=== PATIENT | female | born 1940 | race Caucasian/White ===

== ENCOUNTER 2016-11-26 19:45 | Emergency (ER) | payer MEDICARE, OTHER ==
[~2016-11-26] VITALS: Ht 157.4 cm; Wt 73.9 kg
[~2016-11-26 19:45] MED LIST: ALBUTEROL0.09 MG/A1 INH; APRESOLINE25 MG PO; ASPIRIN ADULT L81 M2 PO; ASPIRIN81 M1 PO; AUGMENTIN XR1000 MG PO; B-COMPLEX-501 CAP PO; BIAXIN500 MG PO; CARVEDILOL3.125 MG PO; CENTRUM1 TAB PO; CHERATUSSIN AC120 ML PO; CIPRO500 MG PO; CLINDAMYCIN300 MG PO; COUMADIN2.5 M1 PO; COUMADIN5 MG PO; COZAAR100 MG PO; DELTASONE20 MG PO; DIGOXIN0.25 MG PO; DILTIAZEM120 MG PO; DOXYCYCLINE HY100 M3 PO; DOXYCYCLINE100 M3 PO; DUONEB 3 MG/3 ML3 M1 INH; DUONEB 3ML 3 MG/3 ML INH; Esidrex,Oretic,25 MG PO; FELODIPINE10 MG PO; FUROSEMIDE40 MG PO; HYDR25T PO; HYDRALAZINE HYD50 MG PO; HYDROCHLOROTHIAZIDE; IMDUR SA30 MG PO; ISOSORBIDE30 MG PO; JANUVIA100 MG PO; JANUVIA50 MG PO; KLOR-CON M2020 MEQ PO; LANTUS100 U/ML SC; LASIX20 MG PO; LASIX40 MG PO; LISINOPRIL10 M1 PO; LISINOPRIL40 MG PO; Lasix80 MG PO; MEDROL DOSEPAK4 MG; MEDROL DOSEPAK4 MG PO; METFORMIN1000 MG PO; METOPROLOL SR25 MG PO; METOPROLOL SUCC50 M2 PO; MILK OF MA400 MG/5 M PO; MYSOLINE50 MG PO; Metformin Hydr500 MG PO; NAPROSYN375 MG PO; NIACIN400 MG PO; OMEPRAZOLE20 MG PO; PERCOCET 325 MG1 TA2 PO; PREDNISONE10 MG PO; PRIMIDONE50 MG PO; PROVENTIL0.09 MG/AC IH; Proloprim100 MG PO; ROBITUSSIN DM 105 ML PO; ROBITUSSIN PO; SYMBICORT1 AE1 INH; TOPROL XL100 MG PO; TOPROL XL50 M1 PO; VICODIN 5/500 505 MG PO; VITAMIN D1000 IU PO; XARE15TA PO; ZOCOR40 MG PO
[2016-11-26 20:18] LABS: BASO % 0.1 % (0.0-1.0); EOS # 0.1 10*3/uL (0.0-0.4); EOS % 1.6 % (1.0-4.0); HEMATOCRIT 36.5 % (37.0-47.0); HEMOGLOBIN 11.7 g/dl (12.0-16.0); LYMPH # 1.7 10*3/uL (1.3-4.4); LYMPH % 20.8 % (27.0-41.0); MEAN CELL VOLUME 90.3 fl (81.0-99.0); MEAN CORPUSCULAR HGB CONC 32.1 g/dl (33.0-37.0); MEAN PLATELET VOLUME 9.7 fl (9.6-12.3); MONO # 0.6 10*3/uL (0.1-1.0); MONO % 7.6 % (3.0-9.0); NEUT # 5.8 10*3/uL (2.3-7.9); NEUT % 69.7 % (47.0-73.0); PLATELET COUNT AUTOMATED 198 10*3/uL (130-400); RED BLOOD COUNT 4.04 10*6/uL (4.10-5.10); WHITE BLOOD COUNT 8.3 10*3/uL (4.8-10.8)
[2016-11-26 20:55] LABS: BILIRUBIN NEGATIVE (NEGATIVE); BLOOD 1+ (NEGATIVE); CLARITY SL CLOUDY (CLEAR); COLOR YELLOW (YELLOW); GLUCOSE NEGATIVE (NEGATIVE); KETONE NEGATIVE (NEGATIVE); LEUKO ESTERASE 2+ (NEGATIVE); NITRITE NEGATIVE (NEGATIVE); PROTEIN TRACE (NEGATIVE); SPECIFIC GRAVITY 1.015 (1.005-1.030); UROBILINOGEN 0.2 E.U./dl (0.2-1.0)
[2016-11-26 21:17] LABS: URINE REFLEX COMMENT YES (NO); WBC TNTC wbc/hpf (0-5)
[2016-11-26] MEDS ORDERED: CIPRO500 MG PO (22:26)
[2016-12-12] MEDS ORDERED: APRESOLINE25 MG PO (17:33)
[2016-12-12] MEDS ORDERED: SYMBICORT1 AE1 INH (17:34)
[2016-12-12] MEDS ORDERED: TYLENOL EXTRA500 M2 PO (17:35)
[2016-12-12] MEDS ORDERED: CALAN120 M1 PO (17:35)
[2016-12-12] MEDS ORDERED: TOPROL XL100 MG PO (17:40)
[2016-12-12] MEDS ORDERED: LISINOPRIL10 M1 PO (17:41)
[2016-12-13] MEDS ORDERED: OMEPRAZOLE D/R20 MG PO (10:08)
[2016-12-14] MEDS ORDERED: FUROSEMIDE80 MG PO (10:11)
[2016-12-14] MEDS ORDERED: METOPROLOL TART50 M1 PO (10:13)
[2016-12-21] MEDS ORDERED: K-LOR 20MEQ20 ME1 PO (11:20)
[2016-12-21] MEDS ORDERED: CALAN120 M1 PO (11:22)
[2016-12-21] MEDS ORDERED: LISINOPRIL10 M1 PO (11:24)
== END 2016-11-26 22:30 | disposition home or self-care (01) ==
LOC: ED 19:45
PROVIDERS: Emergency Medicine
DX: N39.0 Urinary tract infection, site not specified (principal); R50.9 Fever, unspecified; I48.91 Unspecified atrial fibrillation; I50.9 Heart failure, unspecified; I12.9 Hypertensive chronic kidney disease with stage 1 through stage 4 chronic kidney disease, or unspecified chronic kidney disease; N18.3 Chronic kidney disease, stage 3 (moderate); K21.9 Gastro-esophageal reflux disease without esophagitis; E78.5 Hyperlipidemia, unspecified; I25.2 Old myocardial infarction; E11.9 Type 2 diabetes mellitus without complications; E66.3 Overweight; Z68.29 Body mass index [BMI] 29.0-29.9, adult; Z88.8 Allergy status to other drugs, medicaments and biological substances

== ENCOUNTER → 2016-12-04 | Outpatient (CLI) | payer MEDICARE, OTHER ==
[~2016-12-04] MED LIST changes: +CALAN120 M1 PO; +FUROSEMIDE80 MG PO; +K-LOR 20MEQ20 ME1 PO; +METOPROLOL TART50 M1 PO; +OMEPRAZOLE D/R20 MG PO; +TYLENOL EXTRA500 M2 PO
[2016-12-04 10:34] LABS: POTASSIUM 4.5 mmol/L (3.5-5.1)
== END | disposition home or self-care (01) ==
LOC: LAB 09:46
PROVIDERS: Specialist
DX: I11.0 Hypertensive heart disease with heart failure (principal); I50.30 Unspecified diastolic (congestive) heart failure; R06.00 Dyspnea, unspecified; I48.91 Unspecified atrial fibrillation; N39.0 Urinary tract infection, site not specified

== ENCOUNTER → 2016-12-17 | Outpatient (CLI) | payer MEDICARE, OTHER ==
[2016-12-17 09:07] LABS: POTASSIUM 3.7 mmol/L (3.5-5.1)
== END | disposition home or self-care (01) ==
LOC: LAB 08:17
PROVIDERS: Specialist
DX: I11.0 Hypertensive heart disease with heart failure (principal); I50.30 Unspecified diastolic (congestive) heart failure; R06.00 Dyspnea, unspecified; I48.91 Unspecified atrial fibrillation; N39.0 Urinary tract infection, site not specified

== ENCOUNTER → 2017-02-18 | Outpatient (CLI) | payer MEDICARE, OTHER ==
[2017-02-18 08:57] LABS: POTASSIUM 4.4 mmol/L (3.5-5.1)
== END | disposition home or self-care (01) ==
LOC: LAB 08:01
PROVIDERS: Specialist
DX: I11.0 Hypertensive heart disease with heart failure (principal); I50.30 Unspecified diastolic (congestive) heart failure; R06.00 Dyspnea, unspecified; I48.91 Unspecified atrial fibrillation; N39.0 Urinary tract infection, site not specified

== ENCOUNTER → 2017-04-11 | Outpatient (CLI) | payer MEDICARE, OTHER ==
[2017-04-11 13:52] LABS: POTASSIUM 4.4 mmol/L (3.5-5.1)
== END | disposition home or self-care (01) ==
LOC: LAB 12:29
PROVIDERS: Specialist
DX: R05 Cough (principal); I11.0 Hypertensive heart disease with heart failure; I50.30 Unspecified diastolic (congestive) heart failure; E11.9 Type 2 diabetes mellitus without complications; J40 Bronchitis, not specified as acute or chronic; R06.00 Dyspnea, unspecified; I48.91 Unspecified atrial fibrillation; N39.0 Urinary tract infection, site not specified; Z95.0 Presence of cardiac pacemaker

== ENCOUNTER → 2017-04-23 | Outpatient (CLI) | payer MEDICARE, OTHER ==
[2017-04-23 09:40] LABS: POTASSIUM 4.1 mmol/L (3.5-5.1)
== END | disposition home or self-care (01) ==
LOC: LAB 08:40
PROVIDERS: Specialist
DX: I11.0 Hypertensive heart disease with heart failure (principal); I50.30 Unspecified diastolic (congestive) heart failure; I48.91 Unspecified atrial fibrillation; I44.2 Atrioventricular block, complete; R06.00 Dyspnea, unspecified; N39.0 Urinary tract infection, site not specified

== ENCOUNTER → 2017-05-09 | Outpatient (CLI) | payer MEDICARE, OTHER ==
[2017-05-09 08:52] LABS: POTASSIUM 4.6 mmol/L (3.5-5.1)
== END | disposition home or self-care (01) ==
LOC: LAB 08:11
PROVIDERS: Specialist
DX: I50.9 Heart failure, unspecified (principal); I48.91 Unspecified atrial fibrillation; I44.2 Atrioventricular block, complete

== ENCOUNTER → 2017-06-11 | Outpatient (CLI) | payer MEDICARE, OTHER ==
[2017-06-11 09:37] LABS: BILIRUBIN NEGATIVE (NEGATIVE); BLOOD TRACE-INTACT (NEGATIVE); CLARITY CLEAR (CLEAR); COLOR YELLOW (YELLOW); GLUCOSE NEGATIVE (NEGATIVE); KETONE NEGATIVE (NEGATIVE); LEUKO ESTERASE 2+ (NEGATIVE); NITRITE NEGATIVE (NEGATIVE); PROTEIN NEGATIVE (NEGATIVE); UROBILINOGEN 0.2 E.U./dl (0.2-1.0)
[2017-06-11 09:55] LABS: BACTERIA TRACE; RBC 0-2 rbc/hpf (0-2); WBC 16-20 wbc/hpf (0-5)
== END | disposition home or self-care (01) ==
LOC: LAB 09:20
PROVIDERS: Internal Medicine
DX: N39.0 Urinary tract infection, site not specified (principal)

== ENCOUNTER → 2017-07-02 | Outpatient (CLI) | payer MEDICARE, OTHER | END | disposition home or self-care (01) | LOC: RAD 09:43 | DX: N20.0 Calculus of kidney (principal); M47.896 Other spondylosis, lumbar region ==

== ENCOUNTER → 2017-07-22 | Outpatient (CLI) | payer MEDICARE, OTHER ==
[2017-07-22 12:51] LABS: CREATININE 1.26 mg/dL (0.55-1.02); POTASSIUM 4.2 mmol/L (3.5-5.1)
== END | disposition home or self-care (01) ==
LOC: LAB 11:59
PROVIDERS: Specialist
DX: I11.0 Hypertensive heart disease with heart failure (principal); I50.30 Unspecified diastolic (congestive) heart failure; I44.2 Atrioventricular block, complete; I48.91 Unspecified atrial fibrillation; N39.9 Disorder of urinary system, unspecified

== ENCOUNTER 2017-07-25 22:53 | Inpatient (IN) | payer MEDICARE, OTHER ==
[~2017-07-25] VITALS: Ht 157.4 cm; Wt 81.4 kg
--- NOTE | ~2017-07-25 | PR ---
[place], [place] PROGRESS NOTE NAME: JULIANNE MCNAMARA [facility] #: [id number] UNIT #: [id number] ROOM: 422 DOCTOR: JAVIER WHITT MD BIRTHDATE: [birth year] DOS: 07/29/2017 CARDIOLOGY PROGRESS NOTE. SUBJECTIVE: The patient is being seen prior to stress testing on 07/29/2017. The patient states that over the weekend, she did have episodes of hypotension and some breathlessness. Her diuretics were adjusted and she is feeling better today. She is breathing better. She does not have any peripheral edema. She denies any chest pain and her blood pressure is adequate. We did receive records from the [facility]. She was hospitalized in 12/2016 and did undergo an AV ashley ablation for heart rate control, followed by the placement of a Medtronic model 5076. A single ventricular lead and a Medtronic MRI safe pacemaker model A3SR01, serial #[id number]. PHYSICAL EXAMINATION: VITAL SIGNS: Today, her pulse is 70 and regular, blood pressure of 146/67. She is afebrile. NECK: Supple. She has no jugular distention. Carotids are full. LUNGS: Respirations are unlabored. Her chest is clear to auscultation and percussion. She has no presacral edema. HEART: Has a regular rhythm. I could not hear any gallops or murmurs. ABDOMEN: Soft. EXTREMITIES: Showed no edema. LABORATORY DATA: Monitor shows 100% ventricular pacing. She does have sinus rhythm with AV dissociation. Troponin levels over the weekend did show mild elevation in troponin consistent with demand supply mismatch. She did not have a typical rise/fall pattern to suggest acute myocardial infarction. IMPRESSION: 1. Chronic diastolic heart failure with acute exacerbation. 2. Status post AV ashley ablation for heart rate control. 3. Paroxysmal atrial fibrillation. The patient is currently in sinus rhythm with AV dissociation. 4. Hypotension from over diuresis. 5. Elevated troponin level, etiology to be determined, but likely due to supply demand mismatch brought on by the patient's urinary tract infection. PLAN: We will continue to adjust her medicines as indicated. She will proceed with a pharmacologic stress test today. Further recommendations will depend upon the results of her stress test. 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 I thank the hospitalist physicians for asking our advice regarding her care. [place], [place] PROGRESS NOTE NAME: JULIANNE MCNAMARA UNIT #: [id number] ROOM: [facility] DOCTOR: JAVIER WHITT MD BIRTHDATE: [birth year] JAVIER WHITT MD CM:PNTRANS [id number] JAVIER WHITT MD 07/29/17 1137 interface
[~2017-07-25 22:53] MED LIST changes: -JANUVIA50 MG PO; +ZESTRIL10 MG PO
[2017-07-25 22:59] VITALS: BP 202/93
[2017-07-25 23:41] VITALS: BP 129/56; BP 136/62
--- NOTE | 2017-07-26 00:07 | NUR ---
DR. SALTER NOTIFIED OF CRITICAL LACTIC ACID 2.5.
[2017-07-26 00:13] LABS: ACT PARTIAL THROMBO TIME 27.1 SECONDS (20.8-31.5)
[2017-07-26 00:21] LABS: ALBUMIN 3.5 gm/dl (3.1-4.5); ALKALINE PHOSPHATASE 77 U/L (45-117); BUN 23 mg/dl (7-24); CHLORIDE 108 mmol/L (98-107); CREATININE 1.06 mg/dL (0.55-1.02); LIPASE 208 U/L (73-393); MAGNESIUM 2.1 mg/dL (1.5-2.1); POTASSIUM 4.5 mmol/L (3.5-5.1); SGOT/AST 19 IU/L (3-35); SGPT/ALT 22 U/L (12-78); SODIUM 140 mmol/L (136-145)
[2017-07-26 00:28] LABS: BASO % 0.1 % (0.0-1.0); EOS # 0.3 10*3/uL (0.0-0.4); EOS % 1.9 % (1.0-4.0); HEMOGLOBIN 12.2 g/dl (12.0-16.0); LYMPH % 13.9 % (27.0-41.0); MEAN CELL VOLUME 90.5 fl (81.0-99.0); MEAN CORPUSCULAR HGB 29.8 pg (27.0-31.0); MEAN PLATELET VOLUME 11.1 fl (9.6-12.3); MONO # 0.9 10*3/uL (0.1-1.0); MONO % 6.1 % (3.0-9.0); NEUT # 11.1 10*3/uL (2.3-7.9); NEUT % 77.6 % (47.0-73.0); PLATELET COUNT AUTOMATED 191 10*3/uL (130-400); RED BLOOD COUNT 4.09 10*6/uL (4.10-5.10); RED CELL DISTRI WIDTH 12.6 % (0-14.5); TROPONIN I < 0.015 ng/ml (<0.045); WHITE BLOOD COUNT 14.3 10*3/uL (4.8-10.8)
[2017-07-26 01:07] LABS: BILIRUBIN NEGATIVE (NEGATIVE); BLOOD 1+ (NEGATIVE); CLARITY SL CLOUDY (CLEAR); COLOR YELLOW (YELLOW); GLUCOSE NEGATIVE (NEGATIVE); KETONE NEGATIVE (NEGATIVE); LEUKO ESTERASE 3+ (NEGATIVE); NITRITE NEGATIVE (NEGATIVE); PH 5.5 (5.0-9.0); SPECIFIC GRAVITY 1.025 (1.005-1.030); UROBILINOGEN 0.2 E.U./dl (0.2-1.0)
[2017-07-26 01:23] LABS: BACTERIA TRACE; WBC TNTC wbc/hpf (0-5)
[2017-07-26 02:03] VITALS: BP 129/54
[2017-07-26 02:50] VITALS: BP 121/53
--- NOTE | 2017-07-26 02:50 | NUR ---
A 76, admitted to , under the services of MICHAEL Sherman DO with a diagnosis of SOB, CHF. Chief complaint is SOB. Patient arrived via bed from ER. Monitor applied. Initial assessment completed. Vital signs taken and recorded. MICHAEL SHERMAN DO notified of admission to the unit. Orders received. See assessment for past medical history, medications and allergies. Patient and/or family oriented to unit. [facility] visitation policy reviewed. Clothing/patient valuable form completed. DEEPA PIZANO
--- NOTE | 2017-07-26 03:08 | NUR ---
CALLED DR. FUNEZ AT THIS TIME PERTAINING TO ABG ORDER THAT WAS ORDERED BY ER DOCTOR AT 11PM THAT WAS NEVER COLLECTED. ASKED IF HE STILL WANTED IT COLLECTED OR IF IT CAN BE CANCELLED, DR. FUNEZ STATED THAT IT COULD BE CANCELLED
[2017-07-26] MEDS ORDERED: VITAMIN C500 M4 PO (03:38)
[2017-07-26] MEDS ORDERED: METHENAMINE HIPP1 G1 PO (03:39)
[2017-07-26] MEDS ORDERED: MILLTRIUM SENI1 EACH PO (03:40)
--- NOTE | 2017-07-26 03:40 | NUR ---
MED REC UPDATED PER LIST PROVIDED BY LYSSA SHAH. MEDS REVIEWED ON MED REC. OTHER MEDS THAT WERE INCLUDED WERE NOT REVIEWED, BUT WERE SHOWN FILLED IN THE PATIENTS MED CLAIM HISTORY. WILL HAVE PHARMACY CALLED IN THE MORNING TO VERIFY MEDS
--- NOTE | 2017-07-26 03:58 | NUR ---
DR. FUNEZ NOTIFIED THAT PATIENTS MED REC UPDATED PER LIST PROVIDED, BUT NOTIFIED DR. FUNEZ OF MEDS THAT WERE ON THE PATIENTS MED CLAIM HISTORY AND NOT ON THE LIST. DR. FUNEZ STATED THAT HE WOULD LOOK MORE INTO IT AND THAT HE HAS TO COME UP AND SEE THE PATIENT STILL. THIS NURSE STATED THAT IT WOULD BE PASSED ON TO CALL [facility] BLOORS.
[2017-07-26 04:39] LABS: BASO % 0.2 % (0.0-1.0); EOS # 0.1 10*3/uL (0.0-0.4); EOS % 0.6 % (1.0-4.0); HEMATOCRIT 35.8 % (37.0-47.0); HEMOGLOBIN 11.5 g/dl (12.0-16.0); LYMPH # 1.8 10*3/uL (1.3-4.4); LYMPH % 15.8 % (27.0-41.0); MEAN CELL VOLUME 91.6 fl (81.0-99.0); MEAN CORPUSCULAR HGB 29.4 pg (27.0-31.0); MEAN CORPUSCULAR HGB CONC 32.1 g/dl (33.0-37.0); MEAN PLATELET VOLUME 10.4 fl (9.6-12.3); MONO # 0.9 10*3/uL (0.1-1.0); MONO % 7.3 % (3.0-9.0); NEUT # 8.8 10*3/uL (2.3-7.9); NEUT % 75.8 % (47.0-73.0); PLATELET COUNT AUTOMATED 171 10*3/uL (130-400); RED BLOOD COUNT 3.91 10*6/uL (4.10-5.10); RED CELL DISTRI WIDTH 12.9 % (0-14.5); WHITE BLOOD COUNT 11.6 10*3/uL (4.8-10.8)
--- NOTE | 2017-07-26 04:42 | NUR ---
Dr. Rivero notified of Lactic Acid of 2.7.
[2017-07-26 04:49] LABS: ACT PARTIAL THROMBO TIME 26.3 SECONDS (20.8-31.5)
[2017-07-26 05:11] LABS: ALBUMIN 3.5 gm/dl (3.1-4.5); CREATININE 1.09 mg/dL (0.55-1.02); MAGNESIUM 1.8 mg/dL (1.5-2.1); PHOSPHOROUS 2.8 mg/dL (2.5-4.9); POTASSIUM 4.5 mmol/L (3.5-5.1)
[2017-07-26 05:15] LABS: THYROID STIM HORMONE (HS) 1.1 uIU/ml (0.358-4.75)
--- NOTE | 2017-07-26 05:44 | NUR ---
DR. FUNEZ NOTIFIED OF CRITICAL LACTIC ACID. NO NEW ORDERS RECIEVED
--- NOTE | 2017-07-26 06:16 | NUR ---
DR. FUNEZ NOTIFIED OF CRITICAL TROPONIN. ORDER RECIEVED FOR PATIENT TO HAVE CONSULT WITH [facility] CARD[facility]
--- NOTE | 2017-07-26 06:24 | NUR ---
DR. WHITT PAGED AT THIS TIME
--- NOTE | 2017-07-26 06:31 | NUR ---
DR. WHITT NOTIFIED OF CONSULT SAID HE WOULD SEE PT. THIS MORNING.
[2017-07-26 07:06] LABS: VITAMIN D, 25-HYDROXY 33.7 ng/mL (30-100)
[2017-07-26 08:00] VITALS: BP 116/55
--- NOTE | 2017-07-26 09:00 | NUR ---
[employer] in to talk to patient. Patient states lives at home with son. There are no steps in the home. Physician: byron lua Pharmacy: [facility] Health services: none Patient's level of ADLs: INDEPENDENT Patient has working utilities: all working DME: none Follow-up physician's appointment after d/c: will be made by hospitalist nurse director upon discharge Does patient want to access PORTAL?: no Discharge plan discussed with patient, patient lives at home with son, states she is independent in adls and ambualtion, drives, patient states she will be going back home when able and denies any home needs. DMITRY OSULLIVAN
--- NOTE | 2017-07-26 09:44 | NUR ---
I spoke with Dr. Tejeda. Notified of consult, he states he was notified this am at 6. Aware of elevated troponins and notified him of last one of 0.242.
[2017-07-26 12:00] VITALS: BP 131/62
[2017-07-26] MEDS ORDERED: METOPROLOL SUC100 M1 PO (15:07)
--- NOTE | 2017-07-26 15:29 | NUR ---
CURRENT MEDICATION LIST FROM [facility] AND [facility] PUT IN CHART PER ORDERS FROM DR. JUARES. LIST WAS OBSERVE BY DR FOSTER AND DR JUARES.
[2017-07-26 16:00] VITALS: BP 110/52
[2017-07-26 20:00] VITALS: BP 99/50
[2017-07-27] VITALS (9 sets, daily range): BP systolic 80–116; BP diastolic 48–64
--- NOTE | 2017-07-27 00:10 | NUR ---
DOCTOR ONOFRE TO THE FLOOR INFORMED PATIENTS BP IS 82/52 PATIENT ASYPMTOMATIC AT THIS TIME. NO NEW RODERS AT THIS TIME.
[2017-07-27 07:05] LABS: BASO % 0.2 % (0.0-1.0); EOS # 0.2 10*3/uL (0.0-0.4); EOS % 2.2 % (1.0-4.0); HEMATOCRIT 35.3 % (37.0-47.0); HEMOGLOBIN 11.5 g/dl (12.0-16.0); LYMPH # 2.6 10*3/uL (1.3-4.4); LYMPH % 29.5 % (27.0-41.0); MEAN CELL VOLUME 92.4 fl (81.0-99.0); MEAN CORPUSCULAR HGB 30.1 pg (27.0-31.0); MEAN CORPUSCULAR HGB CONC 32.6 g/dl (33.0-37.0); MEAN PLATELET VOLUME 10.8 fl (9.6-12.3); MONO # 0.6 10*3/uL (0.1-1.0); MONO % 6.7 % (3.0-9.0); NEUT # 5.3 10*3/uL (2.3-7.9); NEUT % 60.9 % (47.0-73.0); PLATELET COUNT AUTOMATED 166 10*3/uL (130-400); RED BLOOD COUNT 3.82 10*6/uL (4.10-5.10); WHITE BLOOD COUNT 8.7 10*3/uL (4.8-10.8)
[2017-07-27 07:12] LABS: CREATININE 1.44 mg/dL (0.55-1.02); PHOSPHOROUS 3.4 mg/dL (2.5-4.9); POTASSIUM 4.6 mmol/L (3.5-5.1)
--- NOTE | 2017-07-27 07:55 | NUR ---
Shift chart check completed.
--- NOTE | 2017-07-27 11:27 | NUR ---
250CC BOLUS UP
--- NOTE | 2017-07-27 12:20 | NUR ---
DR. ELSA JUAREZ NOTIFIED OF MANUAL BLOOD PRESSURE POST 250CC IV FLUID BOLUS
--- NOTE | 2017-07-27 13:47 | NUR ---
SPOKE TO DR. JUAREZ/DR. GUSTAFSON AND NOTIFIED OF BLOOD PRESSURE OF 80/54, WELL PATIENT FEELING SYMPTOMATIC DIZZY AND NAUSEA. ORDER TO ADMINISTER ANOTHER 250CC NS BOLUS
--- NOTE | 2017-07-27 14:07 | NUR ---
PT COMPLAIN OF NAUSEA, ZOFRAN GIVEN
--- NOTE | 2017-07-27 15:00 | NUR ---
DR. JUAREZ NOTIFIED OF BLOOD PRESSURE 90/50 MANUAL AND PT STATES NO LONGER DIZZY AND NAUSEA HAS RESOLVED. NO NEW ORDERS AT THIS TIME
[2017-07-28] VITALS (7 sets, daily range): BP systolic 102–138; BP diastolic 50–72
--- NOTE | 2017-07-28 04:52 | NUR ---
24 HR chart check completed.
[2017-07-28 06:44] LABS: BUN 32 mg/dl (7-24); CHLORIDE 107 mmol/L (98-107); CREATININE 1.06 mg/dL (0.55-1.02); POTASSIUM 4.6 mmol/L (3.5-5.1); SODIUM 140 mmol/L (136-145)
--- NOTE | 2017-07-28 09:57 | NUR ---
MANUAL BLOOD PRESSURE READING 130/60. SCHEDULED METOPROLOL GIVEN. WILL MONITOR BLOOD PRESSURE. PT AWARE TO NOTIFY STAFF WITH DIZZINESS/NAUSEA.
--- NOTE | 2017-07-28 14:27 | NUR ---
PT GOT UP TO GO TO BATHROOM ON WAY BACK FELT SLIGHTLY DIZZY AND WEAK. BLOOD PRESSURE CHECKED 94/46. WILL CONTINUE TO MONITOR
--- NOTE | 2017-07-28 16:16 | NUR ---
MANUAL BLOOD PRESSURE DONE, PT STATE NO LONGER DIZZY OR NAUSEATED. NO COMPLAINTS AT THIS TIME
--- NOTE | 2017-07-28 16:20 | NUR ---
PT BLOOD SUGAR 195. PT DOES NOT WANT TO TAKE INSULIN FOR DINNER, SHE STATES SHE MAY NOT EAT DINNER OR IF SHE DOES SHE IS ONLY GOING TO ORDER TOAST. PT WILL BE NPO AT MIDNIGHT FOR TESTING.
[2017-07-29] VITALS: BP 124/76
--- NOTE | 2017-07-29 03:40 | NUR ---
24 HR chart check completed.
[2017-07-29 08:00] VITALS: BP 146/67
--- NOTE | 2017-07-29 08:55 | NUR ---
PATIENT TO CARDIAC REHAB FOR STRESS TEST BY WHEELCHAIR.
--- NOTE | 2017-07-29 09:32 | NUR ---
case management attempts to visit with patient, patient out of room for testing
--- NOTE | 2017-07-29 10:57 | NUR ---
INFORMED SIGNED CONSENT OBTAINED FOR LEXISCAN STRESS TEST WITH DR WHITT RESTING EKG PACED HR 75 BP 142/66. PULSE OX 98% LUNGS CLEAR. PT COMPLETED ONE MINUTE OF A LEXISCAN PROTOCOL WITH PT RECEIVING LEXISCAN 0.4MG IV OVER 10 SECONDS. PVC AND AV DISSOCIATION. NO ST CHANGES. PT C/O DIZZINESS, HEADACHE AND NAUSEA WITH INJECTIONS. LAST RECOVERY HR OF 70 BP 130/50. PT IN STABLE CONDITION, AWAITING NUCLEAR IMAGES.
[2017-07-29 12:00] VITALS: BP 154/58
--- NOTE | 2017-07-29 13:10 | NUR ---
PATIENT BACK FROM STRESS TEST, RESUMING DIET AND MEDS, SEE SHIFT ASSESSMENTS FOR DETAILS.
--- NOTE | 2017-07-29 14:31 | NUR ---
PHYSICAL THERAPY PAtient respectfully declines PT this date. Thank you for this referral. Christine Dukes,PT
--- NOTE | 2017-07-29 15:50 | NUR ---
PATIENT C/O SHORTNESS OF BREATH, DIZZINESS, NAUSEA, AND MALAISE/LOSS OF APPETITE AFTER AMBULATING TO . MEDICATED WITH PRN IV ZOFRAN FOR NAUSEA AND REPIRATORY THERAPIST IN TO ADMINISTER BREATHING TREATMENT.
[2017-07-29 16:00] VITALS: BP 144/60
--- NOTE | 2017-07-29 17:00 | NUR ---
PRN IV ZOFRAN EFFECTIVE FOR NAUSEA, PATIENT STATES STILL HAS A LOSS OF APPETITE, BUT FEELING BETTER AND NOT SHORT OF BREATH. PATIENT WAS SEEN BY RESIDENTS, WHO HAVE ENTERED DISCHARGE ORDERS AND THE PATIENT IS AWARE.
[2017-07-29] MEDS ORDERED: XARE20MG PO (17:01)
--- NOTE | 2017-07-29 19:00 | NUR ---
Discharge instructions reviewed with patient. Patient receptive and verbalizes understanding. Follow-up care arranged. Written instructions given to patient. PATIENT DISCHARGED TO [facility] BY WHEELCHAIR, ACCOMPANIED BY [facility], FOR TRANSPORT HOME BY PRIVATE VEHICLE WITH SON. MARYJANE NAVARRETE
== END 2017-07-29 19:00 | disposition home or self-care (01) | DRG 291 ==
LOC: ED 22:53 → 4E 07-26 02:30 → EDHOLD 07-26 02:30 → 4E 07-26 02:36
PROVIDERS: Hospitalist; Internal Medicine; Student in an Organized Health Care Education/Training Program; ADMIT Internal Medicine
PROC: 4A02XM4 Measurement of Cardiac Total Activity, External Approach (ICD-10-PCS; principal; 2017-07-29)
PROC: 3E073KZ Introduction of Other Diagnostic Substance into Coronary Artery, Percutaneous Approach (ICD-10-PCS; principal; 2017-07-29)
DX: I13.0 Hypertensive heart and chronic kidney disease with heart failure and stage 1 through stage 4 chronic kidney disease, or unspecified chronic kidney disease (principal); A41.9 Sepsis, unspecified organism; I95.9 Hypotension, unspecified; E11.22 Type 2 diabetes mellitus with diabetic chronic kidney disease; I48.0 Paroxysmal atrial fibrillation; N39.0 Urinary tract infection, site not specified; N18.3 Chronic kidney disease, stage 3 (moderate); I50.43 Acute on chronic combined systolic (congestive) and diastolic (congestive) heart failure; K21.9 Gastro-esophageal reflux disease without esophagitis; E78.5 Hyperlipidemia, unspecified; D64.9 Anemia, unspecified; E66.9 Obesity, unspecified; Z95.0 Presence of cardiac pacemaker; Z82.49 Family history of ischemic heart disease and other diseases of the circulatory system; Z79.4 Long term (current) use of insulin; Z84.89 Family history of other specified conditions; Z79.899 Other long term (current) drug therapy; Z68.32 Body mass index [BMI] 32.0-32.9, adult

== ENCOUNTER 2017-09-04 15:19 | Inpatient (IN) | payer MEDICARE, OTHER ==
[~2017-09-04] VITALS: Ht 157.4 cm; Wt 76.7 kg
[~2017-09-04 15:19] MED LIST changes: +METHENAMINE HIPP1 G1 PO; +METOPROLOL SUC100 M1 PO; +MILLTRIUM SENI1 EACH PO; +VITAMIN C500 M4 PO; +XARE20MG PO
[2017-09-04 15:28] VITALS: BP 94/53
--- NOTE | 2017-09-04 15:28 | NUR ---
PATIENT ALSO CO SOB WELL. PATIENT HAS CARDIAC HISTORY OF PACEMAKER.
[2017-09-04 15:37] VITALS: BP 94/58
[2017-09-04 16:01] LABS: BASO % 0.2 % (0.0-1.0); EOS # 0.1 10*3/uL (0.0-0.4); EOS % 0.7 % (1.0-4.0); HEMATOCRIT 44.1 % (37.0-47.0); HEMOGLOBIN 14.6 g/dl (12.0-16.0); LYMPH # 1.8 10*3/uL (1.3-4.4); LYMPH % 10.3 % (27.0-41.0); MEAN CELL VOLUME 89.8 fl (81.0-99.0); MEAN CORPUSCULAR HGB 29.7 pg (27.0-31.0); MEAN CORPUSCULAR HGB CONC 33.1 g/dl (33.0-37.0); MEAN PLATELET VOLUME 10.8 fl (9.6-12.3); MONO # 0.9 10*3/uL (0.1-1.0); MONO % 4.9 % (3.0-9.0); NEUT # 14.5 10*3/uL (2.3-7.9); NEUT % 83.4 % (47.0-73.0); PLATELET COUNT AUTOMATED 208 10*3/uL (130-400); RED BLOOD COUNT 4.91 10*6/uL (4.10-5.10); RED CELL DISTRI WIDTH 12.6 % (0-14.5); WHITE BLOOD COUNT 17.4 10*3/uL (4.8-10.8)
[2017-09-04 16:18] LABS: ALBUMIN 4.2 gm/dl (3.1-4.5); ALKALINE PHOSPHATASE 124 U/L (45-117); BUN 32 mg/dl (7-24); CHLORIDE 99 mmol/L (98-107); CREATININE 1.56 mg/dL (0.55-1.02); MAGNESIUM 1.9 mg/dL (1.5-2.1); SGOT/AST 153 IU/L (3-35); SGPT/ALT 66 U/L (12-78); SODIUM 142 mmol/L (136-145); TOTAL PROTEIN 8.5 gm/dL (6.4-8.2)
[2017-09-04 16:21] LABS: TROPONIN I < 0.015 ng/ml (<0.045)
[2017-09-04 16:42] LABS: ACT PARTIAL THROMBO TIME 21.2 SECONDS (20.8-31.5)
[2017-09-04 17:09] LABS: LIPASE 78345 U/L (73-393)
--- NOTE | 2017-09-04 18:00 | NUR ---
A 76, admitted to , under the services of MICHAEL Sherman DO with a diagnosis of ACUTE PANCREATITIS. Chief complaint is DIARRHEA. Patient arrived via ambulatory from ER. Monitor applied. Initial assessment completed. Vital signs taken and recorded. MICHAEL SHERMAN DO notified of admission to the unit. Orders received. See assessment for past medical history, medications and allergies. Patient and/or family oriented to unit. [facility] visitation policy reviewed. Clothing/patient valuable form completed. MASOOD RIVERA
[2017-09-04 18:09] VITALS: BP 103/47
[2017-09-04 20:00] VITALS: BP 126/52
[2017-09-05] VITALS: BP 124/50
[2017-09-05 02:02] LABS: BILIRUBIN NEGATIVE (NEGATIVE); BLOOD 1+ (NEGATIVE); CLARITY SL CLOUDY (CLEAR); COLOR YELLOW (YELLOW); GLUCOSE NEGATIVE (NEGATIVE); KETONE NEGATIVE (NEGATIVE); LEUKO ESTERASE 2+ (NEGATIVE); NITRITE NEGATIVE (NEGATIVE); PH 5.5 (5.0-9.0); SPECIFIC GRAVITY 1.025 (1.005-1.030); UROBILINOGEN 0.2 E.U./dl (0.2-1.0)
[2017-09-05 02:11] LABS: YEAST 1+
[2017-09-05 02:12] LABS: BACTERIA 1+; WBC 41-50 wbc/hpf (0-5)
[2017-09-05 06:21] LABS: BASO % 0.1 % (0.0-1.0); EOS # 0.2 10*3/uL (0.0-0.4); LYMPH # 2.1 10*3/uL (1.3-4.4); LYMPH % 28.1 % (27.0-41.0); MEAN CELL VOLUME 92.6 fl (81.0-99.0); MEAN CORPUSCULAR HGB 30.1 pg (27.0-31.0); MEAN CORPUSCULAR HGB CONC 32.5 g/dl (33.0-37.0); MEAN PLATELET VOLUME 10.5 fl (9.6-12.3); MONO # 0.5 10*3/uL (0.1-1.0); MONO % 6.9 % (3.0-9.0); NEUT # 4.7 10*3/uL (2.3-7.9); NEUT % 62.5 % (47.0-73.0); PLATELET COUNT AUTOMATED 151 10*3/uL (130-400); RED BLOOD COUNT 3.92 10*6/uL (4.10-5.10); WHITE BLOOD COUNT 7.6 10*3/uL (4.8-10.8)
[2017-09-05 06:25] LABS: HEMATOCRIT 36.3 % (37.0-47.0); HEMOGLOBIN 11.8 g/dl (12.0-16.0)
[2017-09-05 07:01] LABS: ALBUMIN 3.3 gm/dl (3.1-4.5); CREATININE 1.18 mg/dL (0.55-1.02); MAGNESIUM 1.9 mg/dL (1.5-2.1); PHOSPHOROUS 3.7 mg/dL (2.5-4.9); POTASSIUM 3.8 mmol/L (3.5-5.1); TOTAL PROTEIN 6.4 gm/dL (6.4-8.2)
[2017-09-05 07:06] LABS: ACT PARTIAL THROMBO TIME 23.6 SECONDS (20.8-31.5)
[2017-09-05 08:00] VITALS: BP 112/47
--- NOTE | 2017-09-05 08:26 | NUR ---
PT RESTING IN BED, NO DISTRESS NOTED, WILL MONITOR. CALL LIGHT WITHIN REACH
--- NOTE | 2017-09-05 08:30 | NUR ---
[employer]ations [employer]ists in to talk to patient. Patient states lives at HOME with HER SON. There are 0 steps in the home. Physician: DR BEAVERS Pharmacy: [facility] health services: NONE Patient's level of ADLs: INDEPENDENT Patient has working utilities: YES DME: NONE Follow-up physician's appointment after d/c: WILL BE MADE PRIOR TO DC Does patient want to access PORTAL?: Discharge plan HOME. MARIA D REA
[2017-09-05 11:10] LABS: CHOLESTEROL 158 mg/dL (<200); HDL CHOLESTEROL 52 mg/dl (40-60); LDL CHOLESTEROL 66 mg/dL (9-159); TRIGLYCERIDES 201 mg/dl (<150); VLDL CHOLESTEROL 40 mg/dL (6-40)
[2017-09-05 12:00] VITALS: BP 127/86
--- NOTE | 2017-09-05 12:23 | NUR ---
PT CONITNUES TO REST QUIETLY IN BED. NO DISTRESS NOTED. NO VOICED C/O. CALL LIGHT WITHIN REACH
--- NOTE | 2017-09-05 13:20 | NUR ---
PT AND PT FAMILY CONCERNED ABOUT PT NOT GETTING HER HOME MEDS (FLORIAN LASIX) DR RUEDA CALLED AND NOTIFIED
[2017-09-05 16:00] VITALS: BP 125/39
--- NOTE | 2017-09-05 17:08 | NUR ---
PT CONTINUES TO RET QUIETLY IN BED. NO DISTRESS NOTED. WILL MONITOR NO VOICED C/O. FAMILY AT BEDSIDE
--- NOTE | 2017-09-05 19:45 | NUR ---
PATIENT IS AWAKE, ALERT AND ORIENTED X3. PLEASANT AND COOPERATIVE. LUNGS ARE DIMINISHED THROUGHOUT LUNGFIELDS. ROOM AIR. ABDOMEN IS SOFT AND NON-TENDER UPON PALPATION, BOWEL SUONDS ARE NORMOACTIVE X 4 QUADS. NO EDEMA TO BLE , PPP. PATIETN DNEIES ANY PAIN OR DISCOMFORT. PATIENTS SON AND ARE IN THE ROOM AT THIS TIME. PATIETNS SON AND ARE ASKING MULITPLE QUESTIONS ABOUT WHY THIS PATIEN IS NOT GETTING HER HOME MEDICATIONS. EXPLAINED TO PATIETNS FAMILY THAT THE PHYSICIANS ARE AWARE AND THAT PATIETNS WITH PANCREATITIS DO NOT USUALLY GET ORAL MEDICAITON. FAMILY STATES THAT SHE MUST HAVE HER LASIX. ALSO INFORMED THAT THE PHYSICIANS ARE AWARE THAT THIS PATIENT TAKES LASIX AND THAT THEY ARE WATCHING FOR ANY S/S OF CHF ALSO WITH ALL OF THE NURSES. PATIENT FAMILY STILL INSISTS THAT THIS DOES NOT MAKE ANY SENSE TO THEM AT THIS TIME. INFORMED DR. BARRAZA OF THE FAMILYS CONCERNS AND THE REQUEST FROM THE FAMILY TO SPEAK WITH THE PHYSICIAN . PER DR. BARRAZA HE WILL COME UP AND SPEAK TO THEM.
[2017-09-05 20:00] VITALS: BP 145/72
--- NOTE | 2017-09-05 21:16 | NUR ---
DR. BARRAZA CALLED AT THIS TIME. DUE THE FAMILY STATING THAT THEY HAVE BEEN WAITING A LONG TIME. EXPLAINED TO FMAILY THAT DR. BARRAZA WOULDBE UP SHORTLY TO SPEAK WITH THEM AND THAT HE HAS BEEN DOING ADMISSIONS . FAMLY STATES THAT THEY UNDERSTAND. DR. BARRAZA STATES THAT HE WILL BE UP SHORTLY.
--- NOTE | 2017-09-05 21:50 | NUR ---
PATIENTS SON AT THE DESK AT THIS TIME STATING THAT HE IS VERY DISSAPPOINTED AND DOESN'T UNDERSTAND WHY THE PHYSICIAN HAS NOT AT LEAST MADE A FEW MINUTES TO SPEAK WITH HIM ND HIS BROTHER ABOUT THEIR CONCERNS. AGAIN A CALL WAS PLACED TO DR. AYERS WHO STATED TO INFORM THE FAMILY THAT HE HAD BEEN REVIEWING THE PATIENTS CHART AND ADDING BACK SOME HOME MEDICATIONS AND WOULOD BE UP SOON TO SPEK WITH THEM. INFOMRED THE FAMILY. THE SON PABLO STATES THAT HE CANNOT WAIT ANY LONGER BUT THAT HIS BROTHER MITZI WILL STAY A FEW MORE MINUTES.
--- NOTE | 2017-09-05 22:00 | NUR ---
DR. MALDONADO AND DR. AYERS IN THE ROOM AT THIS TIME TO SPEAK WITH PATIETNS SON MITZI AND ALSO PATIENT.
--- NOTE | 2017-09-05 23:05 | NUR ---
DR. MALDONADO AND DR. AYERS AT THIS TIME FINISHING UP SPEAKING WITH THIS PATIENT NAD HER SON. BOTH VERBALIZE UNDERSTANDING OF THE TEACHING PROVIDED BY THE PHYSICIANS.
[2017-09-06] VITALS: BP 143/7
--- NOTE | 2017-09-06 | NUR ---
PATIENT RESTING IN BED WITH EYES CLOSED BILATERALLY. RESPIRATIONS ARE EASY AND REGULAR. NO S/S OF PAIN OR DISCOMFORT. CALL LIGHT IS IN REACH.
--- NOTE | 2017-09-06 00:20 | NUR ---
PER DR. AYERS THIS PATIENTS FLUIDS MAY BE DECREASED TO 40ML/HR.
--- NOTE | 2017-09-06 02:00 | NUR ---
PATIENT AMBULATORY AT THIS TIEM TO THE RESTROOM. TOLERATED THE EXERTION WELL. NO SHORTNESS OF BREATH AT THIS TIME. DENIES ANY PAIN OR DISCOMFORT. CALL LIGHT IS IN REACH.
--- NOTE | 2017-09-06 04:30 | NUR ---
PATIENT STATES THAT SHE CANNOT GET ANY REST IN THE BED AND THAT IT IS UNCOMFORTABLE. PATIENT PROVIDED WITH A RECLINER CHAIR AT THIS TIME. CALL LIGHT IS IN REACH.
--- NOTE | 2017-09-06 06:00 | NUR ---
PATIENT RESTING IN RECLINER , EYES CLOSED BILATERALLY. RESPIRATIONS ARE EASY AND REGULAR. PATIENT AROUSES EASILY FOR MORNING MEDICATION. DENIES ANY NEEDS AT THE PRESENT TIME. CALL LIGHT IS IN REACH.
[2017-09-06 07:54] LABS: BASO % 0.2 % (0.0-1.0); EOS # 0.1 10*3/uL (0.0-0.4); EOS % 1.6 % (1.0-4.0); HEMOGLOBIN 11.3 g/dl (12.0-16.0); LYMPH # 2.1 10*3/uL (1.3-4.4); LYMPH % 23.8 % (27.0-41.0); MEAN CELL VOLUME 92.3 fl (81.0-99.0); MEAN CORPUSCULAR HGB 29.8 pg (27.0-31.0); MEAN CORPUSCULAR HGB CONC 32.3 g/dl (33.0-37.0); MEAN PLATELET VOLUME 11.1 fl (9.6-12.3); MONO # 0.6 10*3/uL (0.1-1.0); MONO % 6.5 % (3.0-9.0); NEUT # 5.8 10*3/uL (2.3-7.9); NEUT % 67.6 % (47.0-73.0); PLATELET COUNT AUTOMATED 139 10*3/uL (130-400); RED BLOOD COUNT 3.79 10*6/uL (4.10-5.10); RED CELL DISTRI WIDTH 12.7 % (0-14.5); WHITE BLOOD COUNT 8.6 10*3/uL (4.8-10.8)
[2017-09-06 08:00] VITALS: BP 170/78
--- NOTE | 2017-09-06 08:04 | NUR ---
PT RESTING AT SIDE OF BED WITH FAMILY MEMBER STATES "FEELING S.O.B & NAUSEOUS" DENIES C/O CHEST PAIN. EASY RESPIRATIONS WITH SKIN W/D. ABD SOFT WITH ACTIVE BS THRUGHOUT. NON-TENDER TO PALPATION. GAVE ANTIHYPERTENSIVE DUE TO INCREASED BP & PRN ZOFRAN AT PTS REQUEST FOR C/O NAUSEA. NASAL O2 FOR COMFORT. OFFERED SUPPORTIVE CARE, ASSISTED TO LIE BACK INTO THE BED. ENCOURAGED TO USE CALL LIGHT SYSTEM FOR ASSISTANCE. IVF PER ORDERS. SEE SHIFT ASSESSMENT.
[2017-09-06 08:15] LABS: ALBUMIN 3.2 gm/dl (3.1-4.5); ALKALINE PHOSPHATASE 88 U/L (45-117); CHLORIDE 105 mmol/L (98-107); CREATININE 0.92 mg/dL (0.55-1.02); LIPASE 321 U/L (73-393); SGOT/AST 38 IU/L (3-35); SGPT/ALT 48 U/L (12-78); SODIUM 143 mmol/L (136-145); TOTAL PROTEIN 6.6 gm/dL (6.4-8.2)
[2017-09-06 08:19] LABS: BUN 20 mg/dl (7-24)
--- NOTE | 2017-09-06 10:29 | NUR ---
DR GUSTAFSON IN TO SEE PT & DISCUSS PLAN OF CARE.
[2017-09-06 12:00] VITALS: BP 129/60
--- NOTE | 2017-09-06 14:55 | NUR ---
PT STATES CLI LIQ DIET DID NOT SETTLE WELL WITH HER. SHE DENIES NAUSEA BUT ADMITS TO "BLOATING FEELING" AND JUST GENERALLLY NOT WANTING TO EAT.
[2017-09-06 16:00] VITALS: BP 134/60
--- NOTE | 2017-09-06 18:12 | NUR ---
PT GIVEN TYLENOL FOR LOW GRADE TEMP.
[2017-09-06 20:00] VITALS: BP 103/57
[2017-09-07] VITALS: BP 112/58
[2017-09-07 06:58] LABS: BASO % 0.1 % (0.0-1.0); EOS # 0.2 10*3/uL (0.0-0.4); EOS % 2.5 % (1.0-4.0); HEMOGLOBIN 10.3 g/dl (12.0-16.0); LYMPH # 1.5 10*3/uL (1.3-4.4); LYMPH % 22.4 % (27.0-41.0); MEAN CELL VOLUME 90.4 fl (81.0-99.0); MEAN CORPUSCULAR HGB CONC 33.2 g/dl (33.0-37.0); MONO # 0.6 10*3/uL (0.1-1.0); MONO % 8.5 % (3.0-9.0); NEUT # 4.5 10*3/uL (2.3-7.9); NEUT % 66.1 % (47.0-73.0); PLATELET COUNT AUTOMATED 103 10*3/uL (130-400); RED BLOOD COUNT 3.43 10*6/uL (4.10-5.10); RED CELL DISTRI WIDTH 12.8 % (0-14.5); WHITE BLOOD COUNT 6.7 10*3/uL (4.8-10.8)
[2017-09-07 07:06] LABS: ALBUMIN 2.9 gm/dl (3.1-4.5); ALKALINE PHOSPHATASE 86 U/L (45-117); BUN 20 mg/dl (7-24); CHLORIDE 106 mmol/L (98-107); CREATININE 0.89 mg/dL (0.55-1.02); LIPASE 178 U/L (73-393); POTASSIUM 3.7 mmol/L (3.5-5.1); SGOT/AST 35 IU/L (3-35); SGPT/ALT 49 U/L (12-78); SODIUM 140 mmol/L (136-145); TOTAL PROTEIN 6.2 gm/dL (6.4-8.2)
[2017-09-07 08:00] VITALS: BP 131/47
--- NOTE | 2017-09-07 09:45 | NUR ---
DR GUSTAFSON IN TO SEE PT. NEW ORDERS RECEIVED.
[2017-09-07 12:00] VITALS: BP 110/68
--- NOTE | 2017-09-07 12:43 | NUR ---
DR SPRAGUE NOTIFIED THAT PT TOLERATE A SOFT DIET WITHOUT ANY ABD. PAIN OR NAUSEA. PT DID C/O SOME DIZZINESS EARLIER BUT DENIES DIZZINESS NOW. DR SPRAGUE STATES THEY WILL WORK ON DISCHARGING PT.
--- NOTE | 2017-09-07 14:25 | NUR ---
Discharge instructions reviewed with patient/family. Patient receptive and verbalizes understanding. Follow-up care arranged. Written instructions given to patient/family. SHERRY LICONA
== END 2017-09-07 14:25 | disposition home or self-care (01) | DRG 438 ==
LOC: ED 15:19 → EDHOLD 17:14 → 5E 17:14
PROVIDERS: Hospitalist; Internal Medicine; Physician Assistant; ADMIT Internal Medicine
DX: K85.90 Acute pancreatitis without necrosis or infection, unspecified (principal); I21.4 Non-ST elevation (NSTEMI) myocardial infarction; N17.0 Acute kidney failure with tubular necrosis; I50.32 Chronic diastolic (congestive) heart failure; I13.0 Hypertensive heart and chronic kidney disease with heart failure and stage 1 through stage 4 chronic kidney disease, or unspecified chronic kidney disease; D64.9 Anemia, unspecified; E78.5 Hyperlipidemia, unspecified; K21.9 Gastro-esophageal reflux disease without esophagitis; N18.3 Chronic kidney disease, stage 3 (moderate); E11.22 Type 2 diabetes mellitus with diabetic chronic kidney disease; E66.9 Obesity, unspecified; K80.20 Calculus of gallbladder without cholecystitis without obstruction; I48.91 Unspecified atrial fibrillation; Z87.440 Personal history of urinary (tract) infections; Z95.0 Presence of cardiac pacemaker; Z88.8 Allergy status to other drugs, medicaments and biological substances; Z79.899 Other long term (current) drug therapy; Z79.4 Long term (current) use of insulin; Z82.49 Family history of ischemic heart disease and other diseases of the circulatory system; Z80.8 Family history of malignant neoplasm of other organs or systems; Z84.89 Family history of other specified conditions; Z68.30 Body mass index [BMI] 30.0-30.9, adult

== ENCOUNTER → 2017-10-07 | Outpatient (CLI) | payer MEDICARE, OTHER ==
[2017-10-07 10:59] LABS: BASO % 0.1 % (0.0-1.0); EOS # 0.3 10*3/uL (0.0-0.4); EOS % 2.9 % (1.0-4.0); HEMATOCRIT 40.9 % (37.0-47.0); HEMOGLOBIN 13.2 g/dl (12.0-16.0); LYMPH # 3.5 10*3/uL (1.3-4.4); MEAN CELL VOLUME 91.3 fl (81.0-99.0); MEAN CORPUSCULAR HGB 29.5 pg (27.0-31.0); MEAN CORPUSCULAR HGB CONC 32.3 g/dl (33.0-37.0); MEAN PLATELET VOLUME 10.4 fl (9.6-12.3); MONO # 0.6 10*3/uL (0.1-1.0); MONO % 7.1 % (3.0-9.0); NEUT # 4.5 10*3/uL (2.3-7.9); NEUT % 50.7 % (47.0-73.0); PLATELET COUNT AUTOMATED 195 10*3/uL (130-400); RED BLOOD COUNT 4.48 10*6/uL (4.10-5.10); RED CELL DISTRI WIDTH 13.4 % (0-14.5); WHITE BLOOD COUNT 8.9 10*3/uL (4.8-10.8)
[2017-10-07 11:22] LABS: CREATININE 1.39 mg/dL (0.55-1.02); POTASSIUM 4.4 mmol/L (3.5-5.1); TOTAL PROTEIN 8.1 gm/dL (6.4-8.2)
== END | disposition home or self-care (01) ==
LOC: LAB 10:32
PROVIDERS: Nurse Practitioner Primary Care
DX: R06.02 Shortness of breath (principal); R09.89 Other specified symptoms and signs involving the circulatory and respiratory systems; R05 Cough; R19.7 Diarrhea, unspecified; I10 Essential (primary) hypertension; I48.91 Unspecified atrial fibrillation

== ENCOUNTER → 2017-10-23 | Outpatient (CLI) | payer MEDICARE, OTHER ==
[2017-10-23 09:21] LABS: BUN 29 mg/dl (7-24); CHLORIDE 105 mmol/L (98-107); CREATININE 0.97 mg/dL (0.55-1.02); POTASSIUM 4.3 mmol/L (3.5-5.1); SODIUM 144 mmol/L (136-145)
== END | disposition home or self-care (01) ==
LOC: LAB 08:22
PROVIDERS: Specialist
DX: I44.2 Atrioventricular block, complete (principal)

== ENCOUNTER 2017-11-27 20:05 | Inpatient (IN) | payer MEDICARE, OTHER ==
[~2017-11-27] VITALS: Ht 157 cm; Wt 81.2 kg
[2017-11-27 20:13] VITALS: BP 136/62
[2017-11-27 20:43] LABS: BILIRUBIN NEGATIVE (NEGATIVE); BLOOD 1+ (NEGATIVE); CLARITY CLOUDY (CLEAR); COLOR YELLOW (YELLOW); GLUCOSE NEGATIVE (NEGATIVE); KETONE NEGATIVE (NEGATIVE); LEUKO ESTERASE 3+ (NEGATIVE); NITRITE NEGATIVE (NEGATIVE); PH 5.5 (5.0-9.0); UROBILINOGEN 0.2 E.U./dl (0.2-1.0)
[2017-11-27 20:48] LABS: WBC TNTC wbc/hpf (0-5)
[2017-11-27 21:00] VITALS: BP 100/60
[2017-11-27 21:20] LABS: BASO % 0.2 % (0.0-1.0); EOS # 0.1 10*3/uL (0.0-0.4); EOS % 0.3 % (1.0-4.0); HEMATOCRIT 37.7 % (37.0-47.0); HEMOGLOBIN 12.6 g/dl (12.0-16.0); LYMPH # 2.2 10*3/uL (1.3-4.4); LYMPH % 12.6 % (27.0-41.0); MEAN CELL VOLUME 88.9 fl (81.0-99.0); MEAN CORPUSCULAR HGB 29.7 pg (27.0-31.0); MEAN CORPUSCULAR HGB CONC 33.4 g/dl (33.0-37.0); MEAN PLATELET VOLUME 10.8 fl (9.6-12.3); MONO # 0.9 10*3/uL (0.1-1.0); MONO % 4.9 % (3.0-9.0); NEUT # 14.3 10*3/uL (2.3-7.9); NEUT % 81.5 % (47.0-73.0); PLATELET COUNT AUTOMATED 220 10*3/uL (130-400); RED BLOOD COUNT 4.24 10*6/uL (4.10-5.10); RED CELL DISTRI WIDTH 13.3 % (0-14.5); WHITE BLOOD COUNT 17.6 10*3/uL (4.8-10.8)
[2017-11-27 21:30] LABS: ACT PARTIAL THROMBO TIME 29.3 SECONDS (20.8-31.5); INTERNATIONAL NORM RATIO 1.1 (2.0-3.5)
[2017-11-27 21:40] LABS: ALBUMIN 3.7 gm/dl (3.1-4.5); CREATININE 1.16 mg/dL (0.55-1.02); TOTAL PROTEIN 7.7 gm/dL (6.4-8.2)
[2017-11-27 21:51] LABS: TROPONIN I 0.056 ng/ml (<0.045)
[2017-11-27 22:00] VITALS: BP 95/53
[2017-11-27 22:55] VITALS: BP 98/57
[2017-11-28 03:20] LABS: BASO % 0.1 % (0.0-1.0); EOS % 0.2 % (1.0-4.0); LYMPH % 20.8 % (27.0-41.0); MEAN CELL VOLUME 90.1 fl (81.0-99.0); MEAN CORPUSCULAR HGB 29.3 pg (27.0-31.0); MEAN CORPUSCULAR HGB CONC 32.5 g/dl (33.0-37.0); MEAN PLATELET VOLUME 10.4 fl (9.6-12.3); MONO # 0.7 10*3/uL (0.1-1.0); MONO % 6.9 % (3.0-9.0); NEUT # 6.9 10*3/uL (2.3-7.9); NEUT % 71.6 % (47.0-73.0); PLATELET COUNT AUTOMATED 155 10*3/uL (130-400); RED BLOOD COUNT 3.55 10*6/uL (4.10-5.10); RED CELL DISTRI WIDTH 13.2 % (0-14.5); WHITE BLOOD COUNT 9.6 10*3/uL (4.8-10.8)
[2017-11-28 03:29] LABS: HEMOGLOBIN 10.4 g/dl (12.0-16.0)
[2017-11-28 03:30] LABS: INTERNATIONAL NORM RATIO 1.1 (2.0-3.5)
[2017-11-28 03:36] LABS: ALBUMIN 3.1 gm/dl (3.1-4.5); ALKALINE PHOSPHATASE 69 U/L (45-117); BUN 24 mg/dl (7-24); CHLORIDE 106 mmol/L (98-107); CHOLESTEROL 143 mg/dL (<200); CREATININE 1.02 mg/dL (0.55-1.02); HDL CHOLESTEROL 51 mg/dl (40-60); LDL CHOLESTEROL 67 mg/dL (9-159); PHOSPHOROUS 4.3 mg/dL (2.5-4.9); POTASSIUM 3.7 mmol/L (3.5-5.1); SGOT/AST 17 IU/L (3-35); SGPT/ALT 21 U/L (12-78); SODIUM 142 mmol/L (136-145); TOTAL PROTEIN 6.4 gm/dL (6.4-8.2); TRIGLYCERIDES 123 mg/dl (<150); VLDL CHOLESTEROL 25 mg/dL (6-40)
[2017-11-28 03:41] LABS: THYROID STIM HORMONE (HS) 0.557 uIU/ml (0.358-4.75)
[2017-11-28 04:04] LABS: VITAMIN D, 25-HYDROXY 17.5 ng/mL (30-100)
[2017-11-28 08:00] VITALS: BP 106/62
[2017-11-28 12:00] VITALS: BP 104/63
[2017-11-28 16:00] VITALS: BP 125/69
[2017-11-28 20:00] VITALS: BP 122/71
[2017-11-29] VITALS: BP 107/54
[2017-11-29 06:38] LABS: BASO % 0.2 % (0.0-1.0); EOS # 0.2 10*3/uL (0.0-0.4); EOS % 1.9 % (1.0-4.0); HEMATOCRIT 32.8 % (37.0-47.0); HEMOGLOBIN 10.9 g/dl (12.0-16.0); LYMPH # 2.7 10*3/uL (1.3-4.4); LYMPH % 30.9 % (27.0-41.0); MEAN CELL VOLUME 90.4 fl (81.0-99.0); MEAN CORPUSCULAR HGB CONC 33.2 g/dl (33.0-37.0); MONO # 0.6 10*3/uL (0.1-1.0); MONO % 7.2 % (3.0-9.0); NEUT # 5.2 10*3/uL (2.3-7.9); NEUT % 59.6 % (47.0-73.0); PLATELET COUNT AUTOMATED 172 10*3/uL (130-400); RED BLOOD COUNT 3.63 10*6/uL (4.10-5.10); RED CELL DISTRI WIDTH 13.3 % (0-14.5); WHITE BLOOD COUNT 8.8 10*3/uL (4.8-10.8)
[2017-11-29 06:58] LABS: CREATININE 1.11 mg/dL (0.55-1.02); POTASSIUM 3.7 mmol/L (3.5-5.1)
[2017-11-29 08:00] VITALS: BP 118/64
[2017-11-29 12:00] VITALS: BP 118/64
[2017-11-29 16:00] VITALS: BP 120/59
[2017-11-29 20:00] VITALS: BP 125/65
[2017-11-30] VITALS: BP 120/68
[2017-11-30 08:00] VITALS: BP 122/87
[2017-11-30] MEDS ORDERED: ASPIRIN ADULT L81 M2 PO (11:58)
[2017-11-30] MEDS ORDERED: CIPRO500 MG PO (11:58)
[2017-11-30 12:00] VITALS: BP 126/82
== END 2017-11-30 13:50 | disposition home or self-care (01) | DRG 683 ==
LOC: ED 20:05 → 5E 22:25 → EDHOLD 22:25 → 5E 22:36
PROVIDERS: Hospitalist; Physician Assistant; Student in an Organized Health Care Education/Training Program
DX: N17.9 Acute kidney failure, unspecified (principal); N39.0 Urinary tract infection, site not specified; E11.22 Type 2 diabetes mellitus with diabetic chronic kidney disease; E87.2 Acidosis; E11.65 Type 2 diabetes mellitus with hyperglycemia; I13.0 Hypertensive heart and chronic kidney disease with heart failure and stage 1 through stage 4 chronic kidney disease, or unspecified chronic kidney disease; I50.42 Chronic combined systolic (congestive) and diastolic (congestive) heart failure; N18.3 Chronic kidney disease, stage 3 (moderate); I25.5 Ischemic cardiomyopathy; K21.9 Gastro-esophageal reflux disease without esophagitis; E66.9 Obesity, unspecified; I48.0 Paroxysmal atrial fibrillation; E78.5 Hyperlipidemia, unspecified; Z95.0 Presence of cardiac pacemaker; Z82.49 Family history of ischemic heart disease and other diseases of the circulatory system; I25.2 Old myocardial infarction; Z79.899 Other long term (current) drug therapy; Z82.3 Family history of stroke; Z81.2 Family history of tobacco abuse and dependence; Z80.8 Family history of malignant neoplasm of other organs or systems; Z79.4 Long term (current) use of insulin; Z68.31 Body mass index [BMI] 31.0-31.9, adult; Z79.84 Long term (current) use of oral hypoglycemic drugs

== ENCOUNTER → 2017-12-26 | Outpatient (CLI) | payer MEDICARE, OTHER ==
[2017-12-26 09:01] LABS: CREATININE 1.15 mg/dL (0.55-1.02); POTASSIUM 4.3 mmol/L (3.5-5.1)
== END | disposition home or self-care (01) ==
LOC: LAB 08:24
PROVIDERS: Specialist
DX: I44.2 Atrioventricular block, complete (principal)

== ENCOUNTER → 2018-01-27 | Outpatient (CLI) | payer MEDICARE, OTHER ==
[2018-01-27 11:46] LABS: BUN 31 mg/dl (7-24); CHLORIDE 104 mmol/L (98-107); CREATININE 0.97 mg/dL (0.55-1.02); POTASSIUM 4.1 mmol/L (3.5-5.1); SODIUM 141 mmol/L (136-145)
== END | disposition home or self-care (01) ==
LOC: LAB 10:50
PROVIDERS: Specialist
DX: I44.2 Atrioventricular block, complete (principal); I48.91 Unspecified atrial fibrillation; I50.9 Heart failure, unspecified

== ENCOUNTER → 2018-02-25 | Outpatient (CLI) | payer MEDICARE, OTHER ==
[2018-02-25 08:21] LABS: BASO % 0.3 % (0.0-1.0); EOS # 0.3 10*3/uL (0.0-0.4); EOS % 3.1 % (1.0-4.0); HEMATOCRIT 39.1 % (37.0-47.0); HEMOGLOBIN 12.5 g/dl (12.0-16.0); LYMPH # 2.2 10*3/uL (1.3-4.4); LYMPH % 23.9 % (27.0-41.0); MEAN CELL VOLUME 91.1 fl (81.0-99.0); MEAN CORPUSCULAR HGB 29.1 pg (27.0-31.0); MEAN PLATELET VOLUME 10.2 fl (9.6-12.3); MONO # 0.6 10*3/uL (0.1-1.0); MONO % 6.8 % (3.0-9.0); NEUT % 65.6 % (47.0-73.0); PLATELET COUNT AUTOMATED 206 10*3/uL (130-400); RED BLOOD COUNT 4.29 10*6/uL (4.10-5.10); WHITE BLOOD COUNT 9.1 10*3/uL (4.8-10.8)
[2018-02-25 08:55] LABS: ALBUMIN 3.7 gm/dl (3.1-4.5); ALKALINE PHOSPHATASE 76 U/L (45-117); BILIRUBIN, DIRECT < 0.1 mg/dL (0.0-0.2); BUN 33 mg/dl (7-24); CHLORIDE 102 mmol/L (98-107); CHOLESTEROL 182 mg/dL (<200); CREATININE 0.98 mg/dL (0.55-1.02); HDL CHOLESTEROL 56 mg/dl (40-60); LDL CHOLESTEROL 85 mg/dL (9-159); POTASSIUM 4.1 mmol/L (3.5-5.1); SGOT/AST 18 IU/L (3-35); SGPT/ALT 20 U/L (12-78); SODIUM 143 mmol/L (136-145); TOTAL PROTEIN 7.7 gm/dL (6.4-8.2); TRIGLYCERIDES 203 mg/dl (<150); VLDL CHOLESTEROL 41 mg/dL (6-40)
== END | disposition home or self-care (01) ==
LOC: LAB 07:52
PROVIDERS: Specialist
DX: I48.2 Chronic atrial fibrillation (principal); I50.32 Chronic diastolic (congestive) heart failure; E11.8 Type 2 diabetes mellitus with unspecified complications; R82.99 Other abnormal findings in urine

== ENCOUNTER → 2018-04-03 | Outpatient (CLI) | payer MEDICARE, OTHER | END | disposition home or self-care (01) | LOC: RAD 11:42 | DX: N20.0 Calculus of kidney (principal); E11.9 Type 2 diabetes mellitus without complications; N39.0 Urinary tract infection, site not specified; I10 Essential (primary) hypertension; Z95.0 Presence of cardiac pacemaker ==

== ENCOUNTER → 2018-05-06 | Outpatient (CLI) | payer MEDICARE, OTHER ==
[2018-05-06 11:27] LABS: BASO % 0.2 % (0.0-1.0); EOS # 0.3 10*3/uL (0.0-0.4); EOS % 3.8 % (1.0-4.0); HEMATOCRIT 38.3 % (37.0-47.0); HEMOGLOBIN 12.5 g/dl (12.0-16.0); LYMPH # 2.3 10*3/uL (1.3-4.4); LYMPH % 27.6 % (27.0-41.0); MEAN CELL VOLUME 89.7 fl (81.0-99.0); MEAN CORPUSCULAR HGB 29.3 pg (27.0-31.0); MEAN CORPUSCULAR HGB CONC 32.6 g/dl (33.0-37.0); MEAN PLATELET VOLUME 10.4 fl (9.6-12.3); MONO # 0.7 10*3/uL (0.1-1.0); MONO % 8.2 % (3.0-9.0); NEUT # 4.9 10*3/uL (2.3-7.9); NEUT % 59.8 % (47.0-73.0); PLATELET COUNT AUTOMATED 184 10*3/uL (130-400); RED BLOOD COUNT 4.27 10*6/uL (4.10-5.10); RED CELL DISTRI WIDTH 13.6 % (0-14.5); WHITE BLOOD COUNT 8.2 10*3/uL (4.8-10.8)
[2018-05-06 11:54] LABS: ALBUMIN 3.8 gm/dl (3.1-4.5); ALKALINE PHOSPHATASE 81 U/L (45-117); BILIRUBIN, DIRECT < 0.1 mg/dL (0.0-0.2); BUN 37 mg/dl (7-24); CHLORIDE 107 mmol/L (98-107); CHOLESTEROL 186 mg/dL (<200); CREATININE 1.11 mg/dL (0.55-1.02); HDL CHOLESTEROL 53 mg/dl (40-60); LDL CHOLESTEROL 101 mg/dL (9-159); POTASSIUM 3.9 mmol/L (3.5-5.1); SGOT/AST 10 IU/L (3-35); SGPT/ALT 20 U/L (12-78); SODIUM 146 mmol/L (136-145); TOTAL PROTEIN 7.8 gm/dL (6.4-8.2); TRIGLYCERIDES 160 mg/dl (<150); VLDL CHOLESTEROL 32 mg/dL (6-40)
== END | disposition home or self-care (01) ==
LOC: LAB 11:02
PROVIDERS: Specialist
DX: I50.32 Chronic diastolic (congestive) heart failure (principal); I48.2 Chronic atrial fibrillation; E11.8 Type 2 diabetes mellitus with unspecified complications

== ENCOUNTER → 2018-06-10 | Outpatient (CLI) | payer MEDICARE, OTHER ==
[2018-06-10 09:41] LABS: BASO % 0.5 % (0.0-1.0); EOS # 0.4 10*3/uL (0.0-0.4); EOS % 4.1 % (1.0-4.0); HEMATOCRIT 39.8 % (37.0-47.0); HEMOGLOBIN 12.9 g/dl (12.0-16.0); LYMPH # 2.5 10*3/uL (1.3-4.4); LYMPH % 28.8 % (27.0-41.0); MEAN CELL VOLUME 90.7 fl (81.0-99.0); MEAN CORPUSCULAR HGB 29.4 pg (27.0-31.0); MEAN CORPUSCULAR HGB CONC 32.4 g/dl (33.0-37.0); MEAN PLATELET VOLUME 10.2 fl (9.6-12.3); MONO # 0.6 10*3/uL (0.1-1.0); MONO % 7.3 % (3.0-9.0); NEUT # 5.2 10*3/uL (2.3-7.9); PLATELET COUNT AUTOMATED 207 10*3/uL (130-400); RED BLOOD COUNT 4.39 10*6/uL (4.10-5.10); RED CELL DISTRI WIDTH 13.7 % (0-14.5); WHITE BLOOD COUNT 8.8 10*3/uL (4.8-10.8)
[2018-06-10 10:11] LABS: ALBUMIN 3.9 gm/dl (3.1-4.5); ALKALINE PHOSPHATASE 85 U/L (45-117); BILIRUBIN, DIRECT < 0.1 mg/dL (0.0-0.2); BUN 29 mg/dl (7-24); CHLORIDE 101 mmol/L (98-107); CHOLESTEROL 183 mg/dL (<200); CREATININE 1.27 mg/dL (0.55-1.02); HDL CHOLESTEROL 48 mg/dl (40-60); LDL CHOLESTEROL 78 mg/dL (9-159); POTASSIUM 4.2 mmol/L (3.5-5.1); SGOT/AST 16 IU/L (3-35); SGPT/ALT 22 U/L (12-78); SODIUM 143 mmol/L (136-145); TOTAL PROTEIN 7.8 gm/dL (6.4-8.2); TRIGLYCERIDES 287 mg/dl (<150); VLDL CHOLESTEROL 57 mg/dL (6-40)
== END | disposition home or self-care (01) ==
LOC: LAB 09:08
PROVIDERS: Specialist
DX: I48.2 Chronic atrial fibrillation (principal); I50.32 Chronic diastolic (congestive) heart failure; E11.8 Type 2 diabetes mellitus with unspecified complications

== ENCOUNTER → 2018-08-12 | Outpatient (CLI) | payer MEDICARE, OTHER ==
[~2018-08-12] MED LIST changes: +ALDACTONE25 MG PO; -ZESTRIL10 MG PO; +ZESTRIL5 MG PO
[2018-08-12 09:57] LABS: CREATININE 1.11 mg/dL (0.55-1.02); POTASSIUM 3.9 mmol/L (3.5-5.1)
== END | disposition home or self-care (01) ==
LOC: LAB 09:04
PROVIDERS: Specialist
DX: I48.2 Chronic atrial fibrillation (principal); I50.32 Chronic diastolic (congestive) heart failure; E11.8 Type 2 diabetes mellitus with unspecified complications

== ENCOUNTER → 2018-08-27 | Outpatient (CLI) | payer MEDICARE, OTHER | END | disposition home or self-care (01) | LOC: RAD 10:34 | DX: M47.896 Other spondylosis, lumbar region (principal); M54.41 Lumbago with sciatica, right side; E11.9 Type 2 diabetes mellitus without complications; I10 Essential (primary) hypertension; R20.0 Anesthesia of skin ==

== ENCOUNTER → 2018-09-08 | Outpatient (CLI) | payer MEDICARE, OTHER ==
[2018-09-08 09:22] LABS: BUN 29 mg/dl (7-24); CHLORIDE 99 mmol/L (98-107); CREATININE 1.07 mg/dL (0.55-1.02); POTASSIUM 3.7 mmol/L (3.5-5.1); SODIUM 142 mmol/L (136-145)
== END | disposition home or self-care (01) ==
LOC: LAB 08:40
PROVIDERS: Specialist
DX: I48.91 Unspecified atrial fibrillation (principal); I44.2 Atrioventricular block, complete; I50.32 Chronic diastolic (congestive) heart failure; R06.00 Dyspnea, unspecified; R53.83 Other fatigue

== ENCOUNTER → 2018-09-15 | Outpatient (CLI) | payer MEDICARE, OTHER ==
[2018-09-15 10:46] LABS: BUN 26 mg/dl (7-24); CHLORIDE 103 mmol/L (98-107); CREATININE 1.07 mg/dL (0.55-1.02); POTASSIUM 3.8 mmol/L (3.5-5.1); SODIUM 143 mmol/L (136-145)
== END | disposition home or self-care (01) ==
LOC: LAB 09:14
PROVIDERS: Specialist
DX: I48.91 Unspecified atrial fibrillation (principal); I44.2 Atrioventricular block, complete; I50.32 Chronic diastolic (congestive) heart failure; R06.00 Dyspnea, unspecified; R53.83 Other fatigue

== ENCOUNTER 2018-09-22 19:17 | Inpatient (IN) | payer MEDICARE, OTHER ==
[~2018-09-22] VITALS: Ht 157.4 cm; Wt 78.1 kg
--- NOTE | ~2018-09-22 | EKG ---
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
[~2018-09-22 19:17] MED LIST changes: -ALDACTONE25 MG PO
[2018-09-22 19:19] VITALS: BP 136/62
[2018-09-22 20:05] LABS: BASO % 0.2 % (0.0-1.0); EOS # 0.3 10*3/uL (0.0-0.4); EOS % 3.3 % (1.0-4.0); HEMATOCRIT 33.2 % (37.0-47.0); HEMOGLOBIN 11.3 g/dl (12.0-16.0); LYMPH # 2.5 10*3/uL (1.3-4.4); LYMPH % 30.5 % (27.0-41.0); MEAN CELL VOLUME 89.5 fl (81.0-99.0); MEAN CORPUSCULAR HGB 30.5 pg (27.0-31.0); MEAN PLATELET VOLUME 10.4 fl (9.6-12.3); MONO # 0.7 10*3/uL (0.1-1.0); MONO % 8.1 % (3.0-9.0); NEUT # 4.8 10*3/uL (2.3-7.9); NEUT % 57.7 % (47.0-73.0); PLATELET COUNT AUTOMATED 170 10*3/uL (130-400); RED BLOOD COUNT 3.71 10*6/uL (4.10-5.10); RED CELL DISTRI WIDTH 13.2 % (0-14.5); WHITE BLOOD COUNT 8.3 10*3/uL (4.8-10.8)
[2018-09-22 20:14] LABS: INTERNATIONAL NORM RATIO 1.1 (2.0-3.5)
[2018-09-22 20:22] LABS: ALBUMIN 3.5 gm/dl (3.1-4.5); ALKALINE PHOSPHATASE 103 U/L (45-117); BUN 29 mg/dl (7-24); CHLORIDE 103 mmol/L (98-107); CREATININE 1.39 mg/dL (0.55-1.02); POTASSIUM 3.3 mmol/L (3.5-5.1); SGOT/AST 25 IU/L (3-35); SGPT/ALT 27 U/L (12-78); SODIUM 143 mmol/L (136-145); TOTAL PROTEIN 7.3 gm/dL (6.4-8.2)
[2018-09-22 20:30] LABS: TROPONIN I < 0.015 ng/ml (<0.045)
[2018-09-22 20:52] VITALS: BP 133/43
[2018-09-22 21:17] LABS: BILIRUBIN NEGATIVE (NEGATIVE); BLOOD 1+ (NEGATIVE); CLARITY SL CLOUDY (CLEAR); COLOR YELLOW (YELLOW); GLUCOSE NEGATIVE (NEGATIVE); KETONE NEGATIVE (NEGATIVE); LEUKO ESTERASE 3+ (NEGATIVE); NITRITE NEGATIVE (NEGATIVE); UROBILINOGEN 0.2 E.U./dl (0.2-1.0)
[2018-09-22 21:42] LABS: BACTERIA 1+; WBC TNTC wbc/hpf (0-5); YEAST TRACE
[2018-09-22 22:35] VITALS: BP 138/59
[2018-09-22 23:17] VITALS: BP 138/59
[2018-09-22] MEDS ORDERED: FUROSEMIDE40 MG PO (23:18)
[2018-09-23 06:28] LABS: BASO % 0.3 % (0.0-1.0); EOS # 0.3 10*3/uL (0.0-0.4); EOS % 3.1 % (1.0-4.0); HEMATOCRIT 33.4 % (37.0-47.0); HEMOGLOBIN 11.1 g/dl (12.0-16.0); LYMPH # 1.9 10*3/uL (1.3-4.4); MEAN CORPUSCULAR HGB 30.2 pg (27.0-31.0); MEAN CORPUSCULAR HGB CONC 33.2 g/dl (33.0-37.0); MEAN PLATELET VOLUME 10.5 fl (9.6-12.3); MONO # 0.6 10*3/uL (0.1-1.0); MONO % 7.5 % (3.0-9.0); NEUT # 5.2 10*3/uL (2.3-7.9); PLATELET COUNT AUTOMATED 150 10*3/uL (130-400); RED BLOOD COUNT 3.67 10*6/uL (4.10-5.10); RED CELL DISTRI WIDTH 13.3 % (0-14.5)
[2018-09-23 07:04] LABS: BUN 26 mg/dl (7-24); CHLORIDE 103 mmol/L (98-107); CHOLESTEROL 139 mg/dL (<200); CREATININE 1.05 mg/dL (0.55-1.02); PHOSPHOROUS 2.8 mg/dL (2.5-4.9); POTASSIUM 3.5 mmol/L (3.5-5.1); SODIUM 141 mmol/L (136-145); TRIGLYCERIDES 204 mg/dl (<150); VLDL CHOLESTEROL 41 mg/dL (6-40)
[2018-09-23 07:14] LABS: FREE T4 1.02 ng/dl (0.76-1.46); HDL CHOLESTEROL 42 mg/dl (40-60); LDL CHOLESTEROL 56 mg/dL (9-159)
[2018-09-23 07:50] LABS: VITAMIN D, 25-HYDROXY 27.1 ng/mL (30-100)
[2018-09-23 08:00] VITALS: BP 148/56
[2018-09-23 12:00] VITALS: BP 165/58
[2018-09-23 16:00] VITALS: BP 102/62; BP 143/60
[2018-09-23 20:00] VITALS: BP 121/87
[2018-09-24] VITALS: BP 116/59
[2018-09-24 07:52] LABS: BASO % 0.4 % (0.0-1.0); EOS # 0.3 10*3/uL (0.0-0.4); EOS % 3.2 % (1.0-4.0); HEMATOCRIT 33.6 % (37.0-47.0); HEMOGLOBIN 11.2 g/dl (12.0-16.0); LYMPH % 25.6 % (27.0-41.0); MEAN CELL VOLUME 89.4 fl (81.0-99.0); MEAN CORPUSCULAR HGB 29.8 pg (27.0-31.0); MEAN CORPUSCULAR HGB CONC 33.3 g/dl (33.0-37.0); MEAN PLATELET VOLUME 10.6 fl (9.6-12.3); MONO # 0.6 10*3/uL (0.1-1.0); NEUT # 4.9 10*3/uL (2.3-7.9); NEUT % 62.4 % (47.0-73.0); PLATELET COUNT AUTOMATED 163 10*3/uL (130-400); RED BLOOD COUNT 3.76 10*6/uL (4.10-5.10); RED CELL DISTRI WIDTH 13.2 % (0-14.5); WHITE BLOOD COUNT 7.9 10*3/uL (4.8-10.8)
[2018-09-24 08:00] VITALS: BP 136/60
[2018-09-24 08:00] LABS: BUN 26 mg/dl (7-24); CHLORIDE 102 mmol/L (98-107); CREATININE 0.94 mg/dL (0.55-1.02); SODIUM 140 mmol/L (136-145)
[2018-09-24 08:01] LABS: POTASSIUM 3.5 mmol/L (3.5-5.1)
[2018-09-24 12:00] VITALS: BP 130/84
[2018-09-24] MEDS ORDERED: ALDACTONE25 MG PO (14:21)
== END 2018-09-24 15:55 | disposition home or self-care (01) | DRG 291 ==
LOC: ED 19:17 → 4E 22:14 → EDHOLD 22:14 → 4E 22:18
PROVIDERS: Emergency Medicine; Internal Medicine; Internal Medicine Nephrology
DX: I13.0 Hypertensive heart and chronic kidney disease with heart failure and stage 1 through stage 4 chronic kidney disease, or unspecified chronic kidney disease (principal); N17.0 Acute kidney failure with tubular necrosis; I50.33 Acute on chronic diastolic (congestive) heart failure; N39.0 Urinary tract infection, site not specified; E87.6 Hypokalemia; E78.1 Pure hyperglyceridemia; E11.65 Type 2 diabetes mellitus with hyperglycemia; K21.9 Gastro-esophageal reflux disease without esophagitis; E78.5 Hyperlipidemia, unspecified; N18.3 Chronic kidney disease, stage 3 (moderate); G89.29 Other chronic pain; M43.16 Spondylolisthesis, lumbar region; I25.10 Atherosclerotic heart disease of native coronary artery without angina pectoris; I08.1 Rheumatic disorders of both mitral and tricuspid valves; I27.20 Pulmonary hypertension, unspecified; E55.9 Vitamin D deficiency, unspecified; B37.3 Candidiasis of vulva and vagina; E11.22 Type 2 diabetes mellitus with diabetic chronic kidney disease; E66.9 Obesity, unspecified; I48.0 Paroxysmal atrial fibrillation; Z95.0 Presence of cardiac pacemaker; I25.2 Old myocardial infarction; Z87.442 Personal history of urinary calculi; Z91.81 History of falling; Z79.82 Long term (current) use of aspirin; Z87.440 Personal history of urinary (tract) infections; Z98.49 Cataract extraction status, unspecified eye; Z82.49 Family history of ischemic heart disease and other diseases of the circulatory system; Z81.2 Family history of tobacco abuse and dependence; Z80.9 Family history of malignant neoplasm, unspecified; Z79.899 Other long term (current) drug therapy; Z68.32 Body mass index [BMI] 32.0-32.9, adult

== ENCOUNTER 2019-05-29 15:56 | Inpatient (IN) | payer MEDICARE, OTHER ==
[~2019-05-29] VITALS: Ht 157.5 cm; Wt 83.5 kg
--- NOTE | ~2019-05-29 | PR ---
[place], [place] PROGRESS NOTE NAME[id number] #: [id number] ROOM: 404 DOCTOR: SOFIA RICHTER MD,BROCK BIRTHDATE: [birth year] DOS: 06/01/2019 PULMONARY PROGRESS NOTE SUBJECTIVE: The patient noted comfortable at this time, resting on the bed, has been started corticosteroids yesterday, stating reduction in respiratory symptoms, but the symptoms reported to me were not very clear. Denies symptoms of fever or chills, coughing or any hemoptysis. OBJECTIVE: VITAL SIGNS: Normal temperature, respiratory rate 18, heart rate 106, blood pressure 124/54-130/60. The pulse oxygen saturation on 2 liters nasal cannula 96% saturation recorded. HEENT: Examination shows head was atraumatic. Eyes nonicterus. NECK: Supple. CARDIOVASCULAR: S1, S2 is audible. LUNGS: Moderate decreased breath sounds in the lungs bilaterally. ABDOMEN: Soft, nontender. Bowel sounds present. EXTREMITIES: No new change. IMPRESSION: Stable respiratory status, acute exacerbation of bronchial asthma with congestive heart failure, severe muscle deconditioning with shortness of breath as well was suspected. PLAN OF MANAGEMENT: No changes in plan of care at this time. Continuation of current plan of management and corticosteroids. Bronchodilator therapy, plan of management and additional treatment changes with be done based on progression of illness. Supportive care, plan of management, care plan and treatment and therapies. Assessment possibility of pulmonary hypertension should be considered in help with Cardiology consultation. BROCK BLACK MD CM:PNTRANS [id number] BROCK RICHTER MD 06/01/19 1317 interface
--- NOTE | ~2019-05-29 | EKG ---
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: : 1940 Requested By: ALANNA JUAREZ Order Number: [id number] Reading MD: Sandy Moreau Measurements Intervals [place] Rate: 75 P: MO: QRS: 235 QRSD: 119 T: 94 QT: 413 QTc: 462 Interpretive Statements Sinus rhythm Mobitz I AV block Nonspecific intraventricular conduction delay Anterolateral infarct, age indeterminate Baseline wander in lead(s) I,II,aVR Compared to ECG 04/07/2019 18:02:18 Accelerated junctional rhythm now present Intraventricular conduction delay now present Myocardial infarct finding now present Ventricular-paced complex(es) or rhythm no longer present Electronically Signed On 05-31-2019 9:46:52 PDT by Sandy Moreau CM:EKGRPT:ELECTROCARDIOGRAM REPORT [id number] ALANNA MARLOW DRAFT REPORT ALANNA JUAREZ DO
--- NOTE | ~2019-05-29 | EKG ---
[place], [place] ELECTROCARDIOGRAM REPORT NAME: JULIANNE MCNAMARA UNIT #: [id number] ROOM: 404 DOCTOR: KIRK DRAFT REPORT BIRTHDATE: [birth year] [facility] Test Date: 2019-05-29 Test Time: 21:32:46 Pat Name: JULIANNE MCNAMARA Department: Room: 404 Gender: F Lens Assistant: CAROL : 1940 Requested By: ALANNA JUAREZ Order Number: [id number] Reading MD: Sandy Moreau Measurements Intervals [place] Rate: 71 P: 0 MT: 218 QRS: 255 QRSD: 120 T: 101 QT: 415 QTc: 451 Interpretive Statements Sinus rhythm Ventricular-paced rhythm Compared to ECG 04/07/2019 18:02:18 No significant changes Electronically Signed On 05-31-2019 9:47:53 PDT by Sandy Moreau CM:EKGRPT:ELECTROCARDIOGRAM REPORT [id number] ALANNA MARLOW DRAFT REPORT ALANNA JUAREZ DO
--- NOTE | ~2019-05-29 | CON ---
[place], [place] REPORT OF CONSULTATION NAME: [facility]NE [facility]NAMARA [id number] UNIT #: [id number] ROOM: 404 DOCTOR: BROCK CASTANO MD BIRTHDATE: [birth year] DOS: 05/31/2019 PULMONARY CONSULTATION AND EVALUATION REASON FOR CONSULTATION: Assess the patient's symptoms of shortness of breath. HISTORY OF PRESENT ILLNESS: A 78-year-old white female patient, who has been noted with previous hospitalization with history of heart failure with preserved ejection fraction. She has been admitted to the hospital. The patient has been noted progressively getting increasing shortness of breath according to the patient with walking about 15-20 feet on level surface. Shortness breath is relieved after resting some time. She denies symptoms of chest pain. There were no symptoms of hemoptysis stated by the patient. The patient denies any symptoms of wheezing. There were no symptoms of hematemesis or melena also stated. The patient has been followed by the [facility] Cardiology Service as well and receiving different medications for that and adjustment been made. She has been admitted to the hospital with current medical management. Still noted symptoms of shortness breath that occurs with walking a few feet on a level surface. There were no symptoms of chest pain reported by the patient. REVIEW OF SYSTEMS: CONSTITUTIONAL: Fatigue and tiredness noted. Denies symptoms of fever or chills. EYES: Denies any burning, redness, or tenderness. EARS, NOSE, THROAT SYMPTOMS: Denies sore throat, hoarseness, otalgia, postnasal drainage or epistaxis. CARDIOVASCULAR: Denies anginal pain, edema or pain of the lower extremities. GASTROINTESTINAL: Denies dysphagia, nausea, vomiting, diarrhea, abdominal pain, hematemesis, melena, or hematochezia. SKIN: Denies abnormal lesions or rashes. CENTRAL NERVOUS SYSTEM: Denies dizziness, headache, diplopia, or syncopal episode. Remaining systems were reviewed, they were noted all negative. PAST MEDICAL HISTORY: 1. Type 2 diabetes mellitus. 2. Uncomplicated moderate persistent bronchial asthma. 3. Essential hypertension. 4. Nephrolithiasis. 5. Permanent atrial fibrillation with a previous electrical cardioversion. 6. History of mild obesity. 7. Nephrolithiasis. 8. Congestive heart failure with preserved ejection fraction reported. 8. History of essential tremors. PAST SURGICAL HISTORY: 1. Several lithotripsies in the past. 2. Biopsy of the breast. 3. Therapeutic bronchoscopy. [place], [place] REPORT OF CONSULTATION NAME: JULIANNE MCNAMARA [facility] [id number] UNIT #: [id number] ROOM: [facility] DOCTOR: SOFIA RICHTER MD,BROCK BIRTHDATE: [birth year] SOCIAL HISTORY: The patient is , has 2 children, lives at home. Nonsmoker lifetime. No history of alcohol use or illicit drug use. FAMILY HISTORY: The patient's father at 53 from complication of rheumatic fever. Mother at the age of 51 from complication of aneurysm of the brain. MEDICATIONS: Listed from home as use of vitamin C, aspirin, vitamin D, Lasix 80 mg p.o. b.i.d., lisinopril, methenamine, metoprolol succinate, multivitamin, primidone, Xarelto, simvastatin, Januvia, Aldactone, and trospium. The current medications which have been administered on this hospitalization were noted as simvastatin, Aldactone, aspirin, Xarelto, metoprolol succinate, lisinopril, primidone, vitamin D, Lasix oral, Protonix, IV Rocephin, and some other medications. ALLERGIES: Noted as no known drug allergies. PHYSICAL EXAMINATION: GENERAL: This is a 78-year-old female patient who has been noted currently awake and alert without any distress. Height of 5 feet 2 inches, weight of 82 kilograms, BMI 33. VITAL SIGNS: Which have been recorded showed the temperature noted normal since admission, respiratory rate 16-18, heart rate 70-71, blood pressure 104/48 to 130/47. The pulse oxygen saturation recorded at rest on room air was 98% saturation, 80% recorded on admission. HEENT: Shows head was atraumatic, eyes nonicterus. NECK: Supple. CARDIOVASCULAR: S1 and S2 audible. LUNGS: The patient was noted with decreased breath sounds with basilar crackles. There was no wheezing. ABDOMEN: Soft, nontender. Bowel sounds present. EXTREMITIES: The patient was noted without any deformities. Mild edema of the bilateral lower extremity was noted. VISIBLE SKIN: No lesions or rashes. CENTRAL NERVOUS SYSTEM: Intact. LABORATORY DATA: Reviewed. The CBC that was done on 05/29/2019, WBC count 12.5, hemoglobin and hematocrit normal, platelet count normal, eosinophils of 1.4%. PT/PTT noted as normal. CMP on 05/29/2019, BUN 29, creatinine 1.12. Troponin was noted normal on that day. The lactic acid was 2.1 on 05/29/2019, lactic acid followup was 1.6. BMP this morning, the patient has BUN 33, creatinine 1.17, glucose 165. CBC, WBC count normal, hemoglobin 9.2, platelet count normal. The chest x-ray, one-view, which was done on this admission was reviewed, shows evidence of increased pulmonary venous congestion marking with finding of congestive heart failure. CT scan of the chest that was done in one of the previous admissions on 04/07/2019, parenchymal view was noted, evidence of chronic calcification in the lungs bilaterally as well. This would be considered a small airway disease. There were no pleural effusions at that time or other abnormalities. [place], [place] REPORT OF CONSULTATION NAME: JULIANNE MCNAMARA UNIT #: [id number] ROOM: 404 DOCTOR: CELINE CASTANO MDM BIRTHDATE: [birth year] IMPRESSION: 1. The patient has been currently admitted to the hospital, noted with significant shortness of breath, most likely combination from acute congestive heart failure with preserved ejection fraction and combination from bronchial asthma would be considered as well. 2. Exertional hypoxia. 3. Rule out pulmonary hypertension as well. There is no past history of tobacco use. 4. History of essential tremor, history of nephrolithiasis, and other problems with mild azotemia related to diuretics. PLAN OF MANAGEMENT: The patient will be ordered a trial of the corticosteroids at this time. She will be assessed walking to assess for the possibility of hypoxia. Cardiology consultation with pending echocardiogram as well. Other additional treatment changes will be made based on progression of the illness. Supportive care. She is not receiving any regular bronchodilators or medications at the present time during this hospitalization. Pulmicort Respules will be started. She has not been seen in my office for regular visit as well. To further assess the pulmonary disease as well and make any changes in the management as well. The assessment and management have been discussed with the patient's son and the patient in detail at the bedside. Thanks for allowing me to participate in the care of this patient. BROCK BLACK MD CM:CONSTR:REPORT OF CONSULTATION 1125 06/01/19 0135 interface
--- NOTE | ~2019-05-29 | PR ---
[place], [place] PROGRESS NOTE NAME: JULIANNE MCNAMARA UNIT #: [id number] ROOM: 404 DOCTOR: GERMAN BEAVERS MD BIRTHDATE: [birth year] DOS: 06/02/2019 CARDIOLOGY PROGRESS NOTE REASON FOR VISIT: CHF. SUBJECTIVE: The patient is feeling better. Breathing is much improved. No PND, no orthopnea. Still gets short of breath on activity. No palpitation, no dizziness. No nausea or vomiting. No chest pains. No fever and chills. No cough. She is anticipating discharge today to rehabilitation. REVIEW OF SYSTEMS: Review of 8 systems negative except as mentioned above. PHYSICAL EXAMINATION: VITAL SIGNS: Blood pressure 120/70, pulse 70, respiratory rate 20, weight 83.4 kilos. GENERAL: Alert, comfortable, in no acute distress. NECK: Supple. No distended neck veins. No carotid bruit. CHEST: Symmetrical, nontender. LUNGS: Few scattered rhonchi, but good air entry bilaterally. HEART: Regular rate and rhythm, no S3. Grade 1/6 systolic murmur. ABDOMEN: Obese, nontender. EXTREMITIES: Showed trace edema. Distal pulse was palpable. SKIN: Warm and dry. No cyanosis, no clubbing. RECTAL: Deferred. GENITOURINARY: Deferred. NEUROLOGIC: The patient is alert with no focal neurologic deficit. LABORATORY DATA AND MEDICATIONS: Reviewed. IMPRESSION: 1. Acute on chronic heart failure with preserved ejection fraction, now ejection fraction is normal at 55%. 2. Morbid obesity. 3. Chronic obstructive pulmonary disease. 4. Paroxysmal atrial fibrillation. 5. Status post pacemaker. 6. Hypertension. RECOMMENDATIONS: 1. Continue current medication. 2. Wean off oxygen as she can tolerate. 3. She can be discharged to either home or rehab from the cardiac standpoint. 4. She is to follow up with Dr. Sevilla, her screwhead stoner and polisher in [place]. 5. Above recommendation was discussed with the patient and her family members who are at bedside and all questions were answered. [place], [place] PROGRESS NOTE NAME: JULIANNE MCNAMARA UNIT #: [id number] ROOM: 404 DOCTOR: GERMAN BEAVERS MD BIRTHDATE: [birth year] GERMAN BEAVERS MD CM:FINN [phone] GERMAN BEAVERS MD 06/03/19 0007 interface
--- NOTE | ~2019-05-29 | PR ---
[place], [place] PROGRESS NOTE NAME: JULIANNE MCNAMARA [facility] #: [id number] UNIT #: [id number] ROOM: 404 DOCTOR: BROCK CASTANO MD BIRTHDATE: [birth year] DOS: 06/02/2019 SUBJECTIVE: She was noted with shortness breath noted with only minimal exertion. She has been assessed, the patient cannot ambulate without getting significant shortness of breath. There was no significant hypoxia reported. The patient does not have any coughing or wheezing. There were symptoms of pain or edema of the lower extremities. OBJECTIVE: VITAL SIGNS: This morning, normal temperature, respiratory rate 20, heart rate 70, blood pressure 120/76, pulse ox saturation on 2 liters nasal cannula 94% saturation. HEENT: Examination shows head was atraumatic. Eyes nonicterus. NECK: Supple. CARDIOVASCULAR: S1, S2 audible. LUNGS: The patient was noted without any wheeze or crackles at the present time. ABDOMEN: Soft and nontender. Bowel sounds present. EXTREMITIES: Without acute edema. LABORATORY DATA: The echocardiogram that was completed yesterday, noted evidence of moderate pulmonary hypertension with preserved left ventricular ejection fraction. IMPRESSION: 1. The patient with severe shortness of breath secondary to the congestive heart failure and possibility of additional shortness of breath, resulting from the pulmonary hypertension. 2. History of bronchial asthma. PLAN OF TREATMENT: Discontinue Solu-Medrol at the present time. The patient was planned for transfer to another facility for the medical management of the congestive heart failure and pulmonary hypertension. In the meantime, no other changes or new treatment changes need to be done. [place], [place] PROGRESS NOTE NAME: JULIANNE MCNAMARA [facility] #: [id number] UNIT #: [id number] ROOM: 404 DOCTOR: BROCK CASTANO MD BIRTHDATE: [birth year] BROCK BLACK MD CM:PNTRANS [phone] BROCK RICHTER MD 06/10/19 0853 interface
--- NOTE | ~2019-05-29 | EKG ---
[place], [place] ELECTROCARDIOGRAM REPORT NAME: JULIANNE MCNAMARA UNIT #: [id number] ROOM: 404 DOCTOR: KIRK DRAFT REPORT BIRTHDATE: [birth year] [facility] Test Date: 2019-05-29 Test Time: 19:01:03 Pat Name: JULIANNE MCNAMARA Department: Room: 404 Gender: F Greige Goods Inspector: Maria E Wang : 1940 Requested By: ALANNA JUAREZ Order Number: [id number] Reading MD: Sandy Moreau Measurements Intervals [place] Rate: 70 P: 0 VA: 232 QRS: 251 QRSD: 120 T: 97 QT: 409 QTc: 442 Interpretive Statements Ventricular-paced complexes No further analysis attempted due to paced rhythm Baseline wander in lead(s) I,III,aVL Compared to ECG 04/07/2019 18:02:18 No significant changes Electronically Signed On 05-31-2019 9:47:13 PDT by Sandy Moreau CM:EKGRPT:ELECTROCARDIOGRAM REPORT [id number] ALANNA MARLOW DRAFT REPORT ALANNA JUAREZ DO
--- NOTE | ~2019-05-29 | PR ---
[place], [place] PROGRESS NOTE NAME: JULIANNE MCNAMARA UNIT #: [id number] ROOM: 404 DOCTOR: RUTHANN ESTRADA,GERMAN BIRTHDATE: [birth year] DOS: 05/31/2019 CARDIOLOGY FOLLOWUP NOTE REASON FOR VISIT: CHF. SUBJECTIVE: The patient is feeling better, less short of breath. Edema is mostly resolved. Denies any PND or orthopnea. No chest pain, no palpitations or dizziness. No nausea or vomiting. REVIEW OF SYSTEMS: Review of 10 systems negative, except as mentioned above. PHYSICAL EXAMINATION: VITAL SIGNS: Blood pressure 104/48, pulse 70, respiratory rate 20. Weight 85.2 kilos. RHYTHM STRIPS: The patient was in sinus rhythm with occasional ventricular pacing. GENERAL: Alert, comfortable, in no acute distress. HEAD AND NECK: Pupils are round and equal. No jaundice. Tongue was moist and pharynx clear. NECK: Supple, no distended neck veins, no carotid bruit. CHEST: Symmetrical, nontender. LUNGS: A few rhonchi and minimal rales at the right base. HEART: Mostly regular. No S3. Grade 1/6 systolic murmur. ABDOMEN: Obese, nontender. Bowel sounds normal. EXTREMITIES: Showed trace edema. Distal pulses palpable. SKIN: Warm and dry. No cyanosis, no clubbing. RECTAL: Deferred. GENITOURINARY: Deferred. NEUROLOGIC: The patient is alert with no focal neurologic deficit. PSYCHIATRIC: The patient is alert with good mood and affect. LABORATORY DATA AND MEDICATIONS: Reviewed. IMPRESSION: 1. Acute on chronic heart failure with preserved ejection fraction, ejection fraction 50% in 2018. 2. Valvular heart disease. 3. Paroxysmal atrial fibrillation. 4. Status post pacemaker. 5. Recurrent urinary tract infections. 6. Mild hypoxemia with acute respiratory failure, improving. RECOMMENDATIONS: 1. Continue current medications. 2. Wean off her nasal oxygen. 3. A 2D echo is ordered for tomorrow. 4. Tentative discharge in 24-48 hours. 5. The patient again advised to increase her activity at home to improve her endurance and stamina. [place], [place] PROGRESS NOTE NAME: JULIANNE MCNAMARA UNIT #: [id number] ROOM: 404 DOCTOR: RUTHANN ESTRADA,GERMAN BIRTHDATE: [birth year] 6. Her dyspnea on exertion is multifactorial including diastolic heart failure, atrial fibrillation, obesity as well as some deconditioning. Above recommendation was discussed with the patient and her family members, several sisters at bedside, and all questions were answered. GERMAN BEAVERS MD CM:FINN [phone] GERMAN BEAVERS MD 06/01/19 1716 interface
--- NOTE | ~2019-05-29 | PR ---
[place], [place] PROGRESS NOTE NAME: JULIANNE MCNAMARA UNIT #: [id number] ROOM: 404 DOCTOR: GERMAN BEAVERS MD BIRTHDATE: [birth year] DOS: 06/01/2019 REASON FOR VISIT: CHF and pulmonary hypertension. HISTORY OF PRESENT ILLNESS: The patient is feeling better. Edema has significantly improved. Denies any PND or orthopnea. No fever or chills. No chest pain or palpitations. No nausea, vomiting, or diarrhea. No bladder or bowel symptoms, no neurologic symptoms. No musculoskeletal symptoms. REVIEW OF SYSTEMS: Review of 10 system negative except as mentioned above. PHYSICAL EXAMINATION: VITAL SIGNS: Reviewed. RHYTHM STRIPS: The patient is in a ventricular pacing. GENERAL: Alert and oriented, in no acute distress. HEENT: Pupils are round and equal. No jaundice. Tongue was moist and pharynx clear. NECK: Supple, no distended neck veins, no carotid bruit. CHEST: Symmetrical, nontender. LUNGS: A few scattered rhonchi, diminished at the bases. HEART: Regular, no S3 and grade 1/6 systolic murmur. ABDOMEN: Benign, nontender, obese. EXTREMITIES: Showed trace edema. Distal pulses palpable. SKIN: Warm and dry. No cyanosis, no clubbing. RECTAL: Deferred. GENITOURINARY: Deferred. NEUROLOGIC: The patient is alert and oriented. No focal neurologic deficits. MUSCULOSKELETAL: No joint tenderness. MEDICATIONS AND LABORATORY DATA: Reviewed. IMPRESSION: 1. Acute on chronic heart failure with preserved ejection fraction. 2. Pulmonary hypertension. 3. Paroxysmal atrial fibrillation. 4. Status post pacemaker. 5. Chronic obstructive pulmonary disease exacerbation. 6. Urinary tract infection. 7. Non-morbid obesity. 8. Deconditioning. RECOMMENDATIONS: 1. Continue current medication. 2. Check 2D echo for LV function and valvular function. 3. Possible discharge in the next 24 hours. 4. She will follow up with Dr. Sevilla, her raw stock machine feeder after discharge. 5. No family at bedside at the time of my examination. [place], [place] PROGRESS NOTE NAME: JULIANNE MCNAMARA UNIT #: [id number] ROOM: 404 DOCTOR: RUTHANN ESTRADA,GERMAN BIRTHDATE: [birth year] GERMAN BEAVERS MD CM:JEFFERYTRANS [phone] GERMAN BEAVERS MD 06/02/19 0109 interface
--- NOTE | ~2019-05-29 | CON ---
[place], [place] REPORT OF CONSULTATION NAME: JULIANNE MCNAMARA UNIT #: [id number] ROOM: 404 DOCTOR: GERMAN BEAVERS MD BIRTHDATE: [birth year] DOS: 05/30/2019 CARDIOLOGY CONSULTATION REASON FOR CONSULT: Congestive heart failure. HISTORY OF PRESENT ILLNESS: This is a 78-year-old patient with history of paroxysmal atrial fibrillation, valvular heart disease, pulmonary hypertension, pacemaker, was presented for progressive shortness of breath for the past 2 days. She had a history of mild LV dysfunction with EF of 50% by echo in 11/2017. Also, she has a stage 3 diastolic dysfunction. She follows with Dr. Sevilla, crm solution architect at [facility]. Her home medications include Lasix, lisinopril, and Aldactone. I discussed with her family. Per her family, the patient is very sedative at home. She does not do any activities, is mostly bedridden and this is partly because of her short of breath and weakness on activity, which has been progressively getting worse. There is no PND, no orthopnea. No nausea, vomiting, diarrhea. She had recurrent urinary tract infections. No chest pains. No dizziness or syncope. The Cardiology consulted for her [id number] heart failure. The patient is compliant with her medications and diet. REVIEW OF SYSTEMS: Review of 10 systems negative except as mentioned above. PAST MEDICAL HISTORY: 1. Paroxysmal atrial fibrillation. 2. Coronary artery disease. 3. Chronic diastolic heart failure. 4. Pacemaker. 5. Hypertension. 6. Acid reflux. 7. Dyslipidemia. 8. History of renal stones. 9. Diabetes type 2. 10. Non-morbid obesity. PAST SURGICAL HISTORY: History of pacemaker, history of right breast lumpectomy, history of cataract surgery. MEDICATIONS AND ALLERGIES: Reviewed. SOCIAL HISTORY: The patient does not smoke, does not use illicit drugs. Occasionally drinks alcohol. FAMILY HISTORY: Nil contributory due to her age. Father at the age of 52 from heart failure. Mother at 56 from intracranial bleed. ALLERGIES: No known drug allergies. PHYSICAL EXAMINATION: VITAL SIGNS: Blood pressure 130/47, pulse 70, respiratory rate 17, weight 81.6 [place], [place] REPORT OF CONSULTATION NAME: JULIANNE MCNAMARA UNIT #: [id number] ROOM: [facility] DOCTOR: RUTHANN ESTRADAGERMAN BIRTHDATE: [birth year] kg, BMI 35. GENERAL: Alert, comfortable, in no acute distress. NECK: Supple, no distended neck veins, no carotid bruit. CHEST: Symmetric, nontender. LUNGS: The patient had a fine crepitus bilaterally, also fine rales, diminished at bases. HEART: Regular rhythm, no S3. Grade 1/6 systolic murmur. ABDOMEN: Obese, nontender. Bowel sounds normal. EXTREMITIES: Showed 1+ edema. Distal pulses palpable. SKIN: Warm and dry. No cyanosis, no clubbing. RECTAL: Deferred. GENITOURINARY: Deferred. NEUROLOGIC: The patient is alert with no focal neurologic deficit. REVIEW OF THE DIAGNOSTIC TESTS: EKG showed sinus rhythm with ventricular pacing. CBC, chemistry reviewed. Troponins are negative. BNP 2710. Echo from 11/2017 showed EF of 50%, diastolic dysfunction, mild mitral regurgitation, mild tricuspid regurgitation and mild pulmonary hypertension. IMPRESSION: 1. Echo done due to her CHF with preserved ejection fraction, EF 50% by 11/2017 echo. 2. Paroxysmal atrial fibrillation. 3. Valvular heart with mild mitral regurgitation and mild tricuspid regurgitation. 4. Mild pulmonary hypertension. 5. Exertional dyspnea. 6. Recurrent urinary tract infections. 7. Status post pacemaker implant. 8. Non-morbid obesity. RECOMMENDATIONS: 1. Continue her diuretics. 2. Continue her home cardiac medications to include Xarelto, beta blockers, RADHA inhibitors and Aldactone. 3. Try to wean off her oxygen by nasal cannula. 4. A 2D echo was ordered and this will be done on Saturday. 5. Long discussion with the patient and her family members regarding her symptoms. Her dyspnea on exertion is multifactorial including chronic diastolic heart failure, valvular heart disease, pulmonary hypertension, atrial fibrillation, obesity and also deconditioning. 6. The patient is advised for increasing her activity as tolerated and try to build up some stamina and endurance by increasing her activity as she tolerates. 7. Consider Pulmonary consult and CT of the chest, if the patient did not improve in the next 24-48 hours. 8. She will follow up with Dr. Sevilla after her discharge. [place], [place] REPORT OF CONSULTATION NAME: JULIANNE MCNAMARA UNIT #: [id number] ROOM: 404 DOCTOR: RUTHANN ESTRADA,GERMAN BIRTHDATE: [birth year] GERMAN BEAVERS MD CM:CONSTR:REPORT OF CONSULTATION 14 06/12/19 0743 interface
[~2019-05-29 15:56] MED LIST changes: +ALDACTONE25 MG PO; +TROSPIUM CHLORI60 M1 PO
[2019-05-29 17:11] LABS: BASO % 0.3 % (0.0-1.0); EOS # 0.2 10*3/uL (0.0-0.4); EOS % 1.4 % (1.0-4.0); HEMATOCRIT 39.9 % (37.0-47.0); HEMOGLOBIN 12.8 g/dl (12.0-16.0); LYMPH % 15.7 % (27.0-41.0); MEAN CELL VOLUME 94.3 fl (81.0-99.0); MEAN CORPUSCULAR HGB 30.3 pg (27.0-31.0); MEAN CORPUSCULAR HGB CONC 32.1 g/dl (33.0-37.0); MEAN PLATELET VOLUME 10.8 fl (9.6-12.3); MONO # 0.9 10*3/uL (0.1-1.0); MONO % 7.3 % (3.0-9.0); NEUT # 9.4 10*3/uL (2.3-7.9); PLATELET COUNT AUTOMATED 203 10*3/uL (130-400); RED BLOOD COUNT 4.23 10*6/uL (4.10-5.10); WHITE BLOOD COUNT 12.5 10*3/uL (4.8-10.8)
[2019-05-29 17:23] LABS: ACT PARTIAL THROMBO TIME 28.3 SECONDS (20.0-32.1); INTERNATIONAL NORM RATIO 0.9 (2.0-3.5)
[2019-05-29 17:28] LABS: ALBUMIN 3.6 gm/dl (3.1-4.5); ALKALINE PHOSPHATASE 82 U/L (45-117); BUN 29 mg/dl (7-24); CHLORIDE 103 mmol/L (98-107); CREATININE 1.12 mg/dL (0.55-1.02); POTASSIUM 4.2 mmol/L (3.5-5.1); SGOT/AST 19 IU/L (3-35); SGPT/ALT 26 U/L (12-78); SODIUM 141 mmol/L (136-145); TOTAL PROTEIN 7.6 gm/dL (6.4-8.2)
[2019-05-29 17:30] LABS: TROPONIN I < 0.015 ng/ml (<0.045)
--- NOTE | 2019-05-29 17:33 | NUR ---
LAB CALLED WITH CRITICAL LACTIC OF 2.1. DR JUAREZ NOTIFIED.
[2019-05-29 17:45] LABS: BILIRUBIN NEGATIVE (NEGATIVE); BLOOD 2+ (NEGATIVE); CLARITY SL CLOUDY (CLEAR); COLOR YELLOW (YELLOW); GLUCOSE NEGATIVE (NEGATIVE); KETONE NEGATIVE (NEGATIVE); LEUKO ESTERASE 3+ (NEGATIVE); NITRITE NEGATIVE (NEGATIVE); UROBILINOGEN 0.2 E.U./dl (0.2-1.0)
[2019-05-29 18:00] VITALS: BP 140/64
[2019-05-29 18:01] LABS: WBC TNTC wbc/hpf (0-5)
--- NOTE | 2019-05-29 18:50 | NUR ---
FAMILY WOULD LIKE PT TO GET EVAL FOR HOME 02. FAMILY STATES THAT SHE IS FINE WHEN SHE GETS TO GO HOME BUT WHEN SHES HOME AND MOVING AROUND SHE GETS SOB. FAMILY WOULD LIKE HER TO GET MONITORED WHILE AMBULATING.
--- NOTE | 2019-05-29 21:25 | NUR ---
CALL SON TO GO OVER MEDICATION LIST , [phone]
[2019-05-29 21:30] VITALS: BP 136/51
--- NOTE | 2019-05-29 21:43 | NUR ---
pt transferred from room 9 to 10 for the bathroom due to sob when ambulating.
--- NOTE | 2019-05-29 22:36 | NUR ---
PT RESTING IN BED WITH EYES CLOSED. NO FURTHER COMPLAINTS AT THIS TIME. CALL LIGHT WITHIN REACH.
[2019-05-29 22:37] VITALS: BP 132/52
[2019-05-30 00:01] VITALS: BP 119/67
--- NOTE | 2019-05-30 02:40 | NUR ---
PATIENT UP AND TO THE RESTROOM AT THIS TIME.. NO DISTRESS NOTED. PATIENT STATES SHE FEELS A LITTLE WEAK AT THIS TIME. PATIENT GIVEN WATER.. RN WILL CONT TO MONITOR.. SIDE RAILS UP X2. CONT BREAD PACKER AND PULSE OX IN PLACE.. CALL LIGHT WITHIN REACH.
--- NOTE | 2019-05-30 03:43 | NUR ---
PATIENT STATES SHE IS FEELING BETTER AND IS BACK TO LAYING IN BED AT THIS TIME.. RESP EASY AND NONLABORED. RN WILL CONT TO MONITOR. CALL LIGHT WITHIN REACH.
[2019-05-30 06:13] LABS: BUN 26 mg/dl (7-24); CHLORIDE 104 mmol/L (98-107); CREATININE 1.02 mg/dL (0.55-1.02); POTASSIUM 3.5 mmol/L (3.5-5.1); SODIUM 141 mmol/L (136-145)
[2019-05-30 06:23] LABS: BASO % 0.2 % (0.0-1.0); EOS # 0.1 10*3/uL (0.0-0.4); EOS % 0.9 % (1.0-4.0); HEMATOCRIT 34.5 % (37.0-47.0); HEMOGLOBIN 11.2 g/dl (12.0-16.0); LYMPH # 1.7 10*3/uL (1.3-4.4); LYMPH % 16.6 % (27.0-41.0); MEAN CORPUSCULAR HGB 30.9 pg (27.0-31.0); MEAN CORPUSCULAR HGB CONC 32.5 g/dl (33.0-37.0); MEAN PLATELET VOLUME 10.6 fl (9.6-12.3); MONO % 9.2 % (3.0-9.0); NEUT # 7.6 10*3/uL (2.3-7.9); NEUT % 72.7 % (47.0-73.0); PLATELET COUNT AUTOMATED 150 10*3/uL (130-400); RED BLOOD COUNT 3.63 10*6/uL (4.10-5.10); WHITE BLOOD COUNT 10.4 10*3/uL (4.8-10.8)
[2019-05-30 08:20] VITALS: BP 130/47
--- NOTE | 2019-05-30 11:36 | NUR ---
MEDICATED WITH ZOFRAN ORDERED FOR C/O NAUSEA.
--- NOTE | 2019-05-30 13:05 | NUR ---
A 78, admitted to 4E, under the services of SNEHAL Ferrera DO with a diagnosis of UTI, AC RESP FAILURE W/ HYPOXIA. Chief complaint is SHORTNESS OF BREATH. Patient arrived via stretcher from ER. Monitor applied. Initial assessment completed. Vital signs taken and recorded. SNEHAL FERRERA DO notified of admission to the unit. Orders received. See assessment for past medical history, medications and allergies. Patient and/or family oriented to unit. [address] VISITATION AND POLICIES REVIEWED. Clothing/patient valuable form completed. ALIX ORTIZ
[2019-05-30 13:25] VITALS: BP 107/50
[2019-05-30 16:00] VITALS: BP 113/55
--- NOTE | 2019-05-30 16:00 | NUR ---
DR BLACK NOTIFIED OF CONSULT.
[2019-05-30 20:30] VITALS: BP 100/54
--- NOTE | 2019-05-30 20:30 | NUR ---
PT RESTING IN BED, ALERT ORIENTED AND PLEASANT WITH NO COMPLAINTS VOICED. ASSESSMENT COMPLETE. BLOOD SUGAR OBTAINED. PT DENIES NEEDING ANYTHING AT THIS TIME. ALL SAFETY MEASURES IN PLACE. WILL COVER PT WITH 3 UNITS OF INSULIN PER S/S. CALL LIGHT IN REACH.
[2019-05-31 05:30] VITALS: BP 94/50
--- NOTE | 2019-05-31 05:48 | NUR ---
0600 DOSE OF 80 MG LASIX HELD PER PHYSICIAN ORDERS DUE TO A BP OF 94/50 MANUALLY. WILL CONTINUE TO MONITOR PT.
[2019-05-31 07:14] LABS: BASO % 0.2 % (0.0-1.0); EOS # 0.3 10*3/uL (0.0-0.4); EOS % 3.2 % (1.0-4.0); HEMATOCRIT 29.7 % (37.0-47.0); HEMOGLOBIN 9.9 g/dl (12.0-16.0); LYMPH # 2.4 10*3/uL (1.3-4.4); LYMPH % 26.1 % (27.0-41.0); MEAN CELL VOLUME 92.2 fl (81.0-99.0); MEAN CORPUSCULAR HGB 30.7 pg (27.0-31.0); MEAN CORPUSCULAR HGB CONC 33.3 g/dl (33.0-37.0); MEAN PLATELET VOLUME 11.3 fl (9.6-12.3); MONO % 10.6 % (3.0-9.0); NEUT # 5.4 10*3/uL (2.3-7.9); NEUT % 59.6 % (47.0-73.0); PLATELET COUNT AUTOMATED 146 10*3/uL (130-400); RED BLOOD COUNT 3.22 10*6/uL (4.10-5.10); RED CELL DISTRI WIDTH 13.9 % (0-14.5)
[2019-05-31 07:31] LABS: CREATININE 1.17 mg/dL (0.55-1.02); POTASSIUM 3.8 mmol/L (3.5-5.1)
[2019-05-31 08:00] VITALS: BP 104/48
--- NOTE | 2019-05-31 08:01 | NUR ---
NOTIFIED REGARDING AM BP 104/48. PT ASYMPTOMATIC. NEW ORDERS RECEIVED.
--- NOTE | 2019-05-31 09:31 | NUR ---
IN TO SEE PATIENT.
--- NOTE | 2019-05-31 09:52 | NUR ---
WALKED PATIENT TO NURSES STATION PER . PULSE OX REMAINED 98% VIA RA ON THE WAY THERE. ON THE WAY BACK, PULSE OX DROPPED TO 90%. PATIENT VERY SOB AND HAD TO TAKE A BREAK. PT REPOSITIONED IN BED. 02 APPLIED. PULSE OX 98-100% VIA 3LNC. 02 TITRATED DOWN TO 2LNC. PULSE REMAINED 96-98%. RESPIRATORY IN TO SEE PATIENT. 02 CHECKED ON RA WHILE PATIENT WAS AT REST. PULSE OX DECREASED TO 90-91% ON RA. 02 APPLIED VIA 2LNC. WILL CONTINUE TO MONITOR. SON AT BEDSIDE.
--- NOTE | 2019-05-31 10:30 | NUR ---
PHYSICAL THERAPY PT EVAL COMPLETED TODAY ON LEVEL 4: FULL EVALUATION TO FOLLOW. RECOMMEND PT WHILE HERE TO ADDRESS DECREASED STRENGTH, ENDURANCE AND BALANCE WELL FUNCTIONAL MOBILITY. PT KOMALAL IS MDOERATE COMPLEXITY: [id number]. D/C REC: WOULD ADVISE HOME WITH HH AND FAMILY SUPPORT BASED ON EVALUATION TODAY. THANK YOU FOR REFERRAL MAGEN DIOR PT
[2019-05-31 12:00] VITALS: BP 108/84
[2019-05-31 16:00] VITALS: BP 121/50
[2019-05-31 20:00] VITALS: BP 112/53
--- NOTE | 2019-05-31 20:03 | NUR ---
24 HR chart check completed.
[2019-06-01] VITALS (7 sets, daily range): BP systolic 120–155; BP diastolic 50–67
[2019-06-01 07:23] LABS: BASO % 0.3 % (0.0-1.0); EOS # 0.1 10*3/uL (0.0-0.4); EOS % 0.8 % (1.0-4.0); HEMATOCRIT 30.8 % (37.0-47.0); HEMOGLOBIN 10.2 g/dl (12.0-16.0); LYMPH # 1.6 10*3/uL (1.3-4.4); LYMPH % 20.9 % (27.0-41.0); MEAN CELL VOLUME 92.8 fl (81.0-99.0); MEAN CORPUSCULAR HGB 30.7 pg (27.0-31.0); MEAN CORPUSCULAR HGB CONC 33.1 g/dl (33.0-37.0); MEAN PLATELET VOLUME 11.8 fl (9.6-12.3); MONO # 0.5 10*3/uL (0.1-1.0); MONO % 6.8 % (3.0-9.0); NEUT # 5.5 10*3/uL (2.3-7.9); NEUT % 70.7 % (47.0-73.0); PLATELET COUNT AUTOMATED 147 10*3/uL (130-400); RED BLOOD COUNT 3.32 10*6/uL (4.10-5.10); RED CELL DISTRI WIDTH 13.6 % (0-14.5); WHITE BLOOD COUNT 7.8 10*3/uL (4.8-10.8)
[2019-06-01 07:30] LABS: CREATININE 1.12 mg/dL (0.55-1.02); POTASSIUM 4.7 mmol/L (3.5-5.1)
--- NOTE | 2019-06-01 09:00 | NUR ---
Nutritional Assistant in to talk to patient. Patient states lives at home with son. There are few steps in the home. Physician: byron lua Pharmacy: [facility] services: none Patient's level of ADLs: BEDFAST Patient has working utilities: all working DME: none Follow-up physician's appointment after d/c: will be made by hospitalist nurse director upon discharge Does patient want to access PORTAL?: no Discharge plan discussed with patient, patient lives at home with son, she is independent in adls and ambulation but lately has become extremely short of breath on exertion, no home oxygen, discussed with patient and short term half-way for rehab prior to going back home, patient declined, also discussed with her VNA and she stated she would think about this but at this time did not want any services at this time, case management will follow. DMITRY OSULLIVAN
--- NOTE | 2019-06-01 11:25 | NUR ---
SENT TO ECHO VIA WHEELCHAIR
--- NOTE | 2019-06-01 14:24 | NUR ---
WALKED PATIENT IN TEE PER DR BLACK.PT WAS ONLY ABLE TO WALK 3 ROOMS DOWN IN THE TEE BEFORE BECOMING VISABLY SHORT OF BREATH, STATING SHE NEEDED TO TAKE A BREAK AND WANTED TO RETURN TO ROOM INSTEAD OF CONTINUING TO WALK TO NURSING STATION PLANNED. PT SAO2 ON ROOM AIR DROPPED TO 91% WHILE WALKING. WALKED PATIENT BACK TO ROOM, SAO2 91%, APPLIED O2 2 LITERS, 2 MINUTE RECOVERY AND PATIENT RETURNED TO SAO2 97%. DR. BLACK MADE AWARE, FROM HIS STAND POINT HE BELIEVES PATIENT SHOULD GO TO SKILLED NURING FACILITY UPON DISCHARGE
--- NOTE | 2019-06-01 18:00 | NUR ---
BLOOD SUGAR WAS NOT TAKEN PRIOR TO PATIETN EATING DINNER, PT REFUSED FOR BLOOD SUGAR TO BE TAKEN AT THIS TIME.
[2019-06-02] VITALS: BP 142/74
[2019-06-02 04:00] VITALS: BP 140/78
[2019-06-02 08:00] VITALS: BP 120/76
--- NOTE | 2019-06-02 08:35 | NUR ---
PHYSICAL THERAPY Patient gives informed consent for treatment. Patient was sitting on EOB upon this METALWORKING SPECIALIST arriving in the patient's room. Patient has no complaints of pain. Patient says she is a little SOB as usual. Patient is on 1 liter of spO2 via nasal canula. Patient sit to stand from EOB with SBA. Patient ambulated 60' x 1 with EVAPORATOR OPERATOR to Close Supervision and 1 liter of spO2 via nasal canula with 3 short rest breaks due to SOB. Patient then performed TUG TEST in 17 seconds total and no LOB. Patient performed 8 sit to stands with use of UEs in 30 seconds and SBA. Patient performed 1 minute standing tolerance EYES CLOSED with multiple LOB the patient was able to correct herself. Patient's O2 SATS were taken and recorded as 91% post ambulating and pulse was 87. Patient's O2 SATS quickly recovered within 30 seconds to 93% and pulse at 78. Patient was left in sitting on EOB with call light within reach, O2 connected to wall outlet with 1 liter of spO2, and tray table near patient. Patient was 1:1 with this METALWORKING SPECIALIST for 23 minutes. ALVIN MCCLENDON METALWORKING SPECIALIST
--- NOTE | 2019-06-02 08:53 | NUR ---
Patient requesting a referral to 1. [facility] and 2. [facility]. [facility] and faxed referral. waiting on review/acceptance.
--- NOTE | 2019-06-02 09:00 | NUR ---
case management visits with patient, patient has agreed to go to a short term residential prior to going home, production control planner will be referred to [facility] and [facility], case management will follow
--- NOTE | 2019-06-02 09:32 | NUR ---
DR PADILLA ROUNDED AND SEEN PT.
[2019-06-02 12:00] VITALS: BP 127/48
--- NOTE | 2019-06-02 12:06 | NUR ---
py walked on room air. pt did not qualify for home o2. started at hr72 spo2-94, when finished, pt sitting on bed with hr 93 spo2 96%. room air. dropped to 90% while walking
[2019-06-02] MEDS ORDERED: CIPRO500 MG PO (14:13)
--- NOTE | 2019-06-02 14:37 | NUR ---
Patient is discharged to [facility], family is transporting around 3:15PM. Notified [facility].
--- NOTE | 2019-06-02 14:44 | NUR ---
PHYSICAL THERAPY Pt completed sit-std sbax1. pt ambulated 75 feet x 1 minax1 hhax1. Pt in out bathroom sbax1. Pt pulse ox 84 with gait down chavarria mild unsteadiness education required on deep breathing. Pt pt pulse ox 94 at rest with 1 liter o2. Pt was seen for 24 minutes Humera Katz [id number]
--- NOTE | 2019-06-02 15:30 | NUR ---
REPORT CALLED TO THE ORCHARDS OF [facility].
--- NOTE | 2019-06-02 15:35 | NUR ---
Discharge instructions reviewed with patient/family. Patient receptive and verbalizes understanding. Follow-up care arranged. Written instructions given to patient/family. ROBERT JOSEPH
--- NOTE | 2019-06-03 07:47 | NUR ---
PHYSICAL THERAPY CO-SIGN I approve of the Physical Therapy notes written above. JUSTICE DOLL
== END 2019-06-02 15:35 | disposition other institution (70) | DRG 871 ==
LOC: ED 15:56 → EDHOLD 18:20 → 4E 18:20
PROVIDERS: Emergency Medicine; Family Medicine; Internal Medicine; ADMIT Internal Medicine
DX: A41.9 Sepsis, unspecified organism (principal); I50.33 Acute on chronic diastolic (congestive) heart failure; J96.01 Acute respiratory failure with hypoxia; N17.0 Acute kidney failure with tubular necrosis; N39.0 Urinary tract infection, site not specified; I13.0 Hypertensive heart and chronic kidney disease with heart failure and stage 1 through stage 4 chronic kidney disease, or unspecified chronic kidney disease; J44.1 Chronic obstructive pulmonary disease with (acute) exacerbation; J45.41 Moderate persistent asthma with (acute) exacerbation; E87.2 Acidosis; R65.20 Severe sepsis without septic shock; N18.3 Chronic kidney disease, stage 3 (moderate); N32.81 Overactive bladder; M19.90 Unspecified osteoarthritis, unspecified site; E11.22 Type 2 diabetes mellitus with diabetic chronic kidney disease; E11.65 Type 2 diabetes mellitus with hyperglycemia; G25.2 Other specified forms of tremor; K21.9 Gastro-esophageal reflux disease without esophagitis; E78.5 Hyperlipidemia, unspecified; I48.0 Paroxysmal atrial fibrillation; I25.10 Atherosclerotic heart disease of native coronary artery without angina pectoris; G89.29 Other chronic pain; I27.20 Pulmonary hypertension, unspecified; E66.01 Morbid (severe) obesity due to excess calories; R79.89 Other specified abnormal findings of blood chemistry; I08.3 Combined rheumatic disorders of mitral, aortic and tricuspid valves; T50.2X5A Adverse effect of carbonic-anhydrase inhibitors, benzothiadiazides and other diuretics, initial encounter; Y92.89 Other specified places as the place of occurrence of the external cause; I25.2 Old myocardial infarction; Z87.442 Personal history of urinary calculi; Z87.01 Personal history of pneumonia (recurrent); Z87.440 Personal history of urinary (tract) infections; Z91.81 History of falling; Z98.42 Cataract extraction status, left eye; Z98.41 Cataract extraction status, right eye; Z95.0 Presence of cardiac pacemaker; Z82.49 Family history of ischemic heart disease and other diseases of the circulatory system; Z81.2 Family history of tobacco abuse and dependence; Z80.8 Family history of malignant neoplasm of other organs or systems; Z84.89 Family history of other specified conditions; Z79.82 Long term (current) use of aspirin; Z79.899 Other long term (current) drug therapy; Z79.01 Long term (current) use of anticoagulants; Z68.33 Body mass index [BMI] 33.0-33.9, adult

== ENCOUNTER 2019-12-23 11:41 | Inpatient (IN) | payer MEDICARE, OTHER ==
[~2019-12-23] VITALS: Ht 157.4 cm; Wt 76.4 kg
[2019-12-23 11:50] VITALS: BP 94/57
[2019-12-23 12:22] VITALS: BP 119/48
[2019-12-23 12:33] LABS: BASO % 0.2 % (0.0-1.0); EOS # 0.3 10*3/uL (0.0-0.4); EOS % 2.5 % (1.0-4.0); HEMATOCRIT 36.4 % (37.0-47.0); HEMOGLOBIN 11.9 g/dl (12.0-16.0); LYMPH # 2.1 10*3/uL (1.3-4.4); LYMPH % 21.1 % (27.0-41.0); MEAN CELL VOLUME 92.6 fl (81.0-99.0); MEAN CORPUSCULAR HGB 30.3 pg (27.0-31.0); MEAN CORPUSCULAR HGB CONC 32.7 g/dl (33.0-37.0); MEAN PLATELET VOLUME 10.4 fl (9.6-12.3); MONO # 0.8 10*3/uL (0.1-1.0); MONO % 7.7 % (3.0-9.0); NEUT # 6.7 10*3/uL (2.3-7.9); NEUT % 68.1 % (47.0-73.0); PLATELET COUNT AUTOMATED 166 10*3/uL (130-400); RED BLOOD COUNT 3.93 10*6/uL (4.10-5.10); RED CELL DISTRI WIDTH 12.7 % (0-14.5); WHITE BLOOD COUNT 9.9 10*3/uL (4.8-10.8)
[2019-12-23 12:45] LABS: ACT PARTIAL THROMBO TIME 29.9 SECONDS (20.0-32.1)
[2019-12-23 12:57] LABS: ALBUMIN 3.5 gm/dl (3.1-4.5); CREATININE 1.19 mg/dL (0.55-1.02); POTASSIUM 3.7 mmol/L (3.5-5.1); TOTAL PROTEIN 7.4 gm/dL (6.4-8.2)
[2019-12-23 13:02] LABS: TROPONIN I 0.05 ng/ml (<0.045)
[2019-12-23 13:10] VITALS: BP 101/42
--- NOTE | 2019-12-23 13:15 | NUR ---
PT W/O ACUTE DISTRESS NOTED AWAITING ALL RESULTS FOR ADDITIONAL PLAN OF CARE,FAMILY @ BEDSIDE,SAFETY PRECAUTIONS INTACT AND CALL LIGHT WITHIN REACH.
--- NOTE | 2019-12-23 13:39 | NUR ---
PT POSITIONED FOR COMFORT WITH DIET MICHELLE JAMIE PROVIDED AND NO ADDITIONAL COMPLAINTS VOICED,WILL CONTINUE TO MONITOR.
[2019-12-23 14:34] LABS: CLARITY SL CLOUDY (CLEAR); COLOR YELLOW (YELLOW)
[2019-12-23 14:35] LABS: BILIRUBIN NEGATIVE (NEGATIVE); GLUCOSE NEGATIVE (NEGATIVE); KETONE NEGATIVE (NEGATIVE); LEUKO ESTERASE TRACE (NEGATIVE); NITRITE NEGATIVE (NEGATIVE); UROBILINOGEN 0.2 E.U./dl (0.2-1.0)
[2019-12-23 14:37] LABS: BLOOD 1+ (NEGATIVE); WBC 51-100 wbc/hpf (0-5)
[2019-12-23 14:38] LABS: BACTERIA 1+
[2019-12-23 15:14] VITALS: BP 114/44
[2019-12-23 16:00] VITALS: BP 120/76
[2019-12-23] MEDS ORDERED: Lasix80 MG PO (16:45)
[2019-12-23] MEDS ORDERED: SYMB160 INH (16:48)
--- NOTE | 2019-12-23 19:14 | NUR ---
DR GREENBERG NOTIFIED OF UPDATED MED REC.
[2019-12-23 20:00] VITALS: BP 86/42
--- NOTE | 2019-12-23 21:04 | NUR ---
DR GREENBERG NOTIFIED OF MANUAL BP READING OF 84/50. STATES TO HOLD DOSE OF TOPROL THAT IS ORDERED FOR THIS EVENING AND TO GIVE THE PT A 500CC BOLUS.
[2019-12-24] VITALS: BP 100/50; BP 110/44
--- NOTE | 2019-12-24 | NUR ---
AFTER COMPLETION OF 500CC BOLUS MANUAL BP IS 100/50. PT DENIES ANY DIZZINESS. WILL MONITOR.
--- NOTE | 2019-12-24 01:32 | NUR ---
24 HOUR CHART CHECK COMPLETE.
[2019-12-24 07:09] LABS: BASO % 0.2 % (0.0-1.0); EOS # 0.3 10*3/uL (0.0-0.4); EOS % 3.1 % (1.0-4.0); HEMATOCRIT 34.4 % (37.0-47.0); HEMOGLOBIN 11.2 g/dl (12.0-16.0); LYMPH % 23.6 % (27.0-41.0); MEAN CELL VOLUME 92.7 fl (81.0-99.0); MEAN CORPUSCULAR HGB 30.2 pg (27.0-31.0); MEAN CORPUSCULAR HGB CONC 32.6 g/dl (33.0-37.0); MEAN PLATELET VOLUME 10.9 fl (9.6-12.3); MONO # 0.7 10*3/uL (0.1-1.0); NEUT # 5.4 10*3/uL (2.3-7.9); NEUT % 64.6 % (47.0-73.0); PLATELET COUNT AUTOMATED 162 10*3/uL (130-400); RED BLOOD COUNT 3.71 10*6/uL (4.10-5.10); RED CELL DISTRI WIDTH 12.6 % (0-14.5); WHITE BLOOD COUNT 8.3 10*3/uL (4.8-10.8)
[2019-12-24 07:40] LABS: ALBUMIN 3.2 gm/dl (3.1-4.5); CREATININE 1.19 mg/dL (0.55-1.02); PHOSPHOROUS 2.8 mg/dL (2.5-4.9); POTASSIUM 3.3 mmol/L (3.5-5.1); TOTAL PROTEIN 6.9 gm/dL (6.4-8.2)
[2019-12-24 07:50] LABS: FREE T4 1.25 ng/dl (0.76-1.46); THYROID STIM HORMONE (HS) 2.7 uIU/ml (0.358-4.75)
[2019-12-24 08:00] VITALS: BP 116/52
[2019-12-24 08:17] LABS: VITAMIN D, 25-HYDROXY 33.2 ng/mL (30-100)
--- NOTE | 2019-12-24 13:49 | NUR ---
PT DISCHARGED HOME AT THIS TIME. HEPLOCK AND ORDER TAKER DC'D. PT TAKEN OUT BY WHEELCHAIR WITH HER SISTER TO DRIVE HER HOME.
--- NOTE | 2019-12-24 13:59 | NUR ---
Educational Technologist in to talk to patient. Patient states lives at HOME with SON. There are NO steps in the home. Physician: Noemi SHAHID Pharmacy: [facility] services: NONE Patient's level of ADLs: INDEPENDENT Patient has working utilities: YES DME: HAS O2 SHE USES [employer] DOES NOT KNOW NAME OF COMPANY Follow-up physician's appointment after d/c: WILL BE MADE BY HOSPITALIST NURSE DIRECTOR Does patient want to access PORTAL?: NO Discharge plan PT LIVES AT HOME WITH HER SON AND IS INDEPENDENT IN HER CARE DENIES SHE WILL HAVE ANY NEEDS ON DISCHARGE. FAMILY IS VERY SUPPORTIVE WITH HER CARE. WILL CONTINUE TO FOLLOW. STATES SHE WILL HAVE A RIDE HOME.. RAHUL WOMACK
== END 2019-12-24 13:50 | disposition home or self-care (01) | DRG 391 ==
LOC: ED 11:41 → EDHOLD 14:57 → 5E 14:57
PROVIDERS: Emergency Medicine; Registered Nurse; ADMIT Internal Medicine
DX: K52.9 Noninfective gastroenteritis and colitis, unspecified (principal); N17.0 Acute kidney failure with tubular necrosis; N39.0 Urinary tract infection, site not specified; I13.0 Hypertensive heart and chronic kidney disease with heart failure and stage 1 through stage 4 chronic kidney disease, or unspecified chronic kidney disease; I50.32 Chronic diastolic (congestive) heart failure; D68.69 Other thrombophilia; E86.0 Dehydration; K21.9 Gastro-esophageal reflux disease without esophagitis; E78.2 Mixed hyperlipidemia; N18.3 Chronic kidney disease, stage 3 (moderate); I25.10 Atherosclerotic heart disease of native coronary artery without angina pectoris; I48.0 Paroxysmal atrial fibrillation; E11.22 Type 2 diabetes mellitus with diabetic chronic kidney disease; B34.9 Viral infection, unspecified; I25.2 Old myocardial infarction; Z98.42 Cataract extraction status, left eye; Z98.41 Cataract extraction status, right eye; Z95.0 Presence of cardiac pacemaker; Z82.49 Family history of ischemic heart disease and other diseases of the circulatory system; Z79.82 Long term (current) use of aspirin; Z79.899 Other long term (current) drug therapy

== ENCOUNTER → 2020-01-29 | Outpatient (CLI) | payer MEDICARE, OTHER ==
[~2020-01-29] MED LIST changes: +SYMB160 INH
[2020-01-29 10:18] LABS: CREATININE 1.16 mg/dL (0.55-1.02); POTASSIUM 4.6 mmol/L (3.5-5.1)
== END | disposition home or self-care (01) ==
LOC: LAB 09:21
PROVIDERS: Specialist
DX: I50.32 Chronic diastolic (congestive) heart failure (principal)

== ENCOUNTER → 2020-12-29 | Outpatient (CLI) | payer MEDICARE, OTHER ==
[~2020-12-29] MED LIST changes: +KLOR-CON M2020 ME1 PO; +LEVOFLOXACIN500 MG PO
== END | disposition home or self-care (01) ==
LOC: CARD 00:04
PROVIDERS: ATTEND Internal Medicine Cardiovascular Disease
DX: I08.3 Combined rheumatic disorders of mitral, aortic and tricuspid valves (principal); I70.0 Atherosclerosis of aorta; I50.32 Chronic diastolic (congestive) heart failure

== ENCOUNTER 2021-03-07 16:26 | Inpatient (IN) | payer MEDICARE, OTHER ==
[~2021-03-07] VITALS: Ht 157.5 cm; Wt 80.1 kg
[~2021-03-07 16:26] MED LIST changes: -KLOR-CON M2020 ME1 PO; -LEVOFLOXACIN500 MG PO
[2021-03-07 16:36] VITALS: BP 96/46
[2021-03-07 17:12] LABS: BASO % 0.3 % (0.0-1.0); EOS # 0.3 10*3/uL (0.0-0.4); EOS % 3.3 % (1.0-4.0); HEMATOCRIT 39.1 % (37.0-47.0); LYMPH # 2.6 10*3/uL (1.3-4.4); LYMPH % 33.7 % (27.0-41.0); MEAN CELL VOLUME 93.5 fl (81.0-99.0); MEAN CORPUSCULAR HGB 30.1 pg (27.0-31.0); MEAN CORPUSCULAR HGB CONC 32.2 g/dl (33.0-37.0); MONO # 0.8 10*3/uL (0.1-1.0); NEUT # 4.1 10*3/uL (2.3-7.9); NEUT % 52.3 % (47.0-73.0); PLATELET COUNT AUTOMATED 243 10*3/uL (130-400); RED BLOOD COUNT 4.18 10*6/uL (4.10-5.10); RED CELL DISTRI WIDTH 13.6 % (0-14.5); WHITE BLOOD COUNT 7.8 10*3/uL (4.8-10.8)
[2021-03-07 17:30] LABS: ALBUMIN 3.4 gm/dl (3.1-4.5); ALKALINE PHOSPHATASE 91 U/L (45-117); BUN 124 mg/dl (7-24); CHLORIDE 104 mmol/L (98-107); CREATININE 2.64 mg/dL (0.55-1.02); SGOT/AST 11 IU/L (3-35); SGPT/ALT 27 U/L (12-78); SODIUM 134 mmol/L (136-145); TOTAL PROTEIN 7.4 gm/dL (6.4-8.2)
[2021-03-07 17:32] LABS: POTASSIUM 6.4 mmol/L (3.5-5.1); TROPONIN I < 0.015 ng/ml (<0.045)
[2021-03-07 18:27] VITALS: BP 114/32
[2021-03-07 18:32] LABS: BILIRUBIN Negative (Negative); BLOOD 2+ (Negative); CLARITY Clear (Clear); COLOR Yellow (Yellow); GLUCOSE Negative (Negative); KETONE Negative (Negative); LEUKO ESTERASE 2+ (Negative); NITRITE Negative (Negative); UROBILINOGEN 0.2 E.U./dl (0.0-1.0)
[2021-03-07 18:52] LABS: BACTERIA TRACE; HYALINE CAST 0-2; RBC 21-30 rbc/hpf (0-2); WBC 51-100 wbc/hpf (0-5)
[2021-03-07 21:03] VITALS: BP 110/63
[2021-03-07 21:20] VITALS: BP 103/50
[2021-03-07 22:35] LABS: CREATININE 2.15 mg/dL (0.55-1.02); POTASSIUM 5.9 mmol/L (3.5-5.1)
[2021-03-08] VITALS: BP 141/67
[2021-03-08 07:12] LABS: BASO % 0.1 % (0.0-1.0); EOS # 0.3 10*3/uL (0.0-0.4); EOS % 3.7 % (1.0-4.0); HEMATOCRIT 37.9 % (37.0-47.0); LYMPH # 1.9 10*3/uL (1.3-4.4); LYMPH % 24.7 % (27.0-41.0); MEAN CELL VOLUME 94.5 fl (81.0-99.0); MEAN CORPUSCULAR HGB 29.7 pg (27.0-31.0); MEAN CORPUSCULAR HGB CONC 31.4 g/dl (33.0-37.0); MEAN PLATELET VOLUME 10.9 fl (9.6-12.3); MONO # 0.8 10*3/uL (0.1-1.0); NEUT # 4.8 10*3/uL (2.3-7.9); PLATELET COUNT AUTOMATED 189 10*3/uL (130-400); RED BLOOD COUNT 4.01 10*6/uL (4.10-5.10); RED CELL DISTRI WIDTH 13.5 % (0-14.5); WHITE BLOOD COUNT 7.8 10*3/uL (4.8-10.8)
[2021-03-08 07:46] LABS: CREATININE 1.65 mg/dL (0.55-1.02); POTASSIUM 5.9 mmol/L (3.5-5.1)
[2021-03-08 08:00] VITALS: BP 96/52
[2021-03-08] MEDS ORDERED: KLOR-CON M2020 ME1 PO (08:03)
[2021-03-08] MEDS ORDERED: SYMB160 INH (08:05)
[2021-03-08 12:00] VITALS: BP 103/81
[2021-03-08 16:00] VITALS: BP 125/43
[2021-03-08 20:00] VITALS: BP 129/42
[2021-03-09] VITALS: BP 138/46
[2021-03-09 06:31] LABS: BASO % 0.3 % (0.0-1.0); EOS # 0.3 10*3/uL (0.0-0.4); EOS % 4.5 % (1.0-4.0); LYMPH # 1.8 10*3/uL (1.3-4.4); LYMPH % 27.6 % (27.0-41.0); MEAN CORPUSCULAR HGB 30.2 pg (27.0-31.0); MEAN CORPUSCULAR HGB CONC 30.7 g/dl (33.0-37.0); MEAN PLATELET VOLUME 10.8 fl (9.6-12.3); MONO # 0.5 10*3/uL (0.1-1.0); MONO % 7.9 % (3.0-9.0); NEUT % 59.3 % (47.0-73.0); PLATELET COUNT AUTOMATED 193 10*3/uL (130-400); RED BLOOD COUNT 4.17 10*6/uL (4.10-5.10); RED CELL DISTRI WIDTH 13.5 % (0-14.5); WHITE BLOOD COUNT 6.7 10*3/uL (4.8-10.8)
[2021-03-09 06:34] LABS: POTASSIUM 5.2 mmol/L (3.5-5.1)
[2021-03-09 06:35] LABS: MEAN CELL VOLUME 98.3 fl (81.0-99.0)
[2021-03-09 06:37] LABS: CREATININE 1.18 mg/dL (0.55-1.02)
[2021-03-09 08:00] VITALS: BP 155/74
[2021-03-09 11:30] VITALS: BP 103/81
[2021-03-09 16:00] VITALS: BP 129/75
[2021-03-09 20:00] VITALS: BP 134/47
[2021-03-10] VITALS: BP 135/50
[2021-03-10 06:19] LABS: BASO % 0.2 % (0.0-1.0); EOS # 0.3 10*3/uL (0.0-0.4); EOS % 3.3 % (1.0-4.0); HEMATOCRIT 36.2 % (37.0-47.0); LYMPH # 1.6 10*3/uL (1.3-4.4); LYMPH % 18.7 % (27.0-41.0); MEAN CELL VOLUME 97.6 fl (81.0-99.0); MEAN CORPUSCULAR HGB 29.9 pg (27.0-31.0); MEAN CORPUSCULAR HGB CONC 30.7 g/dl (33.0-37.0); MEAN PLATELET VOLUME 10.7 fl (9.6-12.3); MONO # 0.7 10*3/uL (0.1-1.0); MONO % 7.6 % (3.0-9.0); NEUT # 6.1 10*3/uL (2.3-7.9); PLATELET COUNT AUTOMATED 161 10*3/uL (130-400); RED BLOOD COUNT 3.71 10*6/uL (4.10-5.10); RED CELL DISTRI WIDTH 13.6 % (0-14.5); WHITE BLOOD COUNT 8.7 10*3/uL (4.8-10.8)
[2021-03-10 06:39] LABS: CHLORIDE 121 mmol/L (98-107); CREATININE 0.93 mg/dL (0.55-1.02); POTASSIUM 5.7 mmol/L (3.5-5.1); SODIUM 145 mmol/L (136-145)
[2021-03-10 06:41] LABS: BUN 43 mg/dl (7-24)
[2021-03-10 08:00] VITALS: BP 138/58
[2021-03-10 12:00] VITALS: BP 156/42
[2021-03-10 12:09] LABS: BASO % 0.1 % (0.0-1.0); EOS # 0.2 10*3/uL (0.0-0.4); EOS % 2.1 % (1.0-4.0); HEMATOCRIT 37.4 % (37.0-47.0); LYMPH # 1.6 10*3/uL (1.3-4.4); LYMPH % 17.1 % (27.0-41.0); MEAN CELL VOLUME 98.7 fl (81.0-99.0); MEAN CORPUSCULAR HGB 30.1 pg (27.0-31.0); MEAN CORPUSCULAR HGB CONC 30.5 g/dl (33.0-37.0); MEAN PLATELET VOLUME 10.5 fl (9.6-12.3); MONO # 0.8 10*3/uL (0.1-1.0); MONO % 8.5 % (3.0-9.0); NEUT # 6.6 10*3/uL (2.3-7.9); PLATELET COUNT AUTOMATED 164 10*3/uL (130-400); RED BLOOD COUNT 3.79 10*6/uL (4.10-5.10); RED CELL DISTRI WIDTH 13.6 % (0-14.5); WHITE BLOOD COUNT 9.2 10*3/uL (4.8-10.8)
[2021-03-10 12:21] LABS: BUN 37 mg/dl (7-24); CHLORIDE 120 mmol/L (98-107); CREATININE 0.98 mg/dL (0.55-1.02); POTASSIUM 5.7 mmol/L (3.5-5.1); SODIUM 144 mmol/L (136-145)
[2021-03-10] MEDS ORDERED: ASPIRIN ADULT L81 M2 PO (13:12)
[2021-03-10] MEDS ORDERED: XARE20MG PO (13:12)
[2021-03-10] MEDS ORDERED: LEVOFLOXACIN500 MG PO (13:12)
== END 2021-03-10 15:50 | disposition home health service (06) | DRG 640 ==
LOC: ED 16:26 → EDHOLD 19:47 → 4E 19:47
PROVIDERS: Emergency Medicine; Hospitalist; Internal Medicine; Student in an Organized Health Care Education/Training Program; ADMIT Family Medicine; ATTEND Family Medicine
DX: E87.5 Hyperkalemia (principal); N17.0 Acute kidney failure with tubular necrosis; N30.01 Acute cystitis with hematuria; I13.0 Hypertensive heart and chronic kidney disease with heart failure and stage 1 through stage 4 chronic kidney disease, or unspecified chronic kidney disease; I50.32 Chronic diastolic (congestive) heart failure; I25.10 Atherosclerotic heart disease of native coronary artery without angina pectoris; I48.0 Paroxysmal atrial fibrillation; E86.0 Dehydration; N18.30 Chronic kidney disease, stage 3 unspecified; E11.22 Type 2 diabetes mellitus with diabetic chronic kidney disease; G89.29 Other chronic pain; K21.9 Gastro-esophageal reflux disease without esophagitis; E83.41 Hypermagnesemia; E11.65 Type 2 diabetes mellitus with hyperglycemia; M89.49 Other hypertrophic osteoarthropathy, multiple sites; R19.5 Other fecal abnormalities; Z95.0 Presence of cardiac pacemaker; Z98.42 Cataract extraction status, left eye; Z98.41 Cataract extraction status, right eye; Z82.49 Family history of ischemic heart disease and other diseases of the circulatory system; Z82.3 Family history of stroke; I25.2 Old myocardial infarction; Z87.442 Personal history of urinary calculi; Z79.82 Long term (current) use of aspirin; Z79.899 Other long term (current) drug therapy; Z79.01 Long term (current) use of anticoagulants; Z20.822 Contact with and (suspected) exposure to COVID-19

== ENCOUNTER → 2021-03-13 | Outpatient (CLI) | payer MEDICARE, OTHER ==
[~2021-03-13] MED LIST changes: +KLOR-CON M2020 ME1 PO; +LEVOFLOXACIN500 MG PO
[2021-03-13 10:29] LABS: CREATININE 1.54 mg/dL (0.55-1.02); POTASSIUM 4.4 mmol/L (3.5-5.1)
== END | disposition home or self-care (01) ==
LOC: LAB 09:05
PROVIDERS: ATTEND Student in an Organized Health Care Education/Training Program
DX: E78.5 Hyperlipidemia, unspecified (principal); R19.5 Other fecal abnormalities

== ENCOUNTER → 2021-04-03 | Day surgery (SDC) | payer MEDICARE, OTHER ==
[~2021-04-03] VITALS: Ht 167.6 cm; Wt 76.2 kg
[~2021-04-03] MED LIST changes: +HYDROCIL INSTA1 EACH PO
[2021-04-03 09:30] VITALS: BP 128/93
[2021-04-03 11:06] VITALS: BP 116/43
[2021-04-03 11:36] VITALS: BP 122/52
== END | disposition home or self-care (01) ==
LOC: SDC 03-30 11:00
PROVIDERS: ATTEND Surgery
DX: K62.5 Hemorrhage of anus and rectum (principal); K29.50 Unspecified chronic gastritis without bleeding; K57.30 Diverticulosis of large intestine without perforation or abscess without bleeding; I48.91 Unspecified atrial fibrillation; E78.5 Hyperlipidemia, unspecified; I13.0 Hypertensive heart and chronic kidney disease with heart failure and stage 1 through stage 4 chronic kidney disease, or unspecified chronic kidney disease; I25.10 Atherosclerotic heart disease of native coronary artery without angina pectoris; E11.22 Type 2 diabetes mellitus with diabetic chronic kidney disease; N18.30 Chronic kidney disease, stage 3 unspecified; I50.9 Heart failure, unspecified; Z95.0 Presence of cardiac pacemaker; Z79.01 Long term (current) use of anticoagulants; Z79.899 Other long term (current) drug therapy; Z20.822 Contact with and (suspected) exposure to COVID-19

== ENCOUNTER 2021-09-07 15:19 | Emergency (ER) | payer MEDICARE, OTHER ==
[~2021-09-07] VITALS: Ht 157.4 cm; Wt 74.8 kg
[2021-09-07] MEDS ORDERED: PREDNISONE20 M1 PO (15:38)
[2021-09-07] MEDS ORDERED: XARE20MG PO (15:38)
== END 2021-09-07 18:49 | disposition home or self-care (01) ==
LOC: ED 15:19
DX: U07.1 COVID-19 (principal); Z79.899 Other long term (current) drug therapy

== ENCOUNTER 2021-09-10 12:12 | Inpatient (IN) | payer MEDICARE, OTHER ==
[~2021-09-10] VITALS: Ht 157.4 cm; Wt 74.2 kg
[2021-09-10] VITALS (7 sets, daily range): BP systolic 97–127; BP diastolic 34–78
[~2021-09-10 12:12] MED LIST changes: +PREDNISONE20 M1 PO
[2021-09-10 13:00] LABS: BASO % 0.2 % (0.0-1.0); EOS # 0.1 10*3/uL (0.0-0.4); EOS % 0.8 % (1.0-4.0); HEMATOCRIT 37.9 % (37.0-47.0); LYMPH # 1.1 10*3/uL (1.3-4.4); LYMPH % 12.4 % (27.0-41.0); MEAN CORPUSCULAR HGB CONC 32.2 g/dl (33.0-37.0); MEAN PLATELET VOLUME 10.2 fl (9.6-12.3); MONO # 0.9 10*3/uL (0.1-1.0); MONO % 9.8 % (3.0-9.0); NEUT # 6.7 10*3/uL (2.3-7.9); NEUT % 76.6 % (47.0-73.0); PLATELET COUNT AUTOMATED 144 10*3/uL (130-400); RED BLOOD COUNT 4.21 10*6/uL (4.10-5.10); RED CELL DISTRI WIDTH 14.7 % (0-14.5); WHITE BLOOD COUNT 8.8 10*3/uL (4.8-10.8)
[2021-09-10 13:11] LABS: ACT PARTIAL THROMBO TIME 32.6 SECONDS (20.0-32.1); INTERNATIONAL NORM RATIO 1.1 (2.0-3.5)
[2021-09-10 13:18] LABS: ALBUMIN 2.9 gm/dl (3.1-4.5); CREATININE 1.32 mg/dL (0.55-1.02); POTASSIUM 3.4 mmol/L (3.5-5.1)
[2021-09-10 13:19] LABS: TROPONIN I 0.015 ng/ml (<0.045)
[2021-09-11] VITALS: BP 92/72
[2021-09-11] MEDS ORDERED: ASPIRIN ADULT L81 M2 PO (01:38)
[2021-09-11] MEDS ORDERED: JANUVIA50 MG PO (01:44)
[2021-09-11] MEDS ORDERED: POTASSIUM CHLO20 ME4 PO (01:45)
[2021-09-11] MEDS ORDERED: ALDACTONE25 MG PO (01:47)
[2021-09-11] MEDS ORDERED: METHENAMINE HIPP1 G1 PO (02:03)
[2021-09-11 06:09] LABS: ALBUMIN 2.5 gm/dl (3.1-4.5); CREATININE 1.32 mg/dL (0.55-1.02); POTASSIUM 3.4 mmol/L (3.5-5.1)
[2021-09-11 06:13] LABS: BASO % 0.1 % (0.0-1.0); HEMATOCRIT 37.1 % (37.0-47.0); LYMPH # 1.1 10*3/uL (1.3-4.4); LYMPH % 12.7 % (27.0-41.0); MEAN CELL VOLUME 90.5 fl (81.0-99.0); MEAN CORPUSCULAR HGB 28.5 pg (27.0-31.0); MEAN CORPUSCULAR HGB CONC 31.5 g/dl (33.0-37.0); MEAN PLATELET VOLUME 10.7 fl (9.6-12.3); MONO # 0.7 10*3/uL (0.1-1.0); MONO % 8.5 % (3.0-9.0); NEUT # 6.7 10*3/uL (2.3-7.9); NEUT % 78.4 % (47.0-73.0); PLATELET COUNT AUTOMATED 140 10*3/uL (130-400); RED CELL DISTRI WIDTH 14.6 % (0-14.5); WHITE BLOOD COUNT 8.6 10*3/uL (4.8-10.8)
[2021-09-11 06:20] LABS: FREE T4 1.24 ng/dl (0.76-1.46); THYROID STIM HORMONE (HS) 0.197 uIU/ml (0.358-4.75); TOTAL PROTEIN 6.5 gm/dL (6.4-8.2)
[2021-09-11 08:00] VITALS: BP 92/40
[2021-09-11 09:13] LABS: VITAMIN D, 25-HYDROXY 37.4 ng/mL (30-100)
[2021-09-11 09:14] LABS: FERRITIN 362.9 ng/mL (10.0-291.0)
[2021-09-11 12:00] VITALS: BP 99/57
[2021-09-11 15:35] VITALS: BP 99/58
[2021-09-11 20:00] VITALS: BP 127/67
[2021-09-12] VITALS: BP 145/67
[2021-09-12 06:18] LABS: BASO % 0.2 % (0.0-1.0); EOS % 0.1 % (1.0-4.0); HEMATOCRIT 35.6 % (37.0-47.0); LYMPH # 1.5 10*3/uL (1.3-4.4); LYMPH % 14.1 % (27.0-41.0); MEAN CORPUSCULAR HGB 28.6 pg (27.0-31.0); MEAN CORPUSCULAR HGB CONC 31.5 g/dl (33.0-37.0); MEAN PLATELET VOLUME 11.6 fl (9.6-12.3); MONO # 0.6 10*3/uL (0.1-1.0); MONO % 6.1 % (3.0-9.0); NEUT # 8.1 10*3/uL (2.3-7.9); PLATELET COUNT AUTOMATED 150 10*3/uL (130-400); RED BLOOD COUNT 3.91 10*6/uL (4.10-5.10); RED CELL DISTRI WIDTH 14.9 % (0-14.5); WHITE BLOOD COUNT 10.3 10*3/uL (4.8-10.8)
[2021-09-12 06:25] LABS: POTASSIUM 3.6 mmol/L (3.5-5.1)
[2021-09-12 06:33] LABS: ALBUMIN 2.2 gm/dl (3.1-4.5); CREATININE 1.79 mg/dL (0.55-1.02); TOTAL PROTEIN 6.1 gm/dL (6.4-8.2)
[2021-09-12 08:00] VITALS: BP 131/93
[2021-09-12 12:00] VITALS: BP 134/108
[2021-09-12 12:55] VITALS: BP 106/80
[2021-09-12 16:00] VITALS: BP 93/51
[2021-09-12 19:56] LABS: ACT PARTIAL THROMBO TIME 37.7 SECONDS (20.0-32.1); INTERNATIONAL NORM RATIO 1.3 (2.0-3.5)
[2021-09-12 20:00] VITALS: BP 98/54
[2021-09-13] VITALS: BP 110/62; BP 113/41
[2021-09-13 05:59] LABS: CREATININE 1.57 mg/dL (0.55-1.02); POTASSIUM 3.7 mmol/L (3.5-5.1)
[2021-09-13 06:26] LABS: BASO % 0.1 % (0.0-1.0); EOS # 0.4 10*3/uL (0.0-0.4); EOS % 4.4 % (1.0-4.0); HEMATOCRIT 34.2 % (37.0-47.0); LYMPH # 1.2 10*3/uL (1.3-4.4); LYMPH % 15.4 % (27.0-41.0); MEAN CORPUSCULAR HGB 28.7 pg (27.0-31.0); MEAN CORPUSCULAR HGB CONC 31.6 g/dl (33.0-37.0); MEAN PLATELET VOLUME 11.5 fl (9.6-12.3); MONO # 0.5 10*3/uL (0.1-1.0); MONO % 5.8 % (3.0-9.0); NEUT # 5.8 10*3/uL (2.3-7.9); NEUT % 73.9 % (47.0-73.0); PLATELET COUNT AUTOMATED 153 10*3/uL (130-400); RED BLOOD COUNT 3.76 10*6/uL (4.10-5.10); WHITE BLOOD COUNT 7.9 10*3/uL (4.8-10.8)
[2021-09-13 06:30] LABS: ACT PARTIAL THROMBO TIME 34.2 SECONDS (20.0-32.1)
[2021-09-13 08:00] VITALS: BP 108/50
[2021-09-13 12:00] VITALS: BP 115/52
[2021-09-13 16:00] VITALS: BP 107/37
[2021-09-13 19:27] LABS: BILIRUBIN Negative (Negative); BLOOD 3+ (Negative); CLARITY Turbid (Clear); COLOR Yellow (Yellow); GLUCOSE 2+ (Negative); KETONE Negative (Negative); LEUKO ESTERASE 3+ (Negative); NITRITE Negative (Negative); UROBILINOGEN 0.2 E.U./dl (0.0-1.0)
[2021-09-13 20:00] VITALS: BP 93/55
[2021-09-13 20:05] LABS: BACTERIA 3+; RBC 21-30 rbc/hpf (0-2); WBC TNTC wbc/hpf (0-5)
[2021-09-13 21:20] VITALS: BP 92/60
[2021-09-14] VITALS: BP 110/62
[2021-09-14 08:00] VITALS: BP 130/40
[2021-09-14 09:31] LABS: HEMATOCRIT 33.2 % (37.0-47.0); MEAN CELL VOLUME 89.2 fl (81.0-99.0); MEAN CORPUSCULAR HGB 28.5 pg (27.0-31.0); MEAN CORPUSCULAR HGB CONC 31.9 g/dl (33.0-37.0); MEAN PLATELET VOLUME 10.9 fl (9.6-12.3); PLATELET COUNT AUTOMATED 174 10*3/uL (130-400); RED BLOOD COUNT 3.72 10*6/uL (4.10-5.10); RED CELL DISTRI WIDTH 14.7 % (0-14.5); WHITE BLOOD COUNT 5.6 10*3/uL (4.8-10.8)
[2021-09-14 09:55] LABS: CREATININE 1.12 mg/dL (0.55-1.02); POTASSIUM 3.4 mmol/L (3.5-5.1); TOTAL PROTEIN 5.8 gm/dL (6.4-8.2)
[2021-09-14 09:58] LABS: ATYPICAL LYMPHS 1 % (0-0); PLATELET SUFFICIENCY NORMAL (NORMAL); TOTAL CELLS COUNTED 100 #CELLS
[2021-09-14 12:00] VITALS: BP 100/50
[2021-09-14] MEDS ORDERED: XARE15TA PO (13:30)
[2021-09-14] MEDS ORDERED: Humalog SQ (13:30)
[2021-09-14] MEDS ORDERED: DOXYCYCLINE HY100 M3 PO (13:30)
[2021-09-14] MEDS ORDERED: LASIX20 MG PO (13:30)
[2021-09-14] MEDS ORDERED: DECADRON6 M1 PO (13:30)
[2021-09-14] MEDS ORDERED: ****K-Phos500 MG PO (13:31)
[2021-09-14 16:00] VITALS: BP 90/45
== END 2021-09-14 17:47 | DRG 177 ==
LOC: ED 12:12 → 4E 15:31 → EDHOLD 15:31 → 4E 20:46
PROVIDERS: Emergency Medicine; Internal Medicine; ADMIT Family Medicine; ATTEND Family Medicine
PROC: XW033E5 Introduction of Remdesivir Anti-infective into Peripheral Vein, Percutaneous Approach, New Technology Group 5 (ICD-10-PCS; principal; 2021-09-10)
DX: U07.1 COVID-19 (principal); G93.41 Metabolic encephalopathy; N17.0 Acute kidney failure with tubular necrosis; J12.82 Pneumonia due to coronavirus disease 2019; J15.9 Unspecified bacterial pneumonia; J96.21 Acute and chronic respiratory failure with hypoxia; J96.00 Acute respiratory failure, unspecified whether with hypoxia or hypercapnia; E87.1 Hypo-osmolality and hyponatremia; E44.0 Moderate protein-calorie malnutrition; I50.32 Chronic diastolic (congestive) heart failure; N39.0 Urinary tract infection, site not specified; I48.20 Chronic atrial fibrillation, unspecified; I13.0 Hypertensive heart and chronic kidney disease with heart failure and stage 1 through stage 4 chronic kidney disease, or unspecified chronic kidney disease; M43.16 Spondylolisthesis, lumbar region; R29.6 Repeated falls; N32.81 Overactive bladder; E87.6 Hypokalemia; K21.9 Gastro-esophageal reflux disease without esophagitis; E78.5 Hyperlipidemia, unspecified; M19.90 Unspecified osteoarthritis, unspecified site; G89.29 Other chronic pain; R25.9 Unspecified abnormal involuntary movements; I25.10 Atherosclerotic heart disease of native coronary artery without angina pectoris; I48.0 Paroxysmal atrial fibrillation; E86.0 Dehydration; E11.65 Type 2 diabetes mellitus with hyperglycemia; R00.1 Bradycardia, unspecified; E87.8 Other disorders of electrolyte and fluid balance, not elsewhere classified; E83.39 Other disorders of phosphorus metabolism; N18.9 Chronic kidney disease, unspecified; E11.22 Type 2 diabetes mellitus with diabetic chronic kidney disease; Z82.49 Family history of ischemic heart disease and other diseases of the circulatory system; Z79.01 Long term (current) use of anticoagulants; Z79.1 Long term (current) use of non-steroidal anti-inflammatories (NSAID); Z79.899 Other long term (current) drug therapy; Z95.820 Peripheral vascular angioplasty status with implants and grafts; Z68.30 Body mass index [BMI] 30.0-30.9, adult

== ENCOUNTER 2021-09-28 00:11 | Inpatient (IN) | payer MEDICARE, OTHER ==
[2021-09-28] VITALS (28 sets, daily range): BP systolic 75–125; BP diastolic 25–66
[~2021-09-28] VITALS: Ht 157.4 cm; Wt 84.9 kg
[~2021-09-28 00:11] MED LIST changes: +****K-Phos500 MG PO; +DECADRON6 M1 PO; +Humalog SQ; +JANUVIA50 MG PO; +POTASSIUM CHLO20 ME4 PO
[2021-09-28 00:41] LABS: BASO % 0.3 % (0.0-1.0); EOS # 0.1 10*3/uL (0.0-0.4); EOS % 1.3 % (1.0-4.0); HEMATOCRIT 23.4 % (37.0-47.0); LYMPH % 17.9 % (27.0-41.0); MEAN CELL VOLUME 93.6 fl (81.0-99.0); MEAN CORPUSCULAR HGB 29.2 pg (27.0-31.0); MEAN CORPUSCULAR HGB CONC 31.2 g/dl (33.0-37.0); MONO # 0.6 10*3/uL (0.1-1.0); MONO % 5.6 % (3.0-9.0); NEUT # 8.2 10*3/uL (2.3-7.9); NEUT % 73.9 % (47.0-73.0); NUCLEATED RED BLOOD CELL 0.2 % (0.0-0.0); PLATELET COUNT AUTOMATED 203 10*3/uL (130-400); RED CELL DISTRI WIDTH 15.5 % (0-14.5); WHITE BLOOD COUNT 11.1 10*3/uL (4.8-10.8)
[2021-09-28 01:01] LABS: ALBUMIN 1.9 gm/dl (3.1-4.5); CREATININE 1.33 mg/dL (0.55-1.02); POTASSIUM 5.1 mmol/L (3.5-5.1); TOTAL PROTEIN 5.2 gm/dL (6.4-8.2)
[2021-09-28 05:01] LABS: BILIRUBIN Negative (Negative); BLOOD 2+ (Negative); CLARITY Cloudy (Clear); COLOR Yellow (Yellow); GLUCOSE Negative (Negative); KETONE Negative (Negative); LEUKO ESTERASE 2+ (Negative); NITRITE Negative (Negative); SPECIFIC GRAVITY 1.015 (1.001-1.030); UROBILINOGEN 0.2 E.U./dl (0.0-1.0)
[2021-09-28 05:10] LABS: BACTERIA 1+; WBC 51-100 wbc/hpf (0-5)
[2021-09-28 06:49] LABS: BASO % 0.2 % (0.0-1.0); EOS # 0.2 10*3/uL (0.0-0.4); EOS % 1.8 % (1.0-4.0); HEMATOCRIT 23.5 % (37.0-47.0); LYMPH # 2.3 10*3/uL (1.3-4.4); LYMPH % 28.3 % (27.0-41.0); MEAN CORPUSCULAR HGB 29.4 pg (27.0-31.0); MEAN CORPUSCULAR HGB CONC 32.8 g/dl (33.0-37.0); MEAN PLATELET VOLUME 10.3 fl (9.6-12.3); MONO # 0.8 10*3/uL (0.1-1.0); MONO % 9.2 % (3.0-9.0); NEUT # 4.9 10*3/uL (2.3-7.9); NEUT % 59.5 % (47.0-73.0); NUCLEATED RED BLOOD CELL 0.2 % (0.0-0.0); PLATELET COUNT AUTOMATED 143 10*3/uL (130-400); RED BLOOD COUNT 2.62 10*6/uL (4.10-5.10); RED CELL DISTRI WIDTH 15.9 % (0-14.5); WHITE BLOOD COUNT 8.3 10*3/uL (4.8-10.8)
[2021-09-28 06:55] LABS: MEAN CELL VOLUME 89.7 fl (81.0-99.0)
[2021-09-28 07:03] LABS: CREATININE 1.18 mg/dL (0.55-1.02); FREE T4 0.64 ng/dl (0.76-1.46); POTASSIUM 4.5 mmol/L (3.5-5.1)
[2021-09-28 07:10] LABS: THYROID STIM HORMONE (HS) 1.51 uIU/ml (0.358-4.75)
[2021-09-28 19:33] LABS: MEAN CORPUSCULAR HGB CONC 31.3 g/dl (33.0-37.0); MEAN PLATELET VOLUME 10.6 fl (9.6-12.3); NUCLEATED RED BLOOD CELL 0.3 % (0.0-0.0); RED BLOOD COUNT 1.55 10*6/uL (4.10-5.10); RED CELL DISTRI WIDTH 16.7 % (0-14.5); WHITE BLOOD COUNT 6.3 10*3/uL (4.8-10.8)
[2021-09-28 19:56] LABS: HEMATOCRIT 14.4 % (37.0-47.0); MEAN CELL VOLUME 92.9 fl (81.0-99.0); PLATELET COUNT AUTOMATED 94 10*3/uL (130-400)
[2021-09-28 19:59] LABS: ACT PARTIAL THROMBO TIME 42.3 SECONDS (20.0-32.1); INTERNATIONAL NORM RATIO 1.7 (2.0-3.5)
[2021-09-28 20:22] LABS: ATYPICAL LYMPHS 1 % (0-0); TOTAL CELLS COUNTED 100 #CELLS
[2021-09-28 20:23] LABS: PLATELET SUFFICIENCY LOW (NORMAL)
[2021-09-28 20:24] LABS: MICROCYTOSIS SLIGHT
[2021-09-28 20:25] LABS: BURR CELLS FEW
[2021-09-29] VITALS (19 sets, daily range): BP systolic 90–133; BP diastolic 32–67
[2021-09-29 06:24] LABS: BASO % 0.2 % (0.0-1.0); EOS # 0.3 10*3/uL (0.0-0.4); EOS % 2.4 % (1.0-4.0); HEMATOCRIT 34.4 % (37.0-47.0); LYMPH # 2.4 10*3/uL (1.3-4.4); LYMPH % 22.1 % (27.0-41.0); MEAN CELL VOLUME 91.7 fl (81.0-99.0); MEAN CORPUSCULAR HGB 30.4 pg (27.0-31.0); MEAN CORPUSCULAR HGB CONC 33.1 g/dl (33.0-37.0); MEAN PLATELET VOLUME 10.3 fl (9.6-12.3); MONO # 0.9 10*3/uL (0.1-1.0); MONO % 8.6 % (3.0-9.0); NEUT # 7.2 10*3/uL (2.3-7.9); NEUT % 65.8 % (47.0-73.0); NUCLEATED RED BLOOD CELL 0.2 % (0.0-0.0); PLATELET COUNT AUTOMATED 122 10*3/uL (130-400); RED BLOOD COUNT 3.75 10*6/uL (4.10-5.10); RED CELL DISTRI WIDTH 14.9 % (0-14.5); WHITE BLOOD COUNT 10.9 10*3/uL (4.8-10.8)
[2021-09-29 06:39] LABS: CHLORIDE 119 mmol/L (98-107); CREATININE 0.97 mg/dL (0.55-1.02); POTASSIUM 4.7 mmol/L (3.5-5.1); SODIUM 148 mmol/L (136-145)
[2021-09-29 06:50] LABS: BUN 61 mg/dl (7-24)
[2021-09-29 15:32] LABS: BASO % 0.2 % (0.0-1.0); EOS # 0.3 10*3/uL (0.0-0.4); EOS % 3.1 % (1.0-4.0); HEMATOCRIT 31.8 % (37.0-47.0); LYMPH # 1.9 10*3/uL (1.3-4.4); LYMPH % 21.2 % (27.0-41.0); MEAN CORPUSCULAR HGB 30.1 pg (27.0-31.0); MEAN CORPUSCULAR HGB CONC 32.4 g/dl (33.0-37.0); MEAN PLATELET VOLUME 10.4 fl (9.6-12.3); MONO # 0.8 10*3/uL (0.1-1.0); MONO % 8.7 % (3.0-9.0); NEUT # 5.8 10*3/uL (2.3-7.9); NEUT % 65.8 % (47.0-73.0); NUCLEATED RED BLOOD CELL 0.5 % (0.0-0.0); PLATELET COUNT AUTOMATED 115 10*3/uL (130-400); RED BLOOD COUNT 3.42 10*6/uL (4.10-5.10); RED CELL DISTRI WIDTH 15.5 % (0-14.5); WHITE BLOOD COUNT 8.8 10*3/uL (4.8-10.8)
[2021-09-30] VITALS: BP 135/47
[2021-09-30 00:16] LABS: HEMATOCRIT 30.2 % (37.0-47.0); MEAN CORPUSCULAR HGB 30.4 pg (27.0-31.0); MEAN CORPUSCULAR HGB CONC 33.4 g/dl (33.0-37.0); MEAN PLATELET VOLUME 10.6 fl (9.6-12.3); NUCLEATED RED BLOOD CELL 0.2 % (0.0-0.0); PLATELET COUNT AUTOMATED 89 10*3/uL (130-400); RED BLOOD COUNT 3.32 10*6/uL (4.10-5.10); RED CELL DISTRI WIDTH 15.7 % (0-14.5); WHITE BLOOD COUNT 8.1 10*3/uL (4.8-10.8)
[2021-09-30 00:45] LABS: TOTAL CELLS COUNTED 100 #CELLS
[2021-09-30 00:46] LABS: PLATELET SUFFICIENCY LOW (NORMAL)
[2021-09-30 04:00] VITALS: BP 144/45
[2021-09-30 05:36] LABS: CHLORIDE 123 mmol/L (98-107); CREATININE 0.86 mg/dL (0.55-1.02); POTASSIUM 3.9 mmol/L (3.5-5.1); SODIUM 152 mmol/L (136-145)
[2021-09-30 05:38] LABS: BUN 41 mg/dl (7-24)
[2021-09-30 06:22] LABS: BASO % 0.2 % (0.0-1.0); EOS # 0.3 10*3/uL (0.0-0.4); EOS % 3.8 % (1.0-4.0); HEMATOCRIT 28.3 % (37.0-47.0); LYMPH # 1.4 10*3/uL (1.3-4.4); LYMPH % 21.3 % (27.0-41.0); MEAN CELL VOLUME 92.8 fl (81.0-99.0); MEAN CORPUSCULAR HGB 30.2 pg (27.0-31.0); MEAN CORPUSCULAR HGB CONC 32.5 g/dl (33.0-37.0); MEAN PLATELET VOLUME 10.3 fl (9.6-12.3); MONO # 0.6 10*3/uL (0.1-1.0); NEUT # 4.3 10*3/uL (2.3-7.9); NEUT % 64.9 % (47.0-73.0); PLATELET COUNT AUTOMATED 101 10*3/uL (130-400); RED BLOOD COUNT 3.05 10*6/uL (4.10-5.10); RED CELL DISTRI WIDTH 15.9 % (0-14.5); WHITE BLOOD COUNT 6.6 10*3/uL (4.8-10.8)
[2021-09-30 08:00] VITALS: BP 102/76
[2021-09-30 10:11] LABS: BASO % 0.1 % (0.0-1.0); EOS # 0.2 10*3/uL (0.0-0.4); EOS % 2.8 % (1.0-4.0); HEMATOCRIT 29.6 % (37.0-47.0); LYMPH # 1.2 10*3/uL (1.3-4.4); LYMPH % 16.8 % (27.0-41.0); MEAN CELL VOLUME 93.1 fl (81.0-99.0); MEAN CORPUSCULAR HGB 30.2 pg (27.0-31.0); MEAN CORPUSCULAR HGB CONC 32.4 g/dl (33.0-37.0); MEAN PLATELET VOLUME 9.7 fl (9.6-12.3); MONO # 0.6 10*3/uL (0.1-1.0); MONO % 7.8 % (3.0-9.0); NEUT # 5.2 10*3/uL (2.3-7.9); NEUT % 71.9 % (47.0-73.0); NUCLEATED RED BLOOD CELL 0.3 % (0.0-0.0); PLATELET COUNT AUTOMATED 108 10*3/uL (130-400); RED BLOOD COUNT 3.18 10*6/uL (4.10-5.10); RED CELL DISTRI WIDTH 16.1 % (0-14.5); WHITE BLOOD COUNT 7.2 10*3/uL (4.8-10.8)
[2021-09-30 12:00] VITALS: BP 110/57
[2021-09-30 16:00] VITALS: BP 113/49
[2021-09-30 20:00] VITALS: BP 141/74
[2021-10-01] VITALS: BP 151/44
[2021-10-01 06:58] LABS: BASO % 0.2 % (0.0-1.0); EOS # 0.2 10*3/uL (0.0-0.4); EOS % 2.8 % (1.0-4.0); HEMATOCRIT 25.2 % (37.0-47.0); LYMPH # 1.5 10*3/uL (1.3-4.4); LYMPH % 22.5 % (27.0-41.0); MEAN CELL VOLUME 91.6 fl (81.0-99.0); MEAN CORPUSCULAR HGB 30.2 pg (27.0-31.0); MEAN CORPUSCULAR HGB CONC 32.9 g/dl (33.0-37.0); MEAN PLATELET VOLUME 10.7 fl (9.6-12.3); MONO # 0.5 10*3/uL (0.1-1.0); MONO % 8.2 % (3.0-9.0); NEUT # 4.3 10*3/uL (2.3-7.9); NEUT % 65.7 % (47.0-73.0); NUCLEATED RED BLOOD CELL 0.3 % (0.0-0.0); PLATELET COUNT AUTOMATED 101 10*3/uL (130-400); RED BLOOD COUNT 2.75 10*6/uL (4.10-5.10); RED CELL DISTRI WIDTH 15.9 % (0-14.5); WHITE BLOOD COUNT 6.5 10*3/uL (4.8-10.8)
[2021-10-01 07:56] LABS: ALBUMIN 1.7 gm/dl (3.1-4.5); ALKALINE PHOSPHATASE 46 U/L (45-117); CHLORIDE 121 mmol/L (98-107); CREATININE 0.81 mg/dL (0.55-1.02); POTASSIUM 4.1 mmol/L (3.5-5.1); SGOT/AST 18 IU/L (3-35); SGPT/ALT 16 U/L (12-78); SODIUM 149 mmol/L (136-145); TOTAL PROTEIN 4.6 gm/dL (6.4-8.2)
[2021-10-01 08:00] VITALS: BP 143/50
[2021-10-01 08:03] LABS: BUN 28 mg/dl (7-24)
== END 2021-10-01 11:13 | disposition short-term general hospital (02) | DRG 377 ==
LOC: ED 00:11 → 5E 01:52 → EDHOLD 01:52 → 5E 12:00 → ICCU 20:35 → 5E 09-30 16:48
PROVIDERS: Internal Medicine; Social Worker Clinical; Student in an Organized Health Care Education/Training Program; Surgery; ADMIT Student in an Organized Health Care Education/Training Program; ATTEND Student in an Organized Health Care Education/Training Program
PROC: 30233N1 Transfusion of Nonautologous Red Blood Cells into Peripheral Vein, Percutaneous Approach (ICD-10-PCS; principal; 2021-09-28)
DX: K29.01 Acute gastritis with bleeding (principal); N17.0 Acute kidney failure with tubular necrosis; E43 Unspecified severe protein-calorie malnutrition; R57.8 Other shock; N39.0 Urinary tract infection, site not specified; I50.32 Chronic diastolic (congestive) heart failure; I13.0 Hypertensive heart and chronic kidney disease with heart failure and stage 1 through stage 4 chronic kidney disease, or unspecified chronic kidney disease; E87.0 Hyperosmolality and hypernatremia; I95.9 Hypotension, unspecified; E11.65 Type 2 diabetes mellitus with hyperglycemia; K21.9 Gastro-esophageal reflux disease without esophagitis; N18.32 Chronic kidney disease, stage 3b; I48.0 Paroxysmal atrial fibrillation; D64.9 Anemia, unspecified; I25.10 Atherosclerotic heart disease of native coronary artery without angina pectoris; E87.8 Other disorders of electrolyte and fluid balance, not elsewhere classified; D69.6 Thrombocytopenia, unspecified; R31.9 Hematuria, unspecified; Z79.01 Long term (current) use of anticoagulants; Z68.34 Body mass index [BMI] 34.0-34.9, adult

== ENCOUNTER 2021-11-16 17:10 | Inpatient (IN) | payer MEDICARE, OTHER ==
[~2021-11-16] VITALS: Ht 157.5 cm; Wt 69.6 kg
[~2021-11-16 17:10] MED LIST changes: +IMODIUM A-D2 M2 PO; +MAGNESIUM OXID400 MG PO; -METOPROLOL SUC100 M1 PO; +METOPROLOL SUCC50 M1 PO; +PROTONIX40 MG PO; +TYLENOL EXTRA500 MG PO; +VITAMIN C1000 M5 PO
[2021-11-16 17:19] VITALS: BP 142/66
[2021-11-16 18:15] LABS: BASO % 0.1 % (0.0-1.0); EOS # 0.4 10*3/uL (0.0-0.4); HEMATOCRIT 33.5 % (37.0-47.0); LYMPH # 1.2 10*3/uL (1.3-4.4); LYMPH % 17.3 % (27.0-41.0); MEAN CELL VOLUME 99.1 fl (81.0-99.0); MEAN CORPUSCULAR HGB 29.3 pg (27.0-31.0); MEAN CORPUSCULAR HGB CONC 29.6 g/dl (33.0-37.0); MEAN PLATELET VOLUME 9.9 fl (9.6-12.3); MONO # 0.5 10*3/uL (0.1-1.0); MONO % 7.5 % (3.0-9.0); NEUT # 4.9 10*3/uL (2.3-7.9); NEUT % 69.7 % (47.0-73.0); PLATELET COUNT AUTOMATED 187 10*3/uL (130-400); RED BLOOD COUNT 3.38 10*6/uL (4.10-5.10); RED CELL DISTRI WIDTH 15.3 % (0-14.5); WHITE BLOOD COUNT 7.1 10*3/uL (4.8-10.8)
[2021-11-16 18:25] LABS: ACT PARTIAL THROMBO TIME 27.3 SECONDS (20.0-32.1); INTERNATIONAL NORM RATIO 1.1 (2.0-3.5)
[2021-11-16 18:30] LABS: ALBUMIN 3.2 gm/dl (3.1-4.5); ALKALINE PHOSPHATASE 98 U/L (45-117); BUN 22 mg/dl (7-24); CHLORIDE 100 mmol/L (98-107); CREATININE 0.95 mg/dL (0.55-1.02); LIPASE 216 U/L (73-393); POTASSIUM 3.4 mmol/L (3.5-5.1); SGOT/AST 16 IU/L (3-35); SGPT/ALT 20 U/L (12-78); SODIUM 140 mmol/L (136-145); TOTAL PROTEIN 7.5 gm/dL (6.4-8.2)
[2021-11-16 20:26] LABS: BILIRUBIN Negative (Negative); BLOOD Negative (Negative); CLARITY Turbid (Clear); COLOR Yellow (Yellow); GLUCOSE Negative (Negative); KETONE Negative (Negative); LEUKO ESTERASE 3+ (Negative); NITRITE Negative (Negative); SPECIFIC GRAVITY 1.015 (1.001-1.030); UROBILINOGEN 0.2 E.U./dl (0.0-1.0)
[2021-11-16 20:42] LABS: BACTERIA 4+; WBC TNTC wbc/hpf (0-5)
[2021-11-16 20:43] LABS: EPITHELIAL CELLS 0-2
[2021-11-16 20:44] VITALS: BP 152/58
[2021-11-17] VITALS (8 sets, daily range): BP systolic 102–150; BP diastolic 47–89
[2021-11-17 04:05] LABS: BASO % 0.2 % (0.0-1.0); EOS # 0.3 10*3/uL (0.0-0.4); EOS % 5.7 % (1.0-4.0); HEMATOCRIT 28.8 % (37.0-47.0); LYMPH # 1.2 10*3/uL (1.3-4.4); MEAN CELL VOLUME 101.4 fl (81.0-99.0); MEAN CORPUSCULAR HGB 29.6 pg (27.0-31.0); MEAN CORPUSCULAR HGB CONC 29.2 g/dl (33.0-37.0); MEAN PLATELET VOLUME 10.1 fl (9.6-12.3); MONO # 0.6 10*3/uL (0.1-1.0); NEUT # 3.7 10*3/uL (2.3-7.9); NEUT % 63.8 % (47.0-73.0); PLATELET COUNT AUTOMATED 151 10*3/uL (130-400); RED BLOOD COUNT 2.84 10*6/uL (4.10-5.10); RED CELL DISTRI WIDTH 15.5 % (0-14.5); WHITE BLOOD COUNT 5.8 10*3/uL (4.8-10.8)
[2021-11-17 04:24] LABS: ALBUMIN 2.7 gm/dl (3.1-4.5); ALKALINE PHOSPHATASE 80 U/L (45-117); BUN 20 mg/dl (7-24); CHLORIDE 101 mmol/L (98-107); CREATININE 0.82 mg/dL (0.55-1.02); POTASSIUM 3.3 mmol/L (3.5-5.1); SGOT/AST 13 IU/L (3-35); SGPT/ALT 14 U/L (12-78); SODIUM 142 mmol/L (136-145); TOTAL PROTEIN 6.5 gm/dL (6.4-8.2)
[2021-11-18] VITALS: BP 131/47
[2021-11-18 06:35] LABS: BASO % 0.4 % (0.0-1.0); EOS # 0.4 10*3/uL (0.0-0.4); EOS % 7.7 % (1.0-4.0); HEMATOCRIT 32.4 % (37.0-47.0); LYMPH # 1.3 10*3/uL (1.3-4.4); LYMPH % 27.8 % (27.0-41.0); MEAN CELL VOLUME 101.6 fl (81.0-99.0); MEAN CORPUSCULAR HGB 29.2 pg (27.0-31.0); MEAN CORPUSCULAR HGB CONC 28.7 g/dl (33.0-37.0); MEAN PLATELET VOLUME 10.1 fl (9.6-12.3); MONO # 0.5 10*3/uL (0.1-1.0); MONO % 10.5 % (3.0-9.0); NEUT # 2.5 10*3/uL (2.3-7.9); NEUT % 53.4 % (47.0-73.0); PLATELET COUNT AUTOMATED 150 10*3/uL (130-400); RED BLOOD COUNT 3.19 10*6/uL (4.10-5.10); RED CELL DISTRI WIDTH 15.5 % (0-14.5); WHITE BLOOD COUNT 4.7 10*3/uL (4.8-10.8)
[2021-11-18 06:54] LABS: ALBUMIN 2.9 gm/dl (3.1-4.5); ALKALINE PHOSPHATASE 91 U/L (45-117); BUN 19 mg/dl (7-24); CHLORIDE 99 mmol/L (98-107); CREATININE 0.86 mg/dL (0.55-1.02); POTASSIUM 3.6 mmol/L (3.5-5.1); SGOT/AST 16 IU/L (3-35); SGPT/ALT 20 U/L (12-78); SODIUM 142 mmol/L (136-145)
[2021-11-18 08:30] VITALS: BP 115/53
[2021-11-18 12:00] VITALS: BP 136/50
[2021-11-18 16:00] VITALS: BP 152/71
[2021-11-18 20:00] VITALS: BP 117/53
[2021-11-19] VITALS: BP 115/52
[2021-11-19 07:18] LABS: BASO % 0.5 % (0.0-1.0); EOS # 0.4 10*3/uL (0.0-0.4); EOS % 8.2 % (1.0-4.0); HEMATOCRIT 29.7 % (37.0-47.0); LYMPH # 1.1 10*3/uL (1.3-4.4); MEAN CELL VOLUME 101.7 fl (81.0-99.0); MEAN CORPUSCULAR HGB 29.5 pg (27.0-31.0); MEAN PLATELET VOLUME 10.5 fl (9.6-12.3); MONO # 0.5 10*3/uL (0.1-1.0); MONO % 11.2 % (3.0-9.0); NEUT # 2.3 10*3/uL (2.3-7.9); NEUT % 53.9 % (47.0-73.0); PLATELET COUNT AUTOMATED 146 10*3/uL (130-400); RED BLOOD COUNT 2.92 10*6/uL (4.10-5.10); RED CELL DISTRI WIDTH 15.2 % (0-14.5); WHITE BLOOD COUNT 4.3 10*3/uL (4.8-10.8)
[2021-11-19 07:30] LABS: BUN 20 mg/dl (7-24); CHLORIDE 102 mmol/L (98-107); CREATININE 0.76 mg/dL (0.55-1.02); POTASSIUM 3.3 mmol/L (3.5-5.1); SODIUM 141 mmol/L (136-145)
[2021-11-19 08:00] VITALS: BP 133/64
[2021-11-19 12:00] VITALS: BP 128/75
[2021-11-19 16:00] VITALS: BP 113/65
[2021-11-19 20:00] VITALS: BP 102/68
[2021-11-20] VITALS: BP 112/65
[2021-11-20 04:00] VITALS: BP 144/65
[2021-11-20 06:32] LABS: BASO % 0.4 % (0.0-1.0); EOS # 0.4 10*3/uL (0.0-0.4); HEMATOCRIT 30.6 % (37.0-47.0); LYMPH # 0.9 10*3/uL (1.3-4.4); LYMPH % 16.7 % (27.0-41.0); MEAN CELL VOLUME 100.7 fl (81.0-99.0); MEAN CORPUSCULAR HGB 30.3 pg (27.0-31.0); MEAN CORPUSCULAR HGB CONC 30.1 g/dl (33.0-37.0); MEAN PLATELET VOLUME 10.2 fl (9.6-12.3); MONO # 0.5 10*3/uL (0.1-1.0); MONO % 9.1 % (3.0-9.0); NEUT # 3.4 10*3/uL (2.3-7.9); NEUT % 66.6 % (47.0-73.0); PLATELET COUNT AUTOMATED 145 10*3/uL (130-400); RED BLOOD COUNT 3.04 10*6/uL (4.10-5.10); RED CELL DISTRI WIDTH 15.2 % (0-14.5); WHITE BLOOD COUNT 5.2 10*3/uL (4.8-10.8)
[2021-11-20 06:54] LABS: BUN 18 mg/dl (7-24); CREATININE 0.79 mg/dL (0.55-1.02)
[2021-11-20 07:48] LABS: CHLORIDE 102 mmol/L (98-107); POTASSIUM 3.4 mmol/L (3.5-5.1); SODIUM 143 mmol/L (136-145)
[2021-11-20 08:00] VITALS: BP 142/58
[2021-11-20 12:00] VITALS: BP 136/73
[2021-11-20 16:00] VITALS: BP 109/44
[2021-11-20 20:00] VITALS: BP 133/64
[2021-11-21] VITALS: BP 120/52
[2021-11-21 06:27] LABS: BASO % 0.6 % (0.0-1.0); EOS # 0.5 10*3/uL (0.0-0.4); EOS % 9.4 % (1.0-4.0); HEMATOCRIT 33.2 % (37.0-47.0); LYMPH # 1.8 10*3/uL (1.3-4.4); LYMPH % 35.8 % (27.0-41.0); MEAN CELL VOLUME 99.4 fl (81.0-99.0); MEAN CORPUSCULAR HGB 29.6 pg (27.0-31.0); MEAN CORPUSCULAR HGB CONC 29.8 g/dl (33.0-37.0); MEAN PLATELET VOLUME 10.8 fl (9.6-12.3); MONO # 0.5 10*3/uL (0.1-1.0); MONO % 9.2 % (3.0-9.0); NEUT # 2.2 10*3/uL (2.3-7.9); NEUT % 44.4 % (47.0-73.0); PLATELET COUNT AUTOMATED 180 10*3/uL (130-400); RED BLOOD COUNT 3.34 10*6/uL (4.10-5.10)
[2021-11-21 06:43] LABS: BUN 18 mg/dl (7-24); CHLORIDE 101 mmol/L (98-107)
[2021-11-21 06:55] LABS: SODIUM 142 mmol/L (136-145)
[2021-11-21 07:03] LABS: POTASSIUM 4.7 mmol/L (3.5-5.1)
[2021-11-21 08:00] VITALS: BP 146/76
[2021-11-21] MEDS ORDERED: ALDACTONE25 MG PO (10:56)
[2021-11-21] MEDS ORDERED: AZITHROMYCIN500 M2 PO (11:00)
[2021-11-21] MEDS ORDERED: AMPICILLIN500 MG PO (11:02)
[2021-11-21 12:00] VITALS: BP 144/69
== END 2021-11-21 13:20 | disposition home health service (06) | DRG 177 ==
LOC: ED 17:10 → 4E 22:01 → 5E 22:01 → EDHOLD 22:01 → 4E 11-17 14:48 → 5E 11-18 16:37
PROVIDERS: Internal Medicine; Physician Assistant; ADMIT Internal Medicine; ATTEND Internal Medicine
DX: J15.6 Pneumonia due to other Gram-negative bacteria (principal); I50.33 Acute on chronic diastolic (congestive) heart failure; I13.0 Hypertensive heart and chronic kidney disease with heart failure and stage 1 through stage 4 chronic kidney disease, or unspecified chronic kidney disease; N30.00 Acute cystitis without hematuria; I48.92 Unspecified atrial flutter; K92.2 Gastrointestinal hemorrhage, unspecified; N18.30 Chronic kidney disease, stage 3 unspecified; K21.9 Gastro-esophageal reflux disease without esophagitis; R25.9 Unspecified abnormal involuntary movements; M19.90 Unspecified osteoarthritis, unspecified site; E78.2 Mixed hyperlipidemia; G89.29 Other chronic pain; E55.9 Vitamin D deficiency, unspecified; I48.0 Paroxysmal atrial fibrillation; I25.10 Atherosclerotic heart disease of native coronary artery without angina pectoris; N32.81 Overactive bladder; E11.22 Type 2 diabetes mellitus with diabetic chronic kidney disease; D64.9 Anemia, unspecified; E87.6 Hypokalemia; E11.65 Type 2 diabetes mellitus with hyperglycemia; Z82.49 Family history of ischemic heart disease and other diseases of the circulatory system; Z79.1 Long term (current) use of non-steroidal anti-inflammatories (NSAID); Z79.899 Other long term (current) drug therapy; Z95.0 Presence of cardiac pacemaker; E78.5 Hyperlipidemia, unspecified

== ENCOUNTER → 2021-12-23 | Outpatient (CLI) | payer MEDICARE, OTHER ==
[~2021-12-23] MED LIST changes: +AMPICILLIN500 MG PO; +AZITHROMYCIN500 M2 PO
[2021-12-23 09:56] LABS: BUN 25 mg/dl (7-24); CHLORIDE 101 mmol/L (98-107); CREATININE 1.06 mg/dL (0.55-1.02); POTASSIUM 3.9 mmol/L (3.5-5.1); SODIUM 140 mmol/L (136-145)
== END | disposition home or self-care (01) ==
LOC: LAB 09:04
PROVIDERS: ATTEND Internal Medicine Cardiovascular Disease
DX: I50.32 Chronic diastolic (congestive) heart failure (principal); I34.0 Nonrheumatic mitral (valve) insufficiency

== ENCOUNTER → 2022-01-10 | Outpatient (CLI) | payer MEDICARE, OTHER ==
[2022-01-10 12:56] LABS: BASO % 0.3 % (0.0-1.0); EOS # 0.4 10*3/uL (0.0-0.4); EOS % 5.8 % (1.0-4.0); LYMPH # 1.3 10*3/uL (1.3-4.4); LYMPH % 17.4 % (27.0-41.0); MEAN CELL VOLUME 91.6 fl (81.0-99.0); MEAN CORPUSCULAR HGB CONC 30.6 g/dl (33.0-37.0); MONO # 0.6 10*3/uL (0.1-1.0); MONO % 7.8 % (3.0-9.0); NEUT # 5.1 10*3/uL (2.3-7.9); NEUT % 68.4 % (47.0-73.0); PLATELET COUNT AUTOMATED 171 10*3/uL (130-400); RED BLOOD COUNT 3.93 10*6/uL (4.10-5.10); RED CELL DISTRI WIDTH 14.1 % (0-14.5); WHITE BLOOD COUNT 7.4 10*3/uL (4.8-10.8)
[2022-01-10 13:09] LABS: IRON 46 ug/dL (50-170); TOTAL IRON BINDING CAPACITY 316 ug/dl (250-450)
== END | disposition home or self-care (01) ==
LOC: LAB 12:34
PROVIDERS: ATTEND Nurse Practitioner Family
DX: D64.9 Anemia, unspecified (principal); K92.1 Melena

== ENCOUNTER → 2022-01-16 | Outpatient (CLI) | payer MEDICARE, OTHER ==
[2022-01-16 11:40] LABS: CREATININE 1.17 mg/dL (0.55-1.02); POTASSIUM 5.2 mmol/L (3.5-5.1)
== END ==
LOC: LAB 11:09
PROVIDERS: ATTEND Family Medicine
DX: I50.9 Heart failure, unspecified (principal); E11.9 Type 2 diabetes mellitus without complications

== ENCOUNTER → 2022-04-17 | Outpatient (CLI) | payer MEDICARE, OTHER ==
[2022-04-17 12:28] LABS: BASO % 0.2 % (0.0-1.0); EOS # 0.5 10*3/uL (0.0-0.4); HEMATOCRIT 33.7 % (37.0-47.0); LYMPH # 1.6 10*3/uL (1.3-4.4); LYMPH % 19.3 % (27.0-41.0); MEAN CELL VOLUME 90.3 fl (81.0-99.0); MEAN PLATELET VOLUME 9.4 fl (9.6-12.3); MONO # 0.8 10*3/uL (0.1-1.0); MONO % 9.5 % (3.0-9.0); NEUT # 5.3 10*3/uL (2.3-7.9); NEUT % 64.4 % (47.0-73.0); PLATELET COUNT AUTOMATED 240 10*3/uL (130-400); RED BLOOD COUNT 3.73 10*6/uL (4.10-5.10); RED CELL DISTRI WIDTH 15.2 % (0-14.5); WHITE BLOOD COUNT 8.2 10*3/uL (4.8-10.8)
[2022-04-17 12:38] LABS: CREATININE 1.2 mg/dL (0.55-1.02)
[2022-04-17 12:39] LABS: IRON 42 ug/dL (50-170); TOTAL IRON BINDING CAPACITY 267 ug/dl (250-450)
== END ==
LOC: LAB 12:05
PROVIDERS: Nurse Practitioner Family; ATTEND Internal Medicine Cardiovascular Disease
DX: I27.20 Pulmonary hypertension, unspecified (principal); I50.32 Chronic diastolic (congestive) heart failure; I34.0 Nonrheumatic mitral (valve) insufficiency; M81.0 Age-related osteoporosis without current pathological fracture

== ENCOUNTER 2022-04-21 10:14 | Emergency (ER) | payer MEDICARE, OTHER ==
[~2022-04-21] VITALS: Wt 62.6 kg
[2022-04-21 10:59] LABS: BILIRUBIN Negative (Negative); BLOOD 2+ (Negative); CLARITY Turbid (Clear); COLOR Yellow (Yellow); GLUCOSE Negative (Negative); KETONE Negative (Negative); LEUKO ESTERASE 3+ (Negative); NITRITE Negative (Negative); PH 5.5 (4.5-8.0); UROBILINOGEN 0.2 E.U./dl (0.0-1.0)
[2022-04-21 10:59] LABS: BASO % 0.3 % (0.0-1.0); EOS # 0.8 10*3/uL (0.0-0.4); EOS % 6.7 % (1.0-4.0); LYMPH # 2.6 10*3/uL (1.3-4.4); LYMPH % 22.6 % (27.0-41.0); MEAN CELL VOLUME 91.8 fl (81.0-99.0); MEAN CORPUSCULAR HGB 29.2 pg (27.0-31.0); MEAN CORPUSCULAR HGB CONC 31.8 g/dl (33.0-37.0); MEAN PLATELET VOLUME 9.2 fl (9.6-12.3); MONO # 1.1 10*3/uL (0.1-1.0); MONO % 9.6 % (3.0-9.0); NEUT # 6.9 10*3/uL (2.3-7.9); PLATELET COUNT AUTOMATED 326 10*3/uL (130-400); RED BLOOD COUNT 4.25 10*6/uL (4.10-5.10); RED CELL DISTRI WIDTH 15.9 % (0-14.5); WHITE BLOOD COUNT 11.4 10*3/uL (4.8-10.8)
[2022-04-21 11:11] LABS: ACT PARTIAL THROMBO TIME 27.8 SECONDS (20.0-32.1)
[2022-04-21 11:15] LABS: CREATININE 1.53 mg/dL (0.55-1.02); TOTAL PROTEIN 8.2 gm/dL (6.4-8.2)
[2022-04-21 11:34] LABS: WBC TNTC wbc/hpf (0-5)
[2022-04-21] MEDS ORDERED: MACROBID100 M1 PO (13:06)
== END 2022-04-21 13:15 | disposition home or self-care (01) ==
LOC: ED 10:14
PROVIDERS: Emergency Medicine
DX: K62.5 Hemorrhage of anus and rectum (principal); N39.0 Urinary tract infection, site not specified; I25.10 Atherosclerotic heart disease of native coronary artery without angina pectoris; E78.5 Hyperlipidemia, unspecified; I13.0 Hypertensive heart and chronic kidney disease with heart failure and stage 1 through stage 4 chronic kidney disease, or unspecified chronic kidney disease; N18.30 Chronic kidney disease, stage 3 unspecified; M19.90 Unspecified osteoarthritis, unspecified site; K21.9 Gastro-esophageal reflux disease without esophagitis; Z79.899 Other long term (current) drug therapy

== ENCOUNTER 2022-07-13 23:06 | Emergency (ER) | payer MEDICARE, OTHER ==
[~2022-07-13] VITALS: Wt 63.5 kg
[~2022-07-13 23:06] MED LIST changes: +MACROBID100 M1 PO
[2022-07-14 00:25] LABS: BILIRUBIN Negative (Negative); BLOOD 1+ (Negative); CLARITY Turbid (Clear); COLOR Yellow (Yellow); GLUCOSE Negative (Negative); KETONE Negative (Negative); LEUKO ESTERASE 3+ (Negative); NITRITE Negative (Negative); UROBILINOGEN 0.2 E.U./dl (0.0-1.0)
[2022-07-14 00:31] LABS: BACTERIA 2+; WBC TNTC wbc/hpf (0-5)
[2022-07-14] MEDS ORDERED: CIPRO500 MG PO (00:42)
== END 2022-07-14 01:03 | disposition home or self-care (01) ==
LOC: ED 23:06
PROVIDERS: Internal Medicine
DX: N39.0 Urinary tract infection, site not specified (principal); R10.2 Pelvic and perineal pain; Z79.2 Long term (current) use of antibiotics; Z79.899 Other long term (current) drug therapy; Z95.0 Presence of cardiac pacemaker

== ENCOUNTER 2022-07-15 07:23 | Emergency (ER) | payer MEDICARE, OTHER ==
[~2022-07-15] VITALS: Ht 157.4 cm; Wt 63.5 kg
[2022-07-16] MEDS ORDERED: PYRIDIUM100 MG PO (20:48)
[2022-07-16] MEDS ORDERED: Percocet 325 MG1 TAB PO (20:48)
== END 2022-07-15 09:17 | disposition home or self-care (01) ==
LOC: ED 07:23
DX: N81.10 Cystocele, unspecified (principal); R82.81 Pyuria; E11.22 Type 2 diabetes mellitus with diabetic chronic kidney disease; I13.0 Hypertensive heart and chronic kidney disease with heart failure and stage 1 through stage 4 chronic kidney disease, or unspecified chronic kidney disease; N18.30 Chronic kidney disease, stage 3 unspecified; I50.32 Chronic diastolic (congestive) heart failure; I48.91 Unspecified atrial fibrillation; I25.10 Atherosclerotic heart disease of native coronary artery without angina pectoris; K21.9 Gastro-esophageal reflux disease without esophagitis; I25.2 Old myocardial infarction; E78.5 Hyperlipidemia, unspecified; M19.90 Unspecified osteoarthritis, unspecified site; Z79.899 Other long term (current) drug therapy; Z79.2 Long term (current) use of antibiotics; Z87.442 Personal history of urinary calculi; Z98.61 Coronary angioplasty status; Z95.0 Presence of cardiac pacemaker

== ENCOUNTER 2022-07-16 16:04 | Emergency (ER) | payer MEDICARE, OTHER ==
[2022-07-16 17:36] LABS: BASO % 0.3 % (0.0-1.0); EOS % 7.6 % (1.0-4.0); HEMATOCRIT 42.6 % (37.0-47.0); LYMPH # 2.6 10*3/uL (1.3-4.4); LYMPH % 20.4 % (27.0-41.0); MEAN CELL VOLUME 91.4 fl (81.0-99.0); MEAN CORPUSCULAR HGB CONC 31.7 g/dl (33.0-37.0); MEAN PLATELET VOLUME 9.5 fl (9.6-12.3); MONO # 1.2 10*3/uL (0.1-1.0); MONO % 9.5 % (3.0-9.0); NEUT # 7.9 10*3/uL (2.3-7.9); PLATELET COUNT AUTOMATED 267 10*3/uL (130-400); RED BLOOD COUNT 4.66 10*6/uL (4.10-5.10); RED CELL DISTRI WIDTH 13.5 % (0-14.5); WHITE BLOOD COUNT 12.7 10*3/uL (4.8-10.8)
[2022-07-16 17:52] LABS: CREATININE 1.71 mg/dL (0.55-1.02); POTASSIUM 4.5 mmol/L (3.5-5.1); TOTAL PROTEIN 8.5 gm/dL (6.4-8.2)
[2022-07-16] MEDS ORDERED: PYRIDIUM100 MG PO (20:48)
[2022-07-16] MEDS ORDERED: Percocet 325 MG1 TAB PO (20:48)
== END 2022-07-16 21:09 | disposition home or self-care (01) ==
LOC: ED 16:04
PROVIDERS: Physician Assistant
DX: N30.90 Cystitis, unspecified without hematuria (principal); Z79.899 Other long term (current) drug therapy; Z98.890 Other specified postprocedural states

== ENCOUNTER 2022-07-18 01:02 | Emergency (ER) | payer MEDICARE, OTHER ==
[~2022-07-18 01:02] MED LIST changes: +PYRIDIUM100 MG PO; +Percocet 325 MG1 TAB PO
[2022-07-18 02:05] LABS: BASO % 0.3 % (0.0-1.0); EOS # 0.9 10*3/uL (0.0-0.4); EOS % 8.9 % (1.0-4.0); LYMPH # 1.7 10*3/uL (1.3-4.4); LYMPH % 16.3 % (27.0-41.0); MEAN CELL VOLUME 91.1 fl (81.0-99.0); MEAN CORPUSCULAR HGB CONC 31.8 g/dl (33.0-37.0); MEAN PLATELET VOLUME 9.6 fl (9.6-12.3); MONO % 9.5 % (3.0-9.0); NEUT # 6.9 10*3/uL (2.3-7.9); NEUT % 64.6 % (47.0-73.0); PLATELET COUNT AUTOMATED 251 10*3/uL (130-400); RED BLOOD COUNT 4.17 10*6/uL (4.10-5.10); RED CELL DISTRI WIDTH 13.5 % (0-14.5); WHITE BLOOD COUNT 10.6 10*3/uL (4.8-10.8)
[2022-07-18 02:32] LABS: CREATININE 1.82 mg/dL (0.55-1.02); TOTAL PROTEIN 7.7 gm/dL (6.4-8.2)
== END 2022-07-18 13:33 ==
LOC: ED 01:02
PROVIDERS: Emergency Medicine
DX: E86.0 Dehydration (principal); I95.9 Hypotension, unspecified; N17.9 Acute kidney failure, unspecified; R30.0 Dysuria; Z79.899 Other long term (current) drug therapy; Z79.2 Long term (current) use of antibiotics

== ENCOUNTER 2022-10-02 18:10 | Emergency (ER) | payer MEDICARE, OTHER ==
[~2022-10-02] VITALS: Wt 66.7 kg
[~2022-10-02 18:10] MED LIST changes: +ASPIRIN CHILDRE81 MG PO; +FERROUS FUMARA324 MG PO; +GLUCOTROL XL5 MG PO; +JARDIANCE10 MG PO; +MYRBETRIQ50 M1 PO; +VISTARIL25 M2 PO
[2022-10-02 18:40] LABS: BILIRUBIN Negative (Negative); BLOOD Trace-Lysed (Negative); CLARITY Clear (Clear); COLOR Dark Yellow (Yellow); GLUCOSE Negative (Negative); KETONE Negative (Negative); LEUKO ESTERASE 3+ (Negative); NITRITE Positive (Negative); PH 6.5 (4.5-8.0)
[2022-10-02 18:51] LABS: WBC TNTC wbc/hpf (0-5)
[2022-10-02 18:52] LABS: BACTERIA 1+
[2022-10-02 19:34] LABS: BASO % 0.4 % (0.0-1.0); EOS # 0.4 10*3/uL (0.0-0.4); EOS % 5.6 % (1.0-4.0); HEMATOCRIT 33.9 % (37.0-47.0); LYMPH # 1.4 10*3/uL (1.3-4.4); LYMPH % 19.7 % (27.0-41.0); MEAN CELL VOLUME 95.8 fl (81.0-99.0); MEAN CORPUSCULAR HGB 29.4 pg (27.0-31.0); MEAN CORPUSCULAR HGB CONC 30.7 g/dl (33.0-37.0); MEAN PLATELET VOLUME 10.1 fl (9.6-12.3); MONO # 0.6 10*3/uL (0.1-1.0); MONO % 8.6 % (3.0-9.0); NEUT # 4.8 10*3/uL (2.3-7.9); NEUT % 65.6 % (47.0-73.0); PLATELET COUNT AUTOMATED 167 10*3/uL (130-400); RED BLOOD COUNT 3.54 10*6/uL (4.10-5.10); RED CELL DISTRI WIDTH 14.5 % (0-14.5); WHITE BLOOD COUNT 7.3 10*3/uL (4.8-10.8)
[2022-10-02 19:55] LABS: CREATININE 1.21 mg/dL (0.55-1.02); POTASSIUM 4.5 mmol/L (3.5-5.1); TOTAL PROTEIN 7.2 gm/dL (6.4-8.2)
== END 2022-10-02 22:28 ==
LOC: ED 18:10
PROVIDERS: Physician Assistant
DX: G89.29 Other chronic pain (principal); R10.30 Lower abdominal pain, unspecified; Z79.899 Other long term (current) drug therapy; Z79.82 Long term (current) use of aspirin; Z98.890 Other specified postprocedural states

== ENCOUNTER → 2022-12-31 | Outpatient (CLI) | payer MEDICARE, OTHER ==
[2022-12-31 09:23] LABS: BASO % 0.3 % (0.0-1.0); EOS # 0.4 10*3/uL (0.0-0.4); HEMATOCRIT 33.3 % (37.0-47.0); LYMPH # 1.1 10*3/uL (1.3-4.4); LYMPH % 17.2 % (27.0-41.0); MEAN CELL VOLUME 95.1 fl (81.0-99.0); MEAN CORPUSCULAR HGB 28.3 pg (27.0-31.0); MEAN CORPUSCULAR HGB CONC 29.7 g/dl (33.0-37.0); MEAN PLATELET VOLUME 9.4 fl (9.6-12.3); MONO # 0.5 10*3/uL (0.1-1.0); MONO % 7.5 % (3.0-9.0); NEUT # 4.3 10*3/uL (2.3-7.9); NEUT % 68.7 % (47.0-73.0); PLATELET COUNT AUTOMATED 196 10*3/uL (130-400); RED CELL DISTRI WIDTH 14.7 % (0-14.5); WHITE BLOOD COUNT 6.3 10*3/uL (4.8-10.8)
[2022-12-31 09:37] LABS: ALKALINE PHOSPHATASE 100 U/L (46-116); BUN 22 mg/dl (9-23); CHLORIDE 99 mmol/L (98-107); POTASSIUM 4.1 mmol/L (3.4-5.1); SGPT/ALT 7 U/L (10-49); TOTAL PROTEIN 7.3 gm/dL (6.0-8.0)
== END | disposition home or self-care (01) ==
LOC: LAB 08:47
PROVIDERS: ATTEND Family Medicine
DX: I50.9 Heart failure, unspecified (principal); D64.9 Anemia, unspecified

== ENCOUNTER 2023-06-03 08:46 | Inpatient (IN) | payer OTHER ==
[~2023-06-03] VITALS: Ht 157.5 cm; Wt 66.3 kg
[~2023-06-03 08:46] MED LIST changes: +AZO D-MANNOSE500 MG PO; +GABAPENTIN100 M2 PO; +HYDROCODONE-AC1 EAC1 PO; +NITROFURANTOIN100 M9 PO; +PRELIEF PO; +ZITHROMAX TRI-500 M1 PO
[2023-06-03 09:08] VITALS: BP 128/76
[2023-06-03 09:18] LABS: BILIRUBIN Negative (Negative); BLOOD 3+ (Negative); CLARITY Turbid (Clear); COLOR Dark Yellow (Yellow); GLUCOSE Negative (Negative); KETONE Negative (Negative); LEUKO ESTERASE 3+ (Negative); NITRITE Positive (Negative); SPECIFIC GRAVITY 1.015 (1.001-1.030)
[2023-06-03 09:30] LABS: WBC TNTC wbc/hpf (0-5)
[2023-06-03] MEDS ORDERED: ASPIRIN81 M1 PO (09:47)
[2023-06-03] MEDS ORDERED: GEMTESA75 MG PO (09:48)
[2023-06-03] MEDS ORDERED: LASIX40 MG PO (09:48)
[2023-06-03] MEDS ORDERED: ESTRADIOL42.5 GM V (09:48)
[2023-06-03] MEDS ORDERED: CIPRO500 MG PO (09:48)
[2023-06-03] MEDS ORDERED: HYDROCODONE-AC1 EAC1 PO (09:49)
[2023-06-03] MEDS ORDERED: HYDROXYZINE HCL25 MG PO (09:49)
[2023-06-03] MEDS ORDERED: Magnesium Oxid400 MG PO (09:50)
[2023-06-03] MEDS ORDERED: JANUVIA50 MG PO (09:50)
[2023-06-03] MEDS ORDERED: MULTIVITAMIN1 EACH PO (09:51)
[2023-06-03] MEDS ORDERED: TOPROL XL25 MG PO (09:51)
[2023-06-03] MEDS ORDERED: POTASSIUM CHLO20 ME4 PO (09:52)
[2023-06-03] MEDS ORDERED: MYSOLINE50 M2 PO (09:52)
[2023-06-03] MEDS ORDERED: VITAMIN D325 MC1 PO (09:53)
[2023-06-03] MEDS ORDERED: SIMVASTATIN40 MG PO (09:53)
[2023-06-03] MEDS ORDERED: ALDACTONE25 MG PO (09:53)
[2023-06-03 09:59] LABS: BASO % 0.4 % (0.0-1.0); EOS # 0.4 10*3/uL (0.0-0.4); EOS % 5.3 % (1.0-4.0); HEMATOCRIT 33.9 % (37.0-47.0); LYMPH # 1.4 10*3/uL (1.3-4.4); LYMPH % 16.9 % (27.0-41.0); MEAN CORPUSCULAR HGB 29.5 pg (27.0-31.0); MEAN CORPUSCULAR HGB CONC 30.1 g/dl (33.0-37.0); MEAN PLATELET VOLUME 10.1 fl (9.6-12.3); MONO # 0.8 10*3/uL (0.1-1.0); MONO % 9.7 % (3.0-9.0); NEUT # 5.6 10*3/uL (2.3-7.9); NEUT % 67.5 % (47.0-73.0); PLATELET COUNT AUTOMATED 165 10*3/uL (130-400); RED BLOOD COUNT 3.46 10*6/uL (4.10-5.10); RED CELL DISTRI WIDTH 16.7 % (0-14.5); WHITE BLOOD COUNT 8.3 10*3/uL (4.8-10.8)
[2023-06-03 10:10] LABS: ACT PARTIAL THROMBO TIME 31.6 SECONDS (20.0-32.1); INTERNATIONAL NORM RATIO 1.1 (2.0-3.5)
[2023-06-03 10:19] LABS: TOTAL PROTEIN 7.4 gm/dL (6.0-8.0)
[2023-06-03 10:31] LABS: POTASSIUM 6.9 mmol/L (3.4-5.1)
[2023-06-03 12:09] VITALS: BP 116/70
[2023-06-03 16:30] VITALS: BP 135/64
[2023-06-03 20:00] VITALS: BP 131/43
[2023-06-04] VITALS: BP 99/36
[2023-06-04 01:40] VITALS: BP 147/51
[2023-06-04 06:27] LABS: BASO % 0.3 % (0.0-1.0); EOS # 0.2 10*3/uL (0.0-0.4); EOS % 3.6 % (1.0-4.0); HEMATOCRIT 28.9 % (37.0-47.0); LYMPH # 1.2 10*3/uL (1.3-4.4); LYMPH % 19.7 % (27.0-41.0); MEAN CELL VOLUME 98.3 fl (81.0-99.0); MEAN CORPUSCULAR HGB 29.3 pg (27.0-31.0); MEAN CORPUSCULAR HGB CONC 29.8 g/dl (33.0-37.0); MEAN PLATELET VOLUME 10.1 fl (9.6-12.3); MONO # 0.6 10*3/uL (0.1-1.0); MONO % 9.3 % (3.0-9.0); NEUT # 3.9 10*3/uL (2.3-7.9); NEUT % 66.8 % (47.0-73.0); PLATELET COUNT AUTOMATED 137 10*3/uL (130-400); RED BLOOD COUNT 2.94 10*6/uL (4.10-5.10); WHITE BLOOD COUNT 5.9 10*3/uL (4.8-10.8)
[2023-06-04 07:01] LABS: TOTAL PROTEIN 5.8 gm/dL (6.0-8.0)
[2023-06-04 07:13] LABS: POTASSIUM 5.5 mmol/L (3.4-5.1)
[2023-06-04 08:00] VITALS: BP 128/78
[2023-06-04 11:55] LABS: BASO % 0.3 % (0.0-1.0); EOS # 0.3 10*3/uL (0.0-0.4); EOS % 3.2 % (1.0-4.0); HEMATOCRIT 34.2 % (37.0-47.0); LYMPH # 1.6 10*3/uL (1.3-4.4); LYMPH % 17.6 % (27.0-41.0); MEAN CELL VOLUME 100.6 fl (81.0-99.0); MEAN CORPUSCULAR HGB 29.4 pg (27.0-31.0); MEAN CORPUSCULAR HGB CONC 29.2 g/dl (33.0-37.0); MEAN PLATELET VOLUME 10.4 fl (9.6-12.3); MONO # 0.9 10*3/uL (0.1-1.0); NEUT # 6.2 10*3/uL (2.3-7.9); NEUT % 68.6 % (47.0-73.0); PLATELET COUNT AUTOMATED 148 10*3/uL (130-400); RED CELL DISTRI WIDTH 17.4 % (0-14.5)
[2023-06-04 12:00] VITALS: BP 134/80
[2023-06-04 16:00] VITALS: BP 100/50
[2023-06-04 20:00] VITALS: BP 101/40
[2023-06-05] VITALS: BP 103/52
[2023-06-05 07:49] LABS: BASO % 0.4 % (0.0-1.0); EOS # 0.2 10*3/uL (0.0-0.4); EOS % 3.2 % (1.0-4.0); HEMATOCRIT 31.1 % (37.0-47.0); LYMPH # 1.3 10*3/uL (1.3-4.4); LYMPH % 18.1 % (27.0-41.0); MEAN CELL VOLUME 100.3 fl (81.0-99.0); MEAN CORPUSCULAR HGB 29.7 pg (27.0-31.0); MEAN CORPUSCULAR HGB CONC 29.6 g/dl (33.0-37.0); MEAN PLATELET VOLUME 9.9 fl (9.6-12.3); MONO # 0.7 10*3/uL (0.1-1.0); NEUT # 4.8 10*3/uL (2.3-7.9); NEUT % 67.9 % (47.0-73.0); PLATELET COUNT AUTOMATED 147 10*3/uL (130-400); RED CELL DISTRI WIDTH 17.2 % (0-14.5); WHITE BLOOD COUNT 7.1 10*3/uL (4.8-10.8)
[2023-06-05 08:00] VITALS: BP 123/86
[2023-06-05 08:08] LABS: POTASSIUM 5.4 mmol/L (3.4-5.1)
[2023-06-05 12:00] VITALS: BP 106/38
[2023-06-05 16:00] VITALS: BP 113/43
[2023-06-05 20:00] VITALS: BP 105/51
[2023-06-06] VITALS: BP 100/42
[2023-06-06 06:07] LABS: BASO % 0.4 % (0.0-1.0); EOS # 0.4 10*3/uL (0.0-0.4); EOS % 5.3 % (1.0-4.0); HEMATOCRIT 29.9 % (37.0-47.0); LYMPH # 1.3 10*3/uL (1.3-4.4); LYMPH % 18.2 % (27.0-41.0); MEAN CORPUSCULAR HGB 29.1 pg (27.0-31.0); MEAN CORPUSCULAR HGB CONC 28.8 g/dl (33.0-37.0); MEAN PLATELET VOLUME 9.9 fl (9.6-12.3); MONO % 13.1 % (3.0-9.0); NEUT # 4.6 10*3/uL (2.3-7.9); NEUT % 62.7 % (47.0-73.0); PLATELET COUNT AUTOMATED 140 10*3/uL (130-400); RED BLOOD COUNT 2.96 10*6/uL (4.10-5.10); RED CELL DISTRI WIDTH 17.2 % (0-14.5); WHITE BLOOD COUNT 7.3 10*3/uL (4.8-10.8)
[2023-06-06 06:41] LABS: POTASSIUM 5.4 mmol/L (3.4-5.1)
[2023-06-06 08:26] VITALS: BP 119/49
[2023-06-06 11:40] VITALS: BP 106/47
[2023-06-06 16:00] VITALS: BP 99/50
[2023-06-06 20:00] VITALS: BP 105/59
[2023-06-07] VITALS: BP 120/73
[2023-06-07 06:50] LABS: POTASSIUM 5.5 mmol/L (3.4-5.1)
[2023-06-07 08:00] VITALS: BP 110/50
[2023-06-07 12:00] VITALS: BP 105/60
[2023-06-07 16:00] VITALS: BP 90/40
[2023-06-07 17:53] VITALS: BP 110/60
[2023-06-07 20:00] VITALS: BP 98/48
[2023-06-08] VITALS (7 sets, daily range): BP systolic 78–129; BP diastolic 36–90
[2023-06-08 05:22] LABS: POTASSIUM 5.1 mmol/L (3.4-5.1)
[2023-06-08 06:10] LABS: BASO % 0.3 % (0.0-1.0); EOS # 0.4 10*3/uL (0.0-0.4); EOS % 6.3 % (1.0-4.0); HEMATOCRIT 31.2 % (37.0-47.0); LYMPH # 1.4 10*3/uL (1.3-4.4); LYMPH % 22.1 % (27.0-41.0); MEAN CORPUSCULAR HGB 29.2 pg (27.0-31.0); MEAN CORPUSCULAR HGB CONC 29.5 g/dl (33.0-37.0); MEAN PLATELET VOLUME 10.3 fl (9.6-12.3); MONO # 0.8 10*3/uL (0.1-1.0); MONO % 12.6 % (3.0-9.0); NEUT # 3.7 10*3/uL (2.3-7.9); NEUT % 58.4 % (47.0-73.0); PLATELET COUNT AUTOMATED 155 10*3/uL (130-400); RED BLOOD COUNT 3.15 10*6/uL (4.10-5.10); RED CELL DISTRI WIDTH 17.5 % (0-14.5); WHITE BLOOD COUNT 6.3 10*3/uL (4.8-10.8)
[2023-06-09] VITALS: BP 125/39
[2023-06-09 05:35] LABS: POTASSIUM 5.1 mmol/L (3.4-5.1); TOTAL PROTEIN 6.2 gm/dL (6.0-8.0)
[2023-06-09 06:18] LABS: BASO % 0.3 % (0.0-1.0); EOS # 0.5 10*3/uL (0.0-0.4); EOS % 7.1 % (1.0-4.0); HEMATOCRIT 31.9 % (37.0-47.0); LYMPH # 1.3 10*3/uL (1.3-4.4); LYMPH % 17.7 % (27.0-41.0); MEAN CELL VOLUME 98.2 fl (81.0-99.0); MEAN CORPUSCULAR HGB 29.2 pg (27.0-31.0); MEAN CORPUSCULAR HGB CONC 29.8 g/dl (33.0-37.0); MEAN PLATELET VOLUME 10.5 fl (9.6-12.3); MONO # 0.8 10*3/uL (0.1-1.0); MONO % 10.8 % (3.0-9.0); NEUT # 4.7 10*3/uL (2.3-7.9); NEUT % 63.8 % (47.0-73.0); PLATELET COUNT AUTOMATED 176 10*3/uL (130-400); RED BLOOD COUNT 3.25 10*6/uL (4.10-5.10); RED CELL DISTRI WIDTH 17.6 % (0-14.5); WHITE BLOOD COUNT 7.3 10*3/uL (4.8-10.8)
[2023-06-09 08:00] VITALS: BP 128/57
[2023-06-09 10:21] VITALS: BP 110/70
[2023-06-09 12:00] VITALS: BP 93/57
[2023-06-09 20:00] VITALS: BP 126/53
[2023-06-10] VITALS: BP 126/53
[2023-06-10 05:31] LABS: POTASSIUM 4.7 mmol/L (3.4-5.1); TOTAL PROTEIN 6.1 gm/dL (6.0-8.0)
[2023-06-10 06:46] LABS: BASO % 0.3 % (0.0-1.0); EOS # 0.3 10*3/uL (0.0-0.4); EOS % 3.8 % (1.0-4.0); HEMATOCRIT 31.7 % (37.0-47.0); LYMPH # 1.1 10*3/uL (1.3-4.4); LYMPH % 15.4 % (27.0-41.0); MEAN CELL VOLUME 99.4 fl (81.0-99.0); MEAN CORPUSCULAR HGB 29.5 pg (27.0-31.0); MEAN CORPUSCULAR HGB CONC 29.7 g/dl (33.0-37.0); MEAN PLATELET VOLUME 10.1 fl (9.6-12.3); MONO # 0.7 10*3/uL (0.1-1.0); MONO % 8.9 % (3.0-9.0); NEUT # 5.2 10*3/uL (2.3-7.9); NEUT % 71.3 % (47.0-73.0); PLATELET COUNT AUTOMATED 162 10*3/uL (130-400); RED BLOOD COUNT 3.19 10*6/uL (4.10-5.10); RED CELL DISTRI WIDTH 17.7 % (0-14.5); WHITE BLOOD COUNT 7.3 10*3/uL (4.8-10.8)
[2023-06-10 08:00] VITALS: BP 105/28
[2023-06-10 12:00] VITALS: BP 126/48
[2023-06-10 16:00] VITALS: BP 118/37
[2023-06-10 20:00] VITALS: BP 129/46
[2023-06-11] VITALS: BP 118/78
[2023-06-11 08:00] VITALS: BP 112/64
[2023-06-11 12:00] VITALS: BP 102/64
[2023-06-11] MEDS ORDERED: DOCUSATE SOD100 MG PO (12:49)
[2023-06-11] MEDS ORDERED: OXYCODONE HCL5 MG PO (12:49)
[2023-06-11] MEDS ORDERED: ALDACTONE25 MG PO ×2 (12:49)
[2023-06-11] MEDS ORDERED: LACTULOSE20 GM/30 M PO (15:10)
== END 2023-06-11 15:00 | DRG 689 ==
LOC: ED 08:46 → EDHOLD 10:58 → 4E 10:58 → EDHOLD 10:59 → 4E 16:03
PROVIDERS: Emergency Medicine; Internal Medicine; Registered Nurse; Student in an Organized Health Care Education/Training Program; ADMIT Family Medicine; ATTEND Family Medicine
PROC: 02HV33Z Insertion of Infusion Device into Superior Vena Cava, Percutaneous Approach (ICD-10-PCS; principal; 2023-06-07)
PROC: B548ZZA Ultrasonography of Superior Vena Cava, Guidance (ICD-10-PCS; 2023-06-07)
DX: N30.01 Acute cystitis with hematuria (principal); G93.41 Metabolic encephalopathy; N17.0 Acute kidney failure with tubular necrosis; E44.0 Moderate protein-calorie malnutrition; I13.0 Hypertensive heart and chronic kidney disease with heart failure and stage 1 through stage 4 chronic kidney disease, or unspecified chronic kidney disease; I50.32 Chronic diastolic (congestive) heart failure; J96.10 Chronic respiratory failure, unspecified whether with hypoxia or hypercapnia; E78.5 Hyperlipidemia, unspecified; I48.91 Unspecified atrial fibrillation; E87.5 Hyperkalemia; R80.9 Proteinuria, unspecified; E86.0 Dehydration; K21.9 Gastro-esophageal reflux disease without esophagitis; R63.4 Abnormal weight loss; E11.22 Type 2 diabetes mellitus with diabetic chronic kidney disease; N18.30 Chronic kidney disease, stage 3 unspecified; I25.10 Atherosclerotic heart disease of native coronary artery without angina pectoris; Z95.818 Presence of other cardiac implants and grafts; Z79.899 Other long term (current) drug therapy; Z79.01 Long term (current) use of anticoagulants; Z95.0 Presence of cardiac pacemaker; Z90.49 Acquired absence of other specified parts of digestive tract; Z68.26 Body mass index [BMI] 26.0-26.9, adult

== ENCOUNTER 2023-06-13 11:02 | Emergency (ER) | payer OTHER ==
[~2023-06-13] VITALS: Wt 73.5 kg
[~2023-06-13 11:02] MED LIST changes: +DOCUSATE SOD100 MG PO; +ESTRADIOL42.5 GM V; +GEMTESA75 MG PO; +HYDROXYZINE HCL25 MG PO; +LACTULOSE20 GM/30 M PO; +MULTIVITAMIN1 EACH PO; +MYSOLINE50 M2 PO; +Magnesium Oxid400 MG PO; +OXYCODONE HCL5 MG PO; +SIMVASTATIN40 MG PO; +TOPROL XL25 MG PO; +VITAMIN D325 MC1 PO
[2023-06-13 11:54] LABS: BASO % 0.1 % (0.0-1.0); EOS # 0.1 10*3/uL (0.0-0.4); EOS % 0.9 % (1.0-4.0); HEMATOCRIT 36.4 % (37.0-47.0); LYMPH % 7.7 % (27.0-41.0); MEAN CELL VOLUME 96.6 fl (81.0-99.0); MEAN CORPUSCULAR HGB 29.4 pg (27.0-31.0); MEAN CORPUSCULAR HGB CONC 30.5 g/dl (33.0-37.0); MEAN PLATELET VOLUME 9.5 fl (9.6-12.3); MONO # 0.9 10*3/uL (0.1-1.0); MONO % 6.5 % (3.0-9.0); NEUT # 11.3 10*3/uL (2.3-7.9); NEUT % 84.4 % (47.0-73.0); PLATELET COUNT AUTOMATED 209 10*3/uL (130-400); RED BLOOD COUNT 3.77 10*6/uL (4.10-5.10); RED CELL DISTRI WIDTH 17.3 % (0-14.5); WHITE BLOOD COUNT 13.4 10*3/uL (4.8-10.8)
[2023-06-13 12:06] LABS: BILIRUBIN Negative (Negative); BLOOD 3+ (Negative); CLARITY Turbid (Clear); COLOR Yellow (Yellow); GLUCOSE Negative (Negative); KETONE Trace (Negative); LEUKO ESTERASE 3+ (Negative); NITRITE Negative (Negative); SPECIFIC GRAVITY 1.015 (1.001-1.030)
[2023-06-13 12:06] LABS: ACT PARTIAL THROMBO TIME 31.3 SECONDS (20.0-32.1); INTERNATIONAL NORM RATIO 1.2 (2.0-3.5)
[2023-06-13] MEDS ORDERED: ALDACTONE25 MG PO (12:17)
[2023-06-13 12:23] LABS: BACTERIA 2+; EPITHELIAL CELLS 16-20; RBC TNTC rbc/hpf (0-2); WBC TNTC wbc/hpf (0-5); YEAST 1+
[2023-06-13] MEDS ORDERED: ONDANSETRON HYDR4 M1 PO (12:23)
[2023-06-13] MEDS ORDERED: DULCOLAX STOOL100 M1 PO ×2 (12:24→12:25)
[2023-06-13 12:38] LABS: POTASSIUM 4.9 mmol/L (3.4-5.1); TOTAL PROTEIN 6.4 gm/dL (6.0-8.0)
== END 2023-06-13 14:15 | disposition short-term general hospital (02) ==
LOC: ED 11:02
PROVIDERS: Physician Assistant Medical
DX: K66.8 Other specified disorders of peritoneum (principal); R11.2 Nausea with vomiting, unspecified; Z79.899 Other long term (current) drug therapy; Z79.82 Long term (current) use of aspirin; Z95.0 Presence of cardiac pacemaker